=== PATIENT | male | born 1950 | race Caucasian/White ===

== ENCOUNTER 2024-11-04 23:33 | Inpatient (IN) | payer MEDICARE, SELFPAY ==
--- NOTE | ~2024-11-04 | XR_ITS ---
EXAMINATION: XR abdomen/kub 1V DATE: 11/09/2024 09:49 INDICATION: Nausea. TECHNIQUE: A supine view of the abdomen was obtained. COMPARISON: CT abdomen and pelvis 11/05/2024 FINDINGS: There are no dilated loops of bowel. There is a moderate volume of stool in the colon. Ther e is a benign bone island in left femoral head. IMPRESSION: 1. Normal bowel gas pattern. Reviewed, dictated and finalized at location A.
--- NOTE | ~2024-11-04 | XR_ITS ---
EXAMINATION: XR chest 1V portable DATE: 11/08/2024 05:55 INDICATION: Pneumonia. TECHNIQUE: A single frontal view of the chest was obtained on 2 radiographs. COMPARISON: Chest single view 11/07/2024, chest CT 11/05/2024 FINDINGS: The patient is rotated to his left. There is mild elevation of right hemidiaphragm. There a re mild airspace opacities in left lower lobe. No pleural effusion or pneumothorax. The heart size is normal. IMPRESSION: 1. Mild airspace opacities in left lower lobe with interval improvement, consistent with pneumonia. Reviewed, dictated and finalized at location A. IMPRESSION: 1. Mild airspace opacities in left lower lobe with interval improvement, consis tent with pneumonia.
--- NOTE | ~2024-11-04 | XR_ITS ---
EXAMINATION: XR barium swallow modified DATE: 11/08/2024 14:06 INDICATION: Dysphagia. Pneumonia. TECHNIQUE: The patient was given barium-containing material of multiple consistencies to swallow by t kaylee speech pathologist while I performed fluoroscopy. Fluoroscopy exposure time was 0.6 minutes. The n umber of fluoroscopy images saved to the PACS was 1. Dose-area product was 0.4776 Gy-cm^2. FINDINGS: The oral stage, pharyngeal stage, and cervical/esophageal stage of the swallow are normal. IMPRESSION: 1. Normal modified barium swallow. 2. Please refer to the speech therapy report for recommendations. Reviewed, dictated and finalized at location A.
--- NOTE | ~2024-11-04 | XR_ITS ---
EXAMINATION: XR chest 1V portable DATE: 11/07/2024 06:07 INDICATION: Pneumonia. TECHNIQUE: A single frontal view of the chest was obtained. COMPARISON: Chest single view 11/06/2024, chest CT 11/05/2024 FINDINGS: The patient is rotated to his left. There are airspace opacities in the lower lung zones. N o pleural effusion or pneumothorax. The heart size is normal. There is a prominent left pericardial f at pad. The nasogastric tube tip is beyond the inferior margin of the radiograph, but at least to the stomach. The endotracheal tube tip is 4.1 cm above the gaby. There are likely changes of distal ri ght clavicle resection. IMPRESSION: 1. Stable airspace opacities in the lower lung zones, consistent with pneumonia. Reviewed, dictated and finalized at location A. IMPRESSION: 1. Stable airspace opacities in the lower lung zones, consistent with pneumonia .
--- NOTE | ~2024-11-04 | XR_ITS ---
EXAMINATION: XR chest 1V portable DATE: 11/10/2024 05:49 INDICATION: Pneumonia. TECHNIQUE: A single frontal view of the chest was obtained. COMPARISON: Chest single view 11/09/2024 FINDINGS: There is no pneumonia, pleural effusion, or pneumothorax. The heart size is normal. IMPRESSION: 1. No acute cardiopulmonary disease. Reviewed, dictated and finalized at location A.
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
--- NOTE | ~2024-11-04 | XR_ITS ---
CHEST RADIOGRAPH CLINICAL HISTORY: Pneumonia . COMPARISON: 11/04/2024 TECHNIQUE: Single portable view of the chest. FINDINGS Endotracheal tube is identified with its tip projecting approximately 3 cm above the base of the heather na. Nasogastric tube identified with its tip extending below the left hemidiaphragm, presumably within th e stomach. The remainder of the cardiomediastinal silhouette is otherwise unremarkable. Air bronchograms are present within the superior segment of the right lower lobe and the left lower l obe, along the medial margin for which infiltrates are suspected. The remainder of the lungs are clear. IMPRESSION: Bilateral infiltrates, as detailed above. Supportive lines and tubes in good position. Reviewed, dictated and finalized at location A.
--- NOTE | ~2024-11-04 | XR_ITS ---
EXAMINATION: XR chest 1V portable DATE: 11/09/2024 05:47 INDICATION: Pneumonia. TECHNIQUE: A single frontal view of the chest was obtained. COMPARISON: Chest single view 11/08/2024, chest CT 11/05/2024 FINDINGS: There are mild airspace opacities in left lower lung zone. No pleural effusion or pneumotho rax. The heart size is normal. IMPRESSION: 1. Stable mild airspace opacities in left lower lung zone, consistent with pneumonia. Reviewed, dictated and finalized at location A. IMPRESSION: 1. Stable mild airspace opacities in left lower lung zone, consistent with pneu monia.
--- NOTE | ~2024-11-04 | XR_ITS ---
XR abdomen gastric tube insert INDICATION: Evaluate position. TECHNIQUE: Limited KUB perform for evaluating NG tube . COMPARISON: No prior studies for comparison. FINDINGS: NG tube tip in the stomach. Visualized bowel gas pattern is unremarkable.Patchy bilateral airspace disease of the lungs, consistent with pneumonia. IMPRESSION: 1: NG tube tip in the stomach. Reviewed, dictated and finalized at location B.
--- NOTE | ~2024-11-04 | CT_ITS ---
EXAMINATION: CT BRAIN W/O DATE: 11/05/2024 00:36 INDICATION: Head trauma TECHNIQUE: Computed tomography (CT) of the head was performed without intravenous contrast. The dose- length product was 983.67 mGy-cm. Automated exposure control and iterative reconstruction technique were employed. COMPARISON: No prior studies for comparison. FINDINGS: Mild generalized atrophy. There are scattered mild periventricular and subcortical white ma tter changes, most likely related to small vessel ischemic disease (microangiopathy). No ventriculome perla or midline shift. Mild mucosal thickening of the ethmoid sinuses. Mastoids are pneumatized. No d epressed skull fractures. No ventriculomegaly or midline shift. Midline sagittal images demonstrate a normal corpus callosum, c raniovertebral junction and sella turcica. Basilar cisterns are patent. Paranasal sinuses and mastoids are pneumatized. No depressed skull fractures. IMPRESSION: 1. No acute intracranial abnormality. Reviewed, dictated and finalized at location B.
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
--- NOTE | ~2024-11-04 | CT_ITS ---
EXAMINATION: CT chest abdomen pelvis wo con DATE: 11/05/2024 07:01 CDT INDICATION: Trauma. TECHNIQUE: Computed tomography (CT) of the chest and abdomen was performed without intravenous contra st. The dose-length product was 1162.08 mGy-cm. Automated exposure control and iterative reconstructi on technique were employed. COMPARISON: None FINDINGS: CHEST CT: There is an endotracheal tube present. NG tube in the stomach. There is patchy bilateral airspace con solidation of all lobes predominantly affecting the lower lobes, compatible with pneumonia. No pneumo thorax. No endobronchial lesions. Contrast not given for evaluation of pulmonary embolism. Moderate t horacic and lumbar spondylosis. Small hiatal hernia. ABDOMEN CT: The liver, spleen, pancreas, adrenal glands and kidneys are unremarkable. No focal bowel thickening. Enlarged prostate gland. Allen catheter present in the bladder. Nonobstructive bowel gas pattern. No significant abnormality of the aorta. No lymphadenopathy. Small left inguinal hernia. No acute osseou s abnormality. There is moderate thoracic and lumbar spondylosis. There is a sclerotic lesion of the left femoral head, likely benign bone island, although metastatic disease not excluded. IMPRESSION: 1. Extensive patchy airspace consolidation, consistent with pneumonia. 2: Sclerotic lesion left femoral head, most likely benign bone island, although in the presence of en larged prostate gland, metastatic disease secondary to prostate cancer should be considered. Reviewed, dictated and finalized at location B. IMPRESSION: 1. Extensive patchy airspace consolidation, consistent with pneumonia. 2: Sclerotic lesion left femoral head, most likely benign bone island, although in the presence of enlarged prostate gland, metastatic disease secondary to pr ostate cancer should be considered.
--- NOTE | ~2024-11-04 | US_ITS ---
EXAMINATION: US carotid duplex BI DATE: 11/06/2024 12:24 INDICATION: Syncope TECHNIQUE: Grayscale, color Doppler, and pulsed Doppler images of the cervical carotid arteries were obtained. The degree of vessel stenosis is placed in one of the following categories: normal, <50%, 5 0-69%, >=70% but less than near-occlusion, near-occlusion, or total occlusion. Note that percent sten osis relative to normal distal artery lumen diameter is indirectly measured from velocity measurement s as described by Ananda, et al. Radiology 2003; 229:340-346. COMPARISON: None. FINDINGS: RIGHT: The right common carotid artery (CCA) peak systolic velocity (PSV) is 77.8 cm/s. The right internal c arotid artery (ICA) PSV is 67.7 cm/s. The right ICA end-diastolic velocity (EDV) is 9.5 cm/s. The rig ht ICA/CCA PSV ratio is 0.9. Grayscale and color Doppler images yield an estimate of less than 50% di ameter reduction from plaque in the ICA. The external carotid artery (ECA) PSV is 203.6 cm/s. There i s antegrade flow in the right vertebral artery. LEFT: The left CCA PSV is 98.6 cm/s. The left ICA PSV is 112.5 cm/s. The left ICA EDV is 21.2 cm/s. The lef t ICA/CCA PSV ratio is 1.1. Grayscale and color Doppler images yield an estimate of less than 50% agustín meter reduction from plaque in the ICA. The ECA PSV is 116.2 cm/s. Left vertebral artery flow is not visualized. IMPRESSION: 1. Less than 50% stenosis in the right internal carotid artery. 2. Less than 50% stenosis in the left internal carotid artery. Reviewed, dictated and finalized at Location A. Reviewed, dictated and finalized at location A.
--- NOTE | ~2024-11-04 | NM_ITS ---
EXAMINATION: NM bone scan whole body DATE: 11/14/2024 14:44 INDICATION: Femoral bone lesion. TECHNIQUE: 25.7 mCi Tc-99m HDP was administered intravenously. Delayed whole-body scintigrams were o btained. Additional smaller [id number] anterior and posterior scintigrams of the bilateral femurs were obtained and left and right lateral scintigrams of the cervical spine were obtained. COMPARISON: CT cervical spine and chest, abdomen and pelvis dated 11/05/2024 FINDINGS: Focal increased uptake associated with severe facet osteoarthritis as evidenced on prior CT on the le ft at C2-C3 and C7-T1. Degenerative joint centered uptake with corresponding osteoarthritic changes a t the bilateral sternoclavicular and left acromioclavicular joints. Additional likely degenerative bety int centered uptake at the bilateral hands and wrists at the medial compartment of the right knee. Th ere is some urine contamination projecting over the left thigh and hip on the anterior whole-body sci ntigrams which is not present on the follow-up smaller [id number] scintigrams. No abnormal uptake associated with the large sclerotic bone islands with typical spiculated margins at the left femoral neck. IMPRESSION: 1. No abnormal uptake associated with the large amount at the left femoral neck. 2. Scattered degenerative joint centered uptake in the axial and appendicular skeleton as detailed ab ove. No other lesions suspicious for malignancy/metastatic disease. Reviewed, dictated and finalized at location B. IMPRESSION: 1. No abnormal uptake associated with the large amount at the left femoral neck . 2. Scattered degenerative joint centered uptake in the axial and appendicular s ke[place] as detailed above. No other lesions suspicious for malignancy/metastati c disease.
[2024-11-04 23:16] VITALS: BP 151/110; PULSE 139; RESP 26; TEMP 36.3; O2SAT 100
[2024-11-04 23:40] VITALS: O2SAT 92
--- NOTE | 2024-11-04 23:44 | ECG_ITS ---
Test Date: 2024-11-04 23:34:53 Measurements Intervals [place] Rate: 140 P: 244 MS: 89 QRS: -40 QRSD: 150 T: 87 QT: 359 QTc: 549 Interpretive Statements TACHYCARDIA, POSSIBLY EXTREME SINUS TACHYCARDIA VS ATRIAL FLUTTER LEFT AXIS DEVIATION [QRS AXIS < -30] LEFT BUNDLE BRANCH BLOCK [120+ ms QRS DURATION, 80+ ms Q/S IN V1/V2, 85+ ms R IN I/aVL/V5/V6] No previous ECG available for comparison Electronically Signed On 11-05-2024 17:33:32 CDT by Jose Luis Yeager M.D.
[2024-11-04 23:45] VITALS: O2SAT 94
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
[2024-11-04 23:58] VITALS: PULSE 99; O2SAT 100
[2024-11-04] MEDS: ETOMIDATE 20 MG/10 ML AMPUL IV PUSH (23:59)
[2024-11-04] MEDS: SUCCINYLCHOLINE CHLORIDE 20 MG/ML 10 ML VIAL 100 MG IV PUSH (23:59)
[2024-11-05] VITALS (48 sets, daily range): BP systolic 93–179; BP diastolic 45–128; PULSE 71–134; RESP 12–25; TEMP 37.1–37.9; O2SAT 97–100; BMI 29.2
[2024-11-05] MEDS: PROPOFOL IV EMULSION 100 ML 2.93 MG IV CONT
--- NOTE | 2024-11-05 | ECHO_ITS ---
Patient Info Name: Renaldo Whitaker Age: 74 years : 1950 Gender: Male Ht: 72 in Wt: 215 lbs BSA: 2.25 m2 HR: 91 bpm BP: 148 / 101 mmHg Heart Rhythm: Sinus Rhythm Technical Quality: Fair Exam Date: 11/05/2024 1:28 PM Exam Location: Echo Lab Patient Status: Inpatient Admit Date: 11/05/2024 Staff Ordering Physician: Ce Melendez PA-C Wet Room Worker: Mary Harmon RDCS Attending Provider: Nataly Chavis MD Referring Physician: Nora MAC; Exam Type: CA echo doppler color flow Study Info Indications - LBBB - Syncope Complete two-dimensional, color flow and Doppler transthoracic echocardiogram is performed. Summary 1. Left ventricular chamber dimension is normal. 2. There is mildly increased left ventricular wall thickness. 3. Left ventricular systolic function is moderately reduced, estimated at 30-35%. 4. Global hypokinesis with more pronounced hypokinesis of the anteroseptum, mid inferoseptum, apex. 5. The left ventricular diastolic function is grade I diastolic dysfunction. 6. Right ventricular systolic function is normal. 7. Left atrial chamber dimension is moderately enlarged. 8. No significant valvular disease. Left Ventricle Left ventricular chamber dimension is normal. There is mildly increased left ventricular wall thickness. Left ventricular systolic function is moderately reduced, estimated at 30-35%. Global hypokinesis with more pronounced hypokinesis of the anteroseptum, mid inferoseptum, apex. The left ventricular diastolic function is grade I diastolic dysfunction. Right Ventricle Right ventricular chamber dimension is normal. Right ventricular systolic function is normal. Left Atria Left atrial chamber dimension is moderately enlarged. Right Atria Right atrial chamber dimension is normal. Atrial Septum Intact interatrial septum visualized by color flow imaging. Aortic Valve The aortic valve is probable trileaflet. There is no aortic valve stenosis. There is no aortic valve regurgitation. There is mild aortic valve calcification. Pulmonic Valve The pulmonic valve is not well visualized. There is no pulmonic regurgitation. Mitral Valve There is trace mitral valve regurgitation. Tricuspid Valve There is trace tricuspid valve regurgitation. Pericardium/Pleural There is no pericardial effusion. Inferior Vena Cava Inferior vena cava is not well visualized. Aorta The aortic root size at the sinus of Valsalva is normal. Left Ventricular Outflow Tract Name Value Normal LVOT 2D LVOT Diameter 2.1 cm LVOT Doppler LVOT Peak Gradient 4 mmHg LVOT Mean Gradient 2 mmHg LVOT VTI 19 cm LVOT VTI/AV VTI Ratio 0.8 LVOT Stroke Volume 67 ml LVOT CO 5.0 l/min LVOT CI 2.2 l/min/m2 Pulmonic Valve Name Value Normal RVOT Doppler RVOT Peak Gradient 2 mmHg PV Doppler PV Peak Gradient 3 mmHg Mitral Valve Name Value Normal MV Doppler MV Decel [place] 212 cm/s2 MV PHT 61 ms MV Area (PHT) 3.6 cm2 4.0-5.0 MV Diastolic Function MV E Peak Velocity 45 cm/s MV A Peak Velocity 94 cm/s MV E/A 0.5 MV Decel Time 211 ms MV Annular TDI MV E/e' (Septal) 14.4 <=8.0 MV E/e' (Lateral) 9.2 <=8.0 MV E/e' (Average) 11.8 Tricuspid Valve Name Value Normal TV Regurgitation Doppler TR Peak Velocity 121 cm/s TR Peak Gradient 6 mmHg Aortic Valve Name Value Normal AV Doppler AV Peak Velocity 121 cm/s AV Peak Gradient 6 mmHg AV Mean Gradient 4 mmHg AV VTI 25 cm AV Area (Cont Eq VTI) 2.7 cm2 >=3.0 AV Area (Cont Eq Vipin) 2.9 cm2 AV Regurgitation 2D LVOT Area 3.6 cm2 Ventricles Name Value Normal LV Dimensions 2D/MM IVS Diastolic Thickness (2D) 1.1 cm 0.6-1.0 LVID Diastole (2D) 4.4 cm 4.2-5.8 LVIW Diastolic Thickness (2D) 1.1 cm 0.6-1.0 LVID Systole (2D) 3.2 cm 2.5-4.0 LVOT Diameter 2.1 cm LV Mass (2D Cubed) 175.25 g 88.00-224.00 LV Mass Index (2D Cubed) 78 g/m2 49-115 Relative Wall Thickness (2D) 0.52 LV Fractional Shortening/Ejection Fraction 2D/MM LV Fractional Shortening (2D) 28 % 25-43 LV EF (2D Teicholz) 55 % 52-72 LV Diastolic Volume (4C MOD) 164 ml LV EF (4C MOD) 57 % LV Diastolic Volume (2C MOD) 164 ml LV EF (2C MOD) 48 % LV Diastolic Volume (BP MOD) 167 ml 62-150 LV Diastolic Volume Index (BP MOD) 74 ml/m2 34-74 LV Systolic Volume (BP MOD) 81 ml 21-61 LV Systolic Volume Index (BP MOD) 36 ml/m2 11-31 LV EF (BP MOD) 51 % 52-72 LV Diastolic Length (4C) 8.9 cm LV Systolic Length (4C) 7.5 cm LV Stroke Volume (4C MOD) 93 ml Atria Name Value Normal LA Dimensions LA Volume (4C A-L) 74 ml LA Volume (BP A-L) 72 ml RA Dimensions RA Area (4C) 14.2 cm2 <=18.0 Report Signatures
[2024-11-05 00:07] LABS: Add Urine Microscopic? YES; Appearance Urine Clear (Clear); Bacteria Urine None Seen /hpf; Bilirubin Urine Negative (Negative); Blood Urine Trace (Negative); Color Urine Yellow (Yellow); Glucose Urine UA 2+ mg/dL (Negative); Ketones Urine Negative (Negative); Leukocyte Esterase Ur Negative LEU/UL (Negative); Nitrate Urine Negative (Negative); Non Pathogenic Casts 0-2; Protein Urine 2+ mg/dL (Negative); Specific Grav Ur 1.017 (1.001-1.035); Squamous Epithelial Cell Urine None Seen /hpf (Few); Urobilinogen Urine 0.2 mg/dL (<2.0); WBC Urine 0-5 /hpf (0-3)
[2024-11-05 00:09] LABS: Lactic Acid Reflex 2.3 mmol/L (0.7-2.0)
[2024-11-05 00:10] LABS: Alanine Aminotransferase 50 U/L (6-50); Albumin Level 4.7 g/dL (3.5-5.1); Alkaline Phosphatase 81 U/L (38-126); Anion Gap 16 mmol/L (4-12); Aspartate Amino Transferase 45 U/L (17-59); Blood Urea Nitrogen 12 mg/dL (9-20); Calcium 8.7 mg/dL (8.4-10.2); Carbon Dioxide 19 mmol/L (22-30); Chloride 103 mmol/L (98-107); Estimated CRCL calculation 62 ml/min; Estimated Glomerular Filt Rate > 60; Glucose 189 mg/dL (65-110); Lipase 130 U/L (23-300); Magnesium 1.8 mg/dL (1.6-2.3); Potassium 3.6 mmol/L (3.4-5.0); Sodium 138 mmol/L (137-145); Triglycerides 172 mg/dL (<150)
[2024-11-05 00:11] LABS: Ethanol < 10 mg/dL (<10)
[2024-11-05 00:15] LABS: Prothrombin Time 13.2 Seconds (11.1-14.7)
[2024-11-05 00:16] LABS: Basophils Percent Auto 0.3 % (0.2-1.2); Eosinophils Absolute Auto 0.1 K/mm3 (0-0.3); Eosinophils Percent Auto 1.5 % (0-4.4); Hematocrit 48.5 % (42.0-52.0); Hemoglobin 17.2 g/dL (14.0-18.0); Immature Granulocyte Absolute 0.04 K/mm3 (0.00-0.031); Immature Granulocyte Percent A 0.5 % (0-0.5); Lymphocytes Absolute Auto 0.98 K/mm3 (0.9-3.2); Lymphocytes Percent Auto 11.2 % (18.3-44.2); Mean Corpuscular HGB Conc 35.5 g/dl (32-36); Mean Corpuscular Hemoglobin 32.9 pg (26-34); Mean Corpuscular Volume 92.7 fl (80-100); Mean Platelet Volume 10.5 fl (7.4-10.4); Monocytes Percent Auto 11.4 % (2.6-8.5); Neutrophils Absolute Auto 6.6 K/mm3 (1.3-6.7); Neutrophils Percent Auto 75.1 % (45.5-73.1); Partial Thromboplastin Time 36.6 Seconds (22.3-36.8); Platelet Count Result 182 k/mm3 (150-375); Red Blood Count 5.23 M/mm3 (4.6-6.20); Red Cell Distribution Width 11.9 % (11.5-14.5); White Blood Count 8.8 K/mm3 (4.5-10.0)
[2024-11-05 00:26] LABS: NT Pro B Type Natriuretic Pept 372 pg/mL (19.9-100); Troponin I 0.022 ng/mL (0.000-0.034)
[2024-11-05 00:30] LABS: Amphetamine Screen Urine Negative (Negative); Barbiturate Screen Urine Negative (Negative); Benzodiazepines Screen Urine Negative (Negative); Cannabinoid Screen Urine Negative (Negative); Cocaine Screen Urine Negative (Negative); Methadone Screen Urine Negative (Negative); Opiate Screen Urine Negative (Negative); Phencyclidine Screen Urine Negative (Negative)
[2024-11-05 00:33] LABS: Procalcitonin 0.1 ng/mL
[2024-11-05 00:33] LABS: Influenza A QL RT-PCR Negative (Negative); Influenza B QL RT-PCR Negative (Negative); RSV RNA, RT-PCR Negative (Negative); SARS-CoV-2 RNA PCR Positive (Negative)
[2024-11-05 00:49] LABS: Alveolar/Arterial O2 Gradient 283.2 mmHg; Base Excess ABG -3.6 mEq/l (+/-2.0); Fractional Inspired Oxygen 60 %; HCO3 ABG 20.7 mEq/l (22.0-26.0); Oxygen Content ABG 24.2 %vol (16.0-22.0); Oxygen Saturation ABG 97.8 % (95.0-100.0); Oxyhemoglobin 97.5 % THb (90.0-100.0); PCO2 ABG 35.8 mmHg (35.0-45.0); PO2 ABG 105.2 mmHg (80.0-100.0); PO2 FiO2 Ratio Arterial Blood 1.75 %; Total Hemoglobin 17.6 g/dL (12.0-18.0)
[2024-11-05 00:54] LABS: Device VENTILATOR; Modified Allen's Test Pass; Site Drawn LEFT RADIAL
[2024-11-05 00:55] LABS: Arterial Blood Gas PEEP 5 cmH2O; Arterial Blood Gas Tidal Volume 500 ml; Arterial Blood Gas Vent Mode CMV; Arterial Blood Gas Ventilator rate 18 /MIN
[2024-11-05] MEDS: FENTANYL 2,500MCG/NS250ML(*CRX 2,500 MCG/250 ML BAG IV CONT ×2 (01:07→05:24)
[2024-11-05] MEDS: MIDAZOLAM 100MG/NS 100ML(*CRX) 100 MG/100 ML BAG IV CONT (01:08)
--- OUTSIDE RECORDS SUMMARY | 2024-11-05 01:13 | XMS_ITS | Encounter Summary ---
Author Organization [facility] Facility Care Team Providers Care Photoengraving Retoucher Name Role Phone Noam Acevedo MD Primary Care Provider [phone] Shana Rogers MD, Sharif Spencer Primary Care Provide r Mehran Colon MD Unavailable [phone] Encounter Details Date Type Department Care Team (Latest Contact Info) Description 08/13/2018 Orders Only [facility] ProviderTanya MD [address] [place] [id number] Social History Tobacco Use Types Packs/Day Years Used Date Smoking Tobacco: Never Assessed Sex and Gender Information Value Date Recorded Sex Assigned at Not on file Legal Sex Male 1:17 PM SILK SPOTTER Gender Identity Not on file Sexual Orientation Not on file documented as of this encounter Plan of Treatment Not on file documented as of this encounter Procedures Procedure Name Priority Date/Time Associated Diagnosis Comments CARDIOLOGY REPORT 09/06/2018 12: 00 AM SILK SPOTTER documented in this encounter Results * CARDIOLOGY REPORT (09/06/2018 12:00 AM SILK SPOTTER) Anatomical Region Laterality Modality Other Narrative 09/06/2018 12:00 AM SILK SPOTTER Ordered by an unspecified provider. Historical Provider [facility] MICAELA OLIVARES Final Result documented in this encounter Visit Diagnoses Not on filedocumented in this encounter Care Teams Photoengraving Retoucher Relationship Specialty Start Date End Date Noam Acevedo MD [address] [facility] [address] [place] [address] PCP - General 10/06/18 10/05/22 Sharif Saldana Jr., MD [address] [place] [id number] PCP - General Internal Medicine 10/06/22 Mehran Colon MD [address] [place] [address] Referring Physician Gastroenterology 10/06/22 documented as of this encounter
--- OUTSIDE RECORDS SUMMARY | 2024-11-05 01:13 | XMS_ITS | Encounter Summary ---
Author Organization [facility] - [facility] Address [address] [place] [address] Care Team Providers Care Vending Machine Refiller Name Role Phone Noam Acevedo MD Primary Care Provider Noam Acevedo MD Unavailable [phone] Encounter Details Date Type Department Care Team (Late st Contact Info) Description 08/23/2020 MyChart Message Enc [facility] Medical Group Multispecialty Care - [facility] [address] [facility] [place] [address] Tevin Garcia MD [address] [address] Question Social History Tobacco Use Types Packs/Day Years Used Date Smoking Tobacco: Former Cigarettes Q uit: 08/07/1985 Smokeless Tobacco: Never Alcohol Use Standard Drinks/Week Comments No 0 (1 standard drink = 0.6 oz pur e alcohol) AUDIT-C Answer Date Recorded Frequency of Alcohol Consumption Never 08/07/2018 Average Number of Drinks Not on file 018 Frequency of Binge Drinking Not on file 07/18 PHQ-2 Answer Date Recorded PHQ-2 Score 0 11/14/2018 Sex and Gender Information Value Date Recorded Sex Assigned at Not on file Legal Sex Male 7:02 PM CDT Gender Identity Male 10/25/2021 9:52 AM NUDE MODEL Sexual Orientation Straight 10/25/2021 9: 52 AM NUDE MODEL COVID-19 Exposure Response Date Recorded In the last month, have you been in contact with someone who was confirmed or suspected to have Coronavirus / COVID-19? No / Unsure 08/23/2020 4:08 PM NUDE MODEL documented as of this encounter Functional Status * RETIRED Are you deaf or do you have serious difficulty hearing Answer Date of Assessment Author Status No 08/09/2018 10:07 AM NUDE MODEL Acti ve * RETIRED Are you blind or do you have serious difficulty seeing, even when wearing glasses? Answer Date of Assessment Author Status No 08/09/2018 10:07 AM NUDE MODEL Acti ve * Do you have serious difficulty walking or climbing stairs? Answer Date of Assessment Author Status No 08/09/2018 10:07 AM Chika Anderson NP Active * Do you have difficulty dressing or bathing? Answer Date of Assessment Author Status No 08/09/2018 10:07 AM Chika Anderson NP Active * Because of a physical, mental, or emotional condition, do you have difficulty doing errands alone such as visiting a doctor's office or shopping? Answer Date of Assessment Author Status No 08/09/2018 10:07 AM Chika Anderson NP Active documented as of this encounter Mental Status * Because of a physical, mental, or emotional condition, do you have serious difficulty concentrating, remembering, or making decisions? Answer Entry Date Author Status No 08/09/2018 10:07 AM Chika Anderson NP Active documented in this encounter Plan of Treatment Not on file documented as of this encounter Visit Diagnoses Not on filedocumented in this encounter Additional Health Concerns Infection Onset Date Last Indicated Resolved Time COVID-19 Rule Out 09/28/2020 09/28/2020 09/28/2020 2:27 PM NUDE MODEL documented as of this encounter Care Teams Vending Machine Refiller Relationship Specialty Start Date End Date Noam Acevedo MD [address] [address] [place] [address] PCP - General 03/11/17 Noam Acevedo MD [address] [id number] PCP - Med Group - [facility] Attributed Provider 08/17/15 08/16/22 documented as of this encounter
--- OUTSIDE RECORDS SUMMARY | 2024-11-05 01:13 | XMS_ITS | Encounter Summary ---
Author Organization [facility] - [facility] Address [address] [place] [address] Care Team Providers Care Pension Examiner Name Role Phone Noam Acevedo MD Primary Care Provider Noam Acevedo MD Unavailable [phone] Encounter Details Date Type Department Care Team (Late st Contact Info) Description 08/23/2020 MyChart Message Enc [facility] Medical Group Multispecialty Care - [facility] [address] [facility] [place] [address] Tevin Garcia MD [address] [address] Other Social History Tobacco Use Types Packs/Day Years [...] CDT Gender Identity Male 10/25/2021 9:52 AM SHAFT TENDER Sexual Orientation Straight 10/25/2021 9: 52 AM SHAFT TENDER COVID-19 Exposure Response Date Recorded In the last month, have you been in contact with someone who was confirmed or suspected to have Coronavirus / COVID-19? No / Unsure 08/23/2020 4:08 PM SHAFT TENDER documented as of this encounter Functional Status * RETIRED Are you deaf or do you have serious difficulty hearing Answer Date of Assessment Author Status No 08/09/2018 10:07 AM SHAFT TENDER Acti ve * RETIRED Are you blind or do you have serious difficulty seeing, even when wearing glasses? Answer Date of Assessment Author Status No 08/09/2018 10:07 AM SHAFT TENDER Acti ve * Do you have serious [...] Rule Out 09/28/2020 09/28/2020 09/28/2020 2:27 PM SHAFT TENDER documented as of this encounter Care Teams Pension Examiner Relationship Specialty Start Date End Date Noam Acevedo MD [address] [address] [place] [address] PCP - General 03/11/17 Noam Acevedo MD [address] [id number] PCP - Med [facility] - [facility] Attributed Provider 08/17/15 08/16/22 documented as of this encounter
--- OUTSIDE RECORDS SUMMARY | 2024-11-05 01:13 | XMS_ITS | Referral Summary ---
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; Essential hypertriglyceridemia; Preventative health care from Last 3 Months Allergies No known active allergies Medications levocetirizine (XYZAL) 5 mg tablet 022 Active acyclovir (ZOVIRAX) 5 % ointment 022 Active aspirin 81 mg enteric coated tablet Take 1 tablet (81 mg total) by mouth daily Active magnesium oxide (MAG-OX) 400 mg (241.3 mg elemental magnesium) tabletIndications :hypomagnesemia Take 1 tablet (400 mg total) by mouth daily 90 tablet 3 023 Active Additional Information Patient not taking.Reported on 08/15/2024 atorvastatin (LIPITOR) 20 mg tabletIndications :Mixed hyperlipidemia Take 1 tablet (20 mg total) by mouth daily 90 tablet 3 023 Active diclofenac sodium (VOLTAREN) 1 % gelIndications:Pa in Apply 2 g topically 3 (three) times a day as needed (pain in toes) 100 g 1 024 Active clindamycin (CLEOCIN T) 1 % gelIndications:Ac ne Vulgaris Apply topically 2 (two) times a day Apply to face twice daily. 60 g 4 024 Active acyclovir (ZOVIRAX) 800 mg tabletIndications :HSV-1 infection Take 1 tablet (800 mg total) by mouth 2 (two) times a day as needed (HSV 1) 60 tablet 3 024 Active celecoxib (CeleBREX) 200 mg capsuleIndication s:Primary osteoarthritis involving multiple joints Take 1 capsule (200 mg total) by mouth daily as needed for pain 30 capsule 3 024 Active omeprazole (PriLOSEC) 40 mg capsuleIndication s:Gastroesophagea l reflux disease without esophagitis TAKE 1 CAPSULE DAILY 90 capsule 3 025 Active omeprazole (PriLOSEC) 40 mg capsuleIndication s:Gastroesophagea l reflux disease without esophagitis TAKE 1 CAPSULE DAILY 90 capsule 3 024 2024 Discontinued Active Problems Problem Noted Date Diagnosed Date Encounter for Medicare annual wellness exam 01/15 Assessment & Plan (02/08/2024 1:19 PM CDT): Reviewed previous labs and diagnostic test results. Chronic medical problems evaluated and management plans discussed with the patient. Prescription medications, supplements, vitamins and immunizations reviewed. Wear seatbelts. Use sunscreen. Discussed healthy diet and disease prevention and controlling portions including alcohol Discussed importance of scheduling recommended screening tests. Discussed importance of regular physical examinations for health maintenance. Discussed importance of a living will, advanced directives and establishing or updating healthcare power of mergers and acquisitions attorney document and providing our office with a copy. Assessment & Plan (01/29/2023 1:11 PM CDT): Reviewed previous labs and diagnostic test results. Chronic medical problems evaluated and management plans discussed with the patient. Prescription medications, supplements, vitamins and immunizations reviewed. Wear seatbelts. Use sunscreen. Discussed healthy diet and disease prevention and controlling portions including alcohol Discussed importance of scheduling recommended screening tests. Discussed importance of regular physical examinations for health maintenance. Discussed importance of a living will, advanced directives and establishing or updating healthcare power of mergers and acquisitions attorney document and providing our office with a copy. Coronary artery disease invo lving barrow coronary artery of barrow heart without angina pectoris 12/23/2022 Assessment & Plan (02/08/2024 1:18 PM CDT): Chronic stable Well controlled Continue current prescribed medications lipitor and aspirin at current dose Assessment & Plan (01/29/2023 1:11 PM CDT): Chronic stable Well controlled Continue current prescribed medications at current dose PAC (premature atrial contraction) 12/23/2022 Assessment & Plan (01/29/2023 1:11 PM CDT): Getting a holter per cardiology Mixed hyperlipidemia 12/23/2022 Assessment & Plan (02/08/2024 1:44 PM CDT): Chronic stable Well controlled Continue current prescribed medications lipitor at current dose Benign prostatic hyperplasia with weak urinary s tream 06/04/2022 PVC (premature ventricular contraction) 10/12/19 Overview (06/04/2022): PVC [place] was 10%. Hemorrhoids, external 06/09/2018 Erectile dysfunction 02/25/2018 Arthritis of left hip 08/20/2016 Allergic rhinitis 07/16/2016 Essential hypertriglyceridemia 07/16/2016 Assessment & Plan (01/29/2023 1:12 PM CDT): Chronic stable Well controlled Continue current prescribed medications at current dose 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/16/2016 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/2016 Elevated prostate specific antigen (PSA) 013 Resolved Problems Problem Noted Date Diagnosed Date Resolved Date Dizzy spells 03/11/2023 02/08/2024 Dizzy spells 12/23/2022 01/29/2023 Diverticulitis 02/27/2022 01/29/2023 Internal bleeding hemorrhoids 02/04/2019 01/29/2023 Benign prostatic hyperplasia with incomplete bladder emptying 07/13/2018 01/29/2023 Overview (10/06/2022): 07/24/22 had procedure No longer needs medication Assessment & Plan (10/06/2022 2:35 PM MOLDER HELPER): Had procedure and no longer needs medications Dysmetabolic syndrome X 11/20/201701/15 Impaired fasting glucose 11/20/2017 Gross hematuria 03/04/2017 01/29/2023 Gastroenteritis 09/24/2016 01/29/2023 Immunizations Immunization Administration Dates Next Due Influenza, Quadrivalent, Hig h Dose, Preservative Free, Intrr 05/23/2020 Influenza, Trivalent, High D ose, Split, Preservative Free, Intramuscular 07/07/2024,05/23/2020 Influenza, Unspecified 05/17/2022 Pneumococcal Conjugate PCV 13 12/28/2015 Pneumococcal Polysaccharide PPV23 05/23/2020 TD Preservative Free 05/23/2020 Tdap 11/30/2015 Social History Tobacco Use Types Packs/Day Years Used Date Smoking Tobacco: Former Cigarettes 1 20 Smokeless Tobacco: Former Snuff Tobacco Cessation:Counseling Given: Not Answered AUDIT-C Answer Date Recorded Frequency of Alcohol Consumption Not on file 02/08/2024 Q2: How many drinks containi ng alcohol do you have on a typical day when you are drinking? Patient does not drink Frequency of Binge Drinking Not on file 01/16 PHQ-2 Answer Date Recorded PHQ-2 Total Score (If total score is 3 or more points, staff should administer the PHQ-9) 0 08/15/2024 PHQ-9 Answer Date Recorded PHQ-9 Total Score 1 02/08/2024 Sex and Gender Information Value Date Recorded Sex Assigned at Not on file Legal Sex Male 1:17 PM MOLDER HELPER Gender Identity Not on file Sexual Orientation Not on file Last Filed Vital Signs Vital Sign Reading Time Taken Comments Blood Pressure 110/66 08/15/2024 12:57 PM MOLDER HELPER Pulse 88 08/15/2024 12:57 PM MOLDER HELPER Temperature 36.2 C (97.2 F) 08/15/2024 12:57 PM MOLDER HELPER Respiratory Rate 18 08/15/2024 12:57 PM MOLDER HELPER Oxygen Saturation 94% 08/15/2024 12:57 PM MOLDER HELPER Inhaled Oxygen Concentration - - Weight 83.9 kg (185 lb) 08/15/2024 12:57 PM MOLDER HELPER Height 180.3 cm (5' 11 ) 08/15/2024 12:57 PM MOLDER HELPER Body Mass Index 25.8 08/15/2024 12:57 PM MOLDER HELPER Plan of Treatment Not on file Medical Devices Implanted Type Area Denial Management Representative Device Identifier Shelf Expiration Date Model / Serial / Lot [facility] [employer] Embosphere Prefill Saline Syringe Compressible Nonaggregate [id number] - [id number] Implanted:Qty: 1 on 07/24/[address] [facility] [employer] 05/04/2025 [id number] / / [id number] [facility] [employer] Embosphere Prefill Saline Syringe Compressible Nonaggregate S420gh - [id number] Implanted:Qty: 1 on 07/24/[address] [facility] [employer] 04/04/2025 [id number] / / [id number] Medtronic Inc Coil Embolization Coated Detachable Helical Concerto [id number] Nylon Mb-8-4-[place] - [id number] Implanted:Qty: 1 on 07/24/2022 at [facility] Med[employer] Inc 03/10/2025 NV-4-8-HEL IX / / [id number] Medtronic Inc Coil Embolization Coated Detachable Helical Concerto [id number] Nylon Mp-7-9-[place] - [id number] Implanted:Qty: 1 on 07/24/2022 at [facility] [employer] 03/20/2025 NV-3-4-HEL IX / / [id number] [employer] Ulises Angio-Seal Vip 6fr Closere Device [id number] - [id number] Implanted:Qty: 1 on 07/24/2022 at [facility] [employer] Self Representation Document Preparation Ulises 03/16/2023 [id number] / / [id number] Ulises Coil Emolization Coated Detachable Embold [id number] [place] [employer] Tungsten [id number] - [id number] Implanted:Qty: 1 on 07/24/2022 at [facility] [employer] Ulises [id number] 01/26/2025 [id number] / / [id number] Medtronic Inc Coil Embolization Coated Detachable Helical Concerto [id number] Nylon Ld-1-7-[place] - [id number] Implanted:Qty: 1 on 07/24/2022 at [facility] [employer] 03/26/2025 NV-2-4-HEL IX / / [id number] Procedures Procedure Name Priority Date/Time Associated Diagnosis Comments PSA SCREEN Routine 06/03/2024 8:39 AM CDT Encounter for Medicare annual wellness exam COLONOSCOPY Routine 03/23/2024 2:20 PM CDT ABDOMINAL AORTIC ANEURYSM SCREENING Schedule Routine, Read Routine (OP Routine) 10/31/2022 9:59 AM CDT Smoking history from Last 3 Months or Most Recently Relevant to Health Maintenance Results * PSA screen (06/03/2024 8:39 AM CDT) PSA-Total 3.09 <=6.20 ng/mL Comment: Interpretive Data AGE SEX REFERENCE INTERVAL 0 minutes-150 years Female None 0 minutes-49 years Male None 50-59 years Male 0-3.90 60-69 years Male 0-5.40 70-79 years Male 0-6.20 80-150 years Male 0-6.20 The Enrique PSA Total assay procedure was used. Results from different manufacturers or methods may not be comparable. Serial testing should be performed using the same method. Current interpretive data last revised 21. Testing performed by: [facility], [address] [place] [address]., [id number] Blood 06/03/2024 8:39 AM CDT 06/03/2024 9:54 AM CDT Sharif Saldana Jr., MD LAB BLOOD ORDERABLES Final Result [facility] [address] [facility] Department [place] [address] * (ABNORMAL) COLONOSCOPY (03/23/2024 2:20 PM CDT) Scribed Colonoscopy Abnormal Historical Provider [facility] Final Result * US Abdominal Aortic Aneurysm Screening (10/31/2022 9:59 AM CDT) Anatomical Region Laterality Modality Abdomen Ultrasound 10/31/2022 5:01 PM CDT Narrative 10/31/2022 5:02 PM CDT EXAM DESCRIPTION: US ABDOMINAL AORTIC ANEURYSM SCREENING REASON FOR STUDY: AAA screening. History of smoking. TECHNIQUE: Grayscale images acquired of the aorta and stored on PACS. Selected color Doppler and spectral images recorded. COMPARISON: None FINDINGS: AORTIC CALIBER MAXIMAL PROXIMAL: Obscured by bowel gas cm. MID: 2.1 cm. DISTAL: 2 cm. ILIAC DIAMETER RIGHT: 1.2 cm. LEFT: 1.2 cm. OTHER: No other significant finding. IMPRESSION: Proximal aorta obscured by bowel gas. No abdominal aortic aneurysm. REFERENCE: Please see below follow up recommendations for abdominal aortic aneurysm surveillance per Society for Vascular Surgery Guidelines: < 2.6 cm No follow up necessary 2.62.9 cm Recommended ultrasound follow up every 5 years 3.0-3.4 cm Recommended ultrasound follow up every 3 years 3.5-3.9 cm Recommended ultrasound follow up every 12 months 4.0-4.9 cm Recommended ultrasound follow up every 12 months, vascular surgery consult 5.0-5.4 cm Recommended ultrasound follow up every 6 months, vascular surgery consult >= 5.5 cm Referral to vascular surgeon Based upon Society for Vascular Surgery Guidelines: J Vasc Surgery 2008 50: s2s49; updated Aug 2017 J Vasc Surgery 67:277 THIS IS AN ELECTRONICALLY VERIFIED FINAL REPORT 10/31/2022 5:02 PM - Electronically signed by Gian Goncalves M.D. JA: LUIS Report ID: [id number] Reading Location: [id number] Procedure Note Gian Goncalves MD - 10/31/2022 EXAM DESCRIPTION: US ABDOMINAL AORTIC ANEURYSM SCREENING REASON FOR STUDY: AAA screening. History of smoking. TECHNIQUE: Grayscale images acquired of the aorta and stored on PACS.Selected color Doppler and spectral images recorded. COMPARISON: None FINDINGS: AORTIC CALIBER MAXIMAL PROXIMAL: Obscured by bowel gas cm. MID: 2.1 cm. DISTAL: 2 cm. ILIAC DIAMETER RIGHT: 1.2 cm. LEFT: 1.2 cm. OTHER: No other significant finding. IMPRESSION: Proximal aorta obscured by bowel gas. No abdominal aortic aneurysm. REFERENCE: Please see below follow up recommendations for abdominal aortic aneurysm surveillance per Society for Vascular Surgery Guidelines: < 2.6 cm No follow up necessary 2.62.9 cm Recommended ultrasound follow up every 5 years 3.0-3.4 cm Recommended ultrasound follow up every 3 years 3.5-3.9 cm Recommended ultrasound follow up every 12 months 4.0-4.9 cm Recommended ultrasound follow up every 12 months, vascularsurgery consult 5.0-5.4 cm Recommended ultrasound follow up every 6 months, vascularsurgery consult >= 5.5 cm Referral to vascular surgeon Based upon Society for Vascular Surgery Guidelines: J Vasc Surgery 2009Oct 50: s2s49; updated Aug 2017 J Vasc Surgery 67:277 THIS IS AN ELECTRONICALLY VERIFIED FINAL REPORT 10/31/2022 5:02 PM - Electronically signed by Gian Goncalves M.D. JA: LUIS Report ID: [id number] Reading Location: [place] [address] Sharif Saldana Jr., MD [facility] PROCEDURES Fin al Result from Last 3 Months or Most Recently Relevant to Health Maintenance Insurance AETNA MEDICARE [facility] MEDICARE Address: [facility] [id number] [place], [place] [id number] [facility] MEDICARE [facility] MEDICARE Advance Directives For more information, please contact: [phone] * Full Code (Latest Code Status on File) Date Activated Date Inactivated Comments 07/24/2022 11:19 AM 07/25/2022 5:08 AM Care Teams Gastrointestinal Technician Relationship Specialty Start Date End Date Sharif Saladna Jr., MD [address] [place] [id number] PCP - General Internal Medicine 10/06/22 [place] [address] [place] [id number] Referring Physician Gastroenterology 10/06/22
--- OUTSIDE RECORDS SUMMARY | 2024-11-05 01:13 | XMS_ITS | Clinical Summary ---
Author Organization [facility] Address [facility] [place] [address] Care Team Providers Care Icu Specialist Name Role Phone Shana Rogers MD, Sharif Spencer Primary Care Provide r Mehran Colon MD Unavailable [phone] Allergies No known active allergies Medications levocetirizine [...] and establishing or updating healthcare power of insurance defense attorney document and providing our office with [...] and establishing or updating healthcare power of insurance defense attorney document and providing our office with a copy. Coronary artery disease invo lving [place] coronary artery of [place] heart without angina pectoris 12/23/2022 Assessment & [...] (premature ventricular contraction) 10/12/19 Overview (06/04/2022): PVC [place] was 10%. Hemorrhoids, external 06/09/2018 Erectile dysfunction [...] medication Assessment & Plan (10/06/2022 2:35 PM WASH BOX OPERATOR): Had procedure and no longer needs medications Dysmetabolic syndrome X 11/20/201701/15 Impaired fasting glucose 11/20/2017 Gross hematuria 03/04/2017 01/29/2023 Gastroenteritis 09/24/2016 01/29/2023 Encounters Date Type Department Care Team Description 08/15/2024 1:30 PM WASH BOX OPERATOR Office Visit [facility] Primary Care [address] [place] [phone] Sharif Saldana Jr., MD Primary osteoarthritis involving multiple joints (Primary Dx); HSV-1 infection; Coronary artery disease involving [place] lions coronary artery of [place] heart without angina pectoris; Essential hypertriglyceridemia; Preventative health care from Last 3 Months Immunizations Immunization Administration Dates Next Due Influenza, Quadrivalent, Hig h Dose, Preservative Free, Intrr 05/23/2020 Influenza, Trivalent, High D ose, Split, Preservative Free, Intramuscular 07/07/2024,05/23/2020 Influenza, Unspecified 05/17/2022 Pneumococcal Conjugate PCV 13 12/28/2015 Pneumococcal Polysaccharide PPV23 05/23/2020 TD Preservative Free 05/23/2020 Tdap 11/30/2015 Surgical History Surgery Date Site/Laterality Comments SHOULDER SURGERY PROSTATE BIOPSY EMBOLIZATION ORGAN ISCHEMIA OR INFARCTION 07/24/2022 N/A PROSTATE SURGERY P A E Medical History Medical History Date Comments BPH (benign prostatic hyperplasia) Elevated PSA GERD (gastroesophageal reflux disease) Unknown Family History Medical History Relation Name Comments Heart disease Father Hypertension Father Prostate cancer Father COPD Mother Relation Name Status Comments Father Mother Social History Tobacco Use Types Packs/Day Years [...] on file Legal Sex Male 1:17 PM WASH BOX OPERATOR Gender Identity Not on file Sexual Orientation Not on file Obstetrics History Last Filed Vital Signs Vital Sign Reading Time Taken Comments Blood Pressure 110/66 08/15/2024 12:57 PM WASH BOX OPERATOR Pulse 88 08/15/2024 12:57 PM WASH BOX OPERATOR Temperature 36.2 C (97.2 F) 08/15/2024 12:57 PM WASH BOX OPERATOR Respiratory Rate 18 08/15/2024 12:57 PM WASH BOX OPERATOR Oxygen Saturation 94% 08/15/2024 12:57 PM WASH BOX OPERATOR Inhaled Oxygen Concentration - - Weight 83.9 kg (185 lb) 08/15/2024 12:57 PM WASH BOX OPERATOR Height 180.3 cm (5' 11 ) 08/15/2024 12:57 PM WASH BOX OPERATOR Body Mass Index 25.8 08/15/2024 12:57 PM WASH BOX OPERATOR Plan of Treatment Health Maintenance Due Date Last Done Comments Hepatitis C Screening 1950 Hepatitis B Screening 1968 Zoster Vaccine (1 of 2) 2000 Covid-19 Vaccine (2023-2 5 season) 2024 07/31/2021, 10/05/2020, 09/07/2020 Fall Risk Assessment 02/07/2025 02/08/2024, 01/29/2023, 10/06/2022, Additional history exists Well Visit 65+ 02/07/2025 02/08/2024, 01/29/2023 Depression Screening 08/15/2025 08/15/2024, 02/08/2024, 02/08/2024, Additional history exists Prostate Cancer Screening-PSA 06/03/2026 06/03/2024, 10/31/2022 Colon Cancer Screening-Colonoscopy 03/23/20272023, 11/25/2018 DTaP/Tdap/Td Vaccine (3 - Td or Tdap) 05/23/2030 05/23/2020, 11/30/2015 Pneumococcal vaccine 65+ Completed 05/23/2020, 12/15 Abdominal Aortic Aneurysm (A AA) Screen Completed 10/31/2022, 12/16/2021, 03/11/2017 Influenza Vaccine Completed 07/07/2024, , 05/23/2020, Additional history exists Medical Devices Implanted Type Area Liquor Bridge Operator Helper Device Identifier Shelf Expiration Date Model / Serial / Lot [facility] [employer] Embosphere Prefill Saline Syringe Compressible Nonaggregate S220gh - [id number] Implanted:Qty: 1 on 07/24/2022 at [facility] [employer] 05/04/2025 S220GH / / [id number] [facility] Systems Embosphere Prefill Saline Syringe Compressible Nonaggregate S420gh - [id number] Implanted:Qty: 1 on 07/24/2022 at [facility] [employer] 04/04/2025 S420GH / / [id number] Med[employer]onic Inc Coil Embolization Coated Detachable Helical Concerto [id number] Nylon Ne-1-2-[place] - [id number] Implanted:Qty: 1 on 07/24/2022 at [facility] [employer] 03/10/2025 NV-4-8-HEL IX / / [id number] [employer] Coil Embolization Coated Detachable Helical Concerto [id number] Nylon Wl-3-7-[place] - [id number] Implanted:Qty: 1 on 07/24/2022 at [facility] [employer] 03/20/2025 NV-3-4-HEL IX / / [id number] [employer] Angio-Seal Vip 6fr Closere Device [id number] - [id number] Implanted:Qty: 1 on 07/24/2022 at [facility] [employer] 03/16/2023 [id number] / / [id number] [employer] Ulises Coil Emolization Coated Detachable Embold 6pet2ho [place] [employer]ung[employer] [id number] - [id number] Implanted:Qty: 1 on 07/24/2022 at [facility] [employer] Ulises [id number] 01/26/2025 [id number] / / [id number] Medtronic Inc Coil Embolization Coated Detachable Helical Concerto 7hex8ml Nylon Pr-7-1-[place] - [id number] Implanted:Qty: 1 on 07/24/2022 at [facility] [employer] 03/26/2025 NV-2-4-HEL IX / / [id number] Procedures Procedure Name Priority Date/Time Associated Diagnosis Comments PSA SCREEN Routine 06/03/2024 8:39 AM CDT Encounter for Medicare annual wellness exam HM COLONOSCOPY Routine 03/23/2024 2:20 PM CDT US ABDOMINAL AORTIC ANEURYSM SCREENING Schedule Routine, Read [...] Male 0-6.20 80-150 years Male 0-6.20 The Enri[employer]e PSA Total assay procedure was used. Results from different manufacturers or methods may not be comparable. Serial testing should be performed using the same method. Current interpretive data last revised 21. Testing performed by: [facility], [address] [place] [address]., [id number] Blood 06/03/2024 8:39 AM CDT 06/03/2024 9:54 AM CDT Sharif Saldana Jr., MD LAB BLOOD ORDERABLES Final Result Performing Organization Address City/State/[facility] Co de Phone Number CERNER [address] [facility] Department of Laboratories [place], [place] [id number] * (ABNORMAL) COLONOSCOPY (03/23/2024 2:20 PM CDT) Scribed Colonoscopy Abnormal Historical Provider HEALTH MAINTENANCE Final Result * US Abdominal Aortic Aneurysm Screening (10/31/2022 9:59 AM CDT) Anatomical Region Laterality Modality Abdomen Ultrasound 10/31/2022 5:0 1 PM CDT Narrative 10/31/2022 5:02 PM CDT [...] Gian Goncalves M.D. JA: LUIS Report ID: [id number] Reading Location: [id number] Procedure Note Gian Goncalves MD - 10/31/2022 [...] Gian Goncalves M.D. JA: LUIS Report ID: [id number] Reading Location: [id number] Sharif Saldana Jr., MD IM US PROCEDURES Fin al Result from Last 3 Months or Most Recently Relevant to Health Maintenance Insurance AETNA MEDICARE [facility] MEDICARE [facility] MEDICARE Advance Directives For more information, please contact: [phone] * Full Code (Latest Code Status on File) Date Activated Date Inactivated Comments 07/24/2022 11:19 AM 07/25/2022 5:08 AM Care Teams Icu Specialist Relationship Specialty Start Date End Date Sharif Saldana Jr., MD [address] [place] [id number] PCP - General Internal Medicine 10/06/22 Mehran Colon MD [address] [place] [address] Referring Physician Gastroenterology 10/06/22
--- OUTSIDE RECORDS SUMMARY | 2024-11-05 01:13 | XMS_ITS | Encounter Summary ---
Author Organization [facility] Address [facility] [place] [address] Care Team Providers Care Printer Slotter Feeder Name Role Phone Noam Acevedo MD Primary Care Provider Noam Acevedo MD Unavailable [phone] Encounter Details Date Type Department Care Team (Latest Contact Info) Description 06/22/2018 Abstract [facility] , Marcia Hopkins MD Social History Tobacco Use Types Packs/Day Years Used Date Smoking Tobacco: Never Assessed Sex and Gender Information Value Date Recorded Sex Assigned at Not on file Legal Sex Male 7:02 PM CDT Gender Identity Male 10/25/2021 9:52 AM REAL ESTATE PARALEGAL Sexual Orientation Straight 10/25/2021 9: 52 AM REAL ESTATE PARALEGAL documented as of this encounter Plan of Treatment Not on file documented as of this encounter Visit Diagnoses Not on filedocumented in this encounter Additional Health Concerns Infection Onset Date Last Indicated Resolved Time COVID-19 Rule Out 09/28/2020 09/28/2020 09/28/2020 2:27 PM REAL ESTATE PARALEGAL documented as of this encounter Care Teams Printer Slotter Feeder Relationship Specialty Start Date End Date Noam Acevedo MD [address] [place], [place] [id number] PCP - General 03/11/17 Noam Acevedo MD [address] [place] [address] PCP - Med Group - MSSP Attributed Provider 08/17/15 08/16/22 documented as of this encounter
--- OUTSIDE RECORDS SUMMARY | 2024-11-05 01:13 | XMS_ITS | Encounter Summary ---
Author Organization [facility] Care Team Providers Care Acute Care Physician Name Role Phone Noam Acevedo MD Primary Care Provider [phone] Shana Rogers MD, Sharif Spencer Primary Care Provide r Mehran Colon MD Unavailable [phone] Encounter Details Date Type Department Care Team (Latest Contact Info) Description 10/14/2018 Orders Only [facility] CLINCONV ProviderTanya MD [address] [place] [address] Social History Tobacco Use Types Packs/Day Years Used Date Smoking Tobacco: Never Assessed Sex and Gender Information Value Date Recorded Sex Assigned at Not on file Legal Sex Male 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 Historical Provider [facility] M[facility]A OLIVARES Final Result * CARDIOLOGY REPORT (10/18/2018 12:00 AM FROZEN MEAT CUTTER) Anatomical Region Laterality Modality Other Narrative 10/18/2018 12:00 AM FROZEN MEAT CUTTER Ordered by an unspecified provider. us Historical Provider [facility] MICAELA OLIVARES Final Result documented in this encounter Visit Diagnoses Not on filedocumented in this encounter Care Teams Acute Care Physician Relationship Specialty Start Date End Date Noam Acevedo MD [address] [facility] [address] [place], [place] [address] PCP - General 10/06/18 10/05/22 Sharif Saldana Jr., MD [address] [place] [address] [address] [place], [place] [phone] PCP - General Internal Medicine 10/06/22 Mehran Colon MD [address] [place] [address] Referring Physician Gastroenterology 10/06/22 documented as of this encounter
--- OUTSIDE RECORDS SUMMARY | 2024-11-05 01:13 | XMS_ITS | Clinical Summary ---
Author Organization [facility] Address [facility] [place] [address] Care Team Providers Care Sewage Plant Attendant Name Role Phone Noam Acevedo MD Primary Care Provider Allergies No known active allergies Medications FINASTERIDE 5 MG tabletIndication s:Benign prostatic hyperplasia with incomplete bladder emptying TAKE 1 TABLET DAILY 90 tablet 3 2 Active acyclovir 5 % creamIndications :HSV-1 infection Apply topically tid 5 g 2 2 Active Additional Information Patient taking differently: Apply topically tid. PRN use, Reported on 09/30/2021 acyclovir 800 MG tabletIndication s:HSV-1 infection Take 1 tablet (800 mg total) by mouth 3 (three) times daily. 15 tablet 2 2 Active acyclovir 5 % ointmentIndicati ons:HSV-1 infection Apply topically 3 (three) times daily as needed. 30 g 6 2 Active tamsulosin 0.4 MG CapIndications:B enign prostatic hyperplasia with incomplete bladder emptying TAKE 1 CAPSULE(0.4 MG) BY MOUTH TWICE DAILY 180 capsule 3 2 Active levocetirizine (XYZAL) 5 MG tabletIndication s:Allergic rhinitis due to pollen, unspecified seasonality take 1 tablet daily 90 tablet 3 4 Active Active Problems Problem Noted Date Diagnosed Date Diverticulitis 02/27/2022 Sprain of left wrist, initial encounter 07/14/20 22 Overweight with body mass in dex (BMI) of 27 to 27.9 in adult 01/30/2021 At increased risk for cardiovascular disease 03/2021 Primary osteoarthritis of right shoulder 019 Internal bleeding hemorrhoids 02/04/2019 Syncope 08/07/2018 Benign prostatic hyperplasia with incomplete bladder emptying 07/13/2018 Hemorrhoids, external 06/09/2018 Male erectile dysfunction 02/25/2018 Dysmetabolic syndrome X 11/20/2017 Impaired fasting glucose 11/20/2017 Pain in right knee 08/04/2017 Gross hematuria 03/04/2017 Chronic left shoulder pain 10/15/2016 Gastroenteritis 09/24/2016 Arthritis of left hip 08/20/2016 BPH (benign prostatic hyperplasia) 07/16/2016 Allergic rhinitis 07/16/2016 Arthritis of both hands 07/16/2016 Essential hypertriglyceridemia 07/16/2016 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/16/2016 Mixed hyperlipidemia 07/16/2016 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/2016 UTI symptoms 11/05/2015 Elevated prostate specific antigen (PSA) 013 Resolved Problems Problem Noted Date Diagnosed Date Resolved Date Encounter for preventive health examination 02/04/2013 04/27/2020 Immunizations Name Administration Dates Next Due Fluzone High Dose - >Age 65 (Prefilled Syringe) 05/23/2020 Influenza (Generic) 05/17/2022 MODERNA COVID-19 (12+) MRNA, LNP-S, PF, 100 MCG/ 0.5 ML DOSE 10/05/2020,09/07/2020 MODERNA COVID-19 (POLISHER ALUMINUM BERNIE IDALIA), MRNA, LNP-S, PF, 50 MCG/ 0.25 ML DOSE 07/31/2021 Pneumococcal (Pneumovax 23) 05/23/2020 Pneumococcal (Prevnar 13) 12/28/2015 Td (Tenivac) preservative free 05/23/2020 Tdap (Adacel) 11/30/2015 Family History Medical History Relation Comments Heart Disease Father Relation Status Comments Father Social History Tobacco Use Types Packs/Day Years Used Date Smoking Tobacco: Former Cigarettes Q uit: 08/07/1985 Smokeless Tobacco: Never Tobacco Cessation:Counseling Given: No Alcohol Use Standard Drinks/Week Comments No 0 (1 standard drink = 0.6 oz pur e alcohol) AUDIT-C Answer Date Recorded Frequency of Alcohol Consumption Never 08/07/2018 Average Number of Drinks Not on file 018 Frequency of Binge Drinking Not on file 07/18 PHQ-2 Answer Date Recorded PHQ-2 Score - If the patient scores above 3, please move on to questions 3-9 0 12/16/2021 Sex and Gender Information Value Date Recorded Sex Assigned at Not on file Legal Sex Male 7:02 PM CDT Gender Identity Male 10/25/2021 9:52 AM TILE MECHANIC HELPER Sexual Orientation Straight 10/25/2021 9: 52 AM TILE MECHANIC HELPER Last Filed Vital Signs Vital Sign Reading Time Taken Comments Blood Pressure 156/91 04/28/2022 1:08 PM CDT Pulse 68 04/28/2022 1:08 PM CDT Temperature 36.4 C (97.6 F) 04/28/2022 1:08 PM CDT Respiratory Rate 16 02/27/2022 10:5 2 AM CDT Oxygen Saturation 98% 04/28/2022 1:08 PM CDT Inhaled Oxygen Concentration - - Weight 89.7 kg (197 lb 12.8 oz) 04/28/2022 1:08 PM CDT Height 180.3 cm (5' 11 ) 02/27/2022 10: 52 AM CDT Body Mass Index 27.59 02/27/2022 10:52 AM CDT Plan of Treatment Health Maintenance Due Date Last Done Comments Hepatitis C 1968 Zoster Vaccines (1 of 2) 2000 Annual Medicare Wellness Visit 2015 COVID-19 Vaccine (4 - 2023-2 5 season) 2024 07/31/2021, 10/05/2020, 09/07/2020 Influenza Adult (#1) 2024 05/17/2022, 05/23/2020 PHQ-2 (Physician [place]) 08/17/2024 RSV Immunization or 60+ Years (1 - 1-dose 75+ series) 2025 Colorectal Cancer Screening Colonoscopy (10 Years) 11/25/2028 11/25/2018 DTaP, Tdap and Td Vaccines ( 3 - Td or Tdap) 05/23/2030 05/23/2020, 11/30/2015 Pneumococcal Vaccine: 65+ Years Completed 05/23/2020, 12/28/2015 Meningococcal B Vaccine Aged Out No l onger eligible based on patient's age to complete this topic Meningococcal Vaccine Aged Out No tanner true eligible based on patient's age to complete this topic RSV Immunizations Under 20 Months Aged Out No longer eligible b ased on patient's age to complete this topic Procedures Procedure Name Priority Date/Time Associated Diagnosis Comments COLONOSCOPY GENERIC (SCAN ORDER) Routine 11/25/2018 from Last 3 Months or Most Recently Relevant to Health Maintenance Results * COLONOSCOPY (11/25/2018) us Documents Scanned SCANNING Final Result from Last 3 Months or Most Recently Relevant to Health Maintenance Insurance [employer] Advance Directives * Full Code (Latest Code Status on File) Date Activated Date Inactivated Comments 08/07/2018 3:48 PM 08/09/2018 2:02 PM Care Teams Sewage Plant Attendant Relationship Specialty Start Date End Date Noam Acevedo MD [address] [facility] [address] [place] [address] PCP - General 03/11/17
--- OUTSIDE RECORDS SUMMARY | 2024-11-05 01:13 | XMS_ITS | Encounter Summary ---
Author Organization [facility] Address [address] [place] [address] Care Team Providers Care Computing Services Director Name Role Phone Noam Acevedo MD Primary Care Provider Encounter Details Date Type Department Care Team (Late st Contact Info) Description 02/20/2023 Cel-Fi by Nextivity Message Enc [facility] Family Medicine - [place] [address] [facility], [address] [place] [address] [place], [facility] Provider Shingles Vaccines Social History Tobacco Use Types Packs/Day Years [...] CDT Gender Identity Male 10/25/2021 9:52 AM TANK CARPENTER Sexual Orientation Straight 10/25/2021 9: 52 AM TANK CARPENTER documented as of this encounter Functional Status * RETIRED Are you deaf or do you have serious difficulty hearing Answer Date of Assessment Author Status No 08/09/2018 10:07 AM TANK CARPENTER Acti ve * RETIRED Are you blind or do you have serious difficulty seeing, even when wearing glasses? Answer Date of Assessment Author Status No 08/09/2018 10:07 AM ENEIDA Acti ve * Do you have serious [...] filedocumented in this encounter Additional Health Concerns Assessment Noted Time PHQ-9 Depression Total Score: 0 10/29/19 22 1:53 PM CDT documented as of this encounter Care Teams Computing Services Director Relationship Specialty Start Date End Date Noam Acevedo MD [address] [place] [address] PCP - General 03/11/17 documented as of this encounter
--- OUTSIDE RECORDS SUMMARY | 2024-11-05 01:13 | XMS_ITS | Encounter Summary ---
Author Organization [facility] Care Team Providers Care Airline Dispatcher Name Role Phone Noam Acevedo MD Primary Care Provider [phone] Shana Rogers MD, Sharif Spencer Primary Care Provide r Mehran Colon MD Unavailable [phone] Encounter Details Date Type Department Care Team (Latest Contact Info) Description 10/06/2018 Orders Only [facility] CLINCONV ProviderTanya MD [address] [place] [address] Social History Tobacco Use Types Packs/Day Years Used Date Smoking Tobacco: Never Assessed Sex and Gender Information Value Date Recorded Sex Assigned at Not on file Legal Sex Male 1:17 PM HAND SPLITTER Gender Identity Not on file Sexual Orientation Not on file documented as of this encounter Plan of Treatment Not on file documented as of this encounter Procedures Procedure Name Priority Date/Time Associated Diagnosis Comments CARDIOLOGY REPORT 10/18/2018 12: 00 AM HAND SPLITTER CARDIOLOGY REPORT 10/11/2018 12: 00 AM HAND SPLITTER documented in this encounter Results * CARDIOLOGY REPORT (10/18/2018 12:00 AM HAND SPLITTER) Anatomical Region Laterality Modality Other Narrative 10/18/2018 12:00 AM HAND SPLITTER Ordered by an unspecified provider. Historical Provider [facility] MICA[facility]A OLIVARES Final Result * CARDIOLOGY REPORT (10/11/2018 12:00 AM HAND SPLITTER) Anatomical Region Laterality Modality Other Narrative 10/11/2018 12:00 AM HAND SPLITTER Ordered by an unspecified provider. us Historical Provider [facility] MICAELA OLIVARES Final Result documented in this encounter Visit Diagnoses Not on filedocumented in this encounter Care Teams Airline Dispatcher Relationship Specialty Start Date End Date Noam Acevedo MD [address] [facility] [address] [place], [place] [address] PCP - General 10/06/18 10/05/22 Sharif Saldana Jr., MD [address] [place] [address] [address] [place], [place] [phone] PCP - General Internal Medicine 10/06/22 Mehran Colon MD [address] [place] [address] Referring Physician Gastroenterology 10/06/22 documented as of this encounter
--- OUTSIDE RECORDS SUMMARY | 2024-11-05 01:13 | XMS_ITS | Encounter Summary ---
Author Organization [facility] Care Team Providers Care Crew Leader Name Role Phone Noam Acevedo MD Primary Care Provider [phone] Shana Rogers MD, Sharif Spencer Primary Care Provide r Mehran Colon MD Unavailable [phone] Encounter Details Date Type Department Care Team (Latest Contact Info) Description 10/12/2018 Orders Only [facility] CLINCONV ProviderTanya MD [address] [place] [address] Social History Tobacco Use Types Packs/Day Years Used Date Smoking Tobacco: Never Assessed Sex and Gender Information Value Date Recorded Sex Assigned at Not on file Legal Sex Male 1:17 PM CORPORATE TRAINER Gender Identity Not on file Sexual Orientation Not on file documented as of this encounter Plan of Treatment Not on file documented as of this encounter Procedures Procedure Name Priority Date/Time Associated Diagnosis Comments PROCEDURE - RESULT 10/22/2018 12 :00 AM CORPORATE TRAINER documented in this encounter Results * PROCEDURE - RESULT (10/22/2018 12:00 AM CORPORATE TRAINER) Narrative 10/22/2018 12:00 AM CORPORATE TRAINER Ordered by an unspecified provider. Historical Provider Final Res ult documented in this encounter Visit Diagnoses Not on filedocumented in this encounter Care Teams Crew Leader Relationship Specialty Start Date End Date Noam Acevedo MD [address] [facility] [address] [place], [place] [address] PCP - General 10/06/18 10/05/22 Sharif Saldana Jr., MD [address] [place] [address] PCP - General Internal Medicine 10/06/22 Mehran Colon MD [address] [place] [address] Referring Physician Gastroenterology 10/06/22 documented as of this encounter
--- OUTSIDE RECORDS SUMMARY | 2024-11-05 01:14 | XMS_ITS | Encounter Summary ---
Author Organization [facility] Care Team Providers Care Construction Rep Name Role Phone Noam Acevedo MD Primary Care Provider [phone]- [phone] Shana Rogers MD, Sharif [place] Primary Care Provide r Mehran Colon MD Unavailable [phone] Encounter Details Date Type Department Care Team (Latest Contact Info) Description 08/08/2018 Orders Only [facility] CLINCONV ProviderTanya MD [address] [place] [address] Social History Tobacco Use Types Packs/Day Years Used Date Smoking Tobacco: Never Assessed Sex and Gender Information Value Date Recorded Sex Assigned at Not on file Legal Sex Male 1:17 PM REPORT DEVELOPER Gender Identity Not on file Sexual Orientation Not on file documented as of this encounter Plan of Treatment Not on file documented as of this encounter Procedures Procedure Name Priority Date/Time Associated Diagnosis Comments CARDIOLOGY REPORT 09/06/2018 12: 00 AM REPORT DEVELOPER documented in this encounter Results * CARDIOLOGY REPORT (09/06/2018 12:00 AM REPORT DEVELOPER) Anatomical Region Laterality Modality Other Narrative 09/06/2018 12:00 AM REPORT DEVELOPER Ordered by an unspecified provider. Historical Provider [facility] MICAELA OLIVARES Final Result documented in this encounter Visit Diagnoses Not on filedocumented in this encounter Care Teams Construction Rep Relationship Specialty Start Date End Date Noam Acevedo MD [address] [facility] [address] [place] [address] PCP - General 10/06/18 10/05/22 Sharif Saldana Jr., MD [address] [place] [address] PCP - General Internal Medicine 10/06/22 Mehran Colon MD [address] [place] [address] Referring Physician Gastroenterology 10/06/22 documented as of this encounter
[2024-11-05] MEDS: dexAMETHasone SOD PHOS INJ 10 MG/ML 1 ML VIAL 6 MG IV PUSH (01:52)
[2024-11-05 01:55] LABS: Reflex Lactic Acid Yes or No Add Lactic
[2024-11-05] MEDS: cefTRIAXone 2 GM/NS 100 ML 2 GM/100 ML BAG IVPB (01:58)
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
[2024-11-05] MEDS: SODIUM CHLORIDE 0.9% IV 1,000 ML 125 ML IV CONT ×2 (03:06→05:32)
[2024-11-05] MEDS: AZITHROMYCIN 500 MG/NS 250 ML 500 MG/250 ML BAG 250 MG IVPB (03:06)
[2024-11-05] MEDS: REMDESIVIR 200 MG/NS 250 ML 200 MG/250 ML BAG 250 MG IVPB (04:26)
[2024-11-05] MEDS: TOCILIZUMAB 800 MG in SODIUM CHLORIDE 0.9% IV 60 ML 100 MG IVPB (04:27)
[2024-11-05] MEDS: VANCOMYCIN 1,250 MG/NS 250 ML 1,250 MG/250 ML BAG 166.67 MG IVPB ×2 (04:30→05:29)
[2024-11-05 04:46] LABS: Vancomycin Trough < 5.0 ug/mL (10.0-20.0)
[2024-11-05 04:50] LABS: Troponin I 0.277 ng/mL (0.000-0.034)
--- NOTE | 2024-11-05 05:05 | ADMGEN ---
This patient, Renaldo Whitaker, was admitted to Intensive Care Unit-8 at 0340. Patient/family oriented to hospital policies and general routines including ID bracelet, bed and alarms, visiting hours, pain management, procedures, bathroom and other care routines, personal items, smoking policy, room service/diet, and visiting hours. Information on how to activate the Rapid Response Team has been discussed. Patient/Family are encouraged to report perceived risks to care and to ask questions if they do not understand what they are told or what they should do.
[2024-11-05 05:50] LABS: Base Excess ABG -3.7 mEq/l (+/-2.0); Carboxyhemoglobin 0.6 % THb (0-2.0); Fractional Inspired Oxygen 30 %; HCO3 ABG 19.8 mEq/l (22.0-26.0); Methemoglobin ABG 0.1 %THb (0-1.5); Oxygen Content ABG 22.2 %vol (16.0-22.0); Oxygen Saturation ABG 97.3 % (95.0-100.0); Oxyhemoglobin 96.8 % THb (90.0-100.0); PCO2 ABG 32.1 mmHg (35.0-45.0); PO2 ABG 94.2 mmHg (80.0-100.0); PO2 FiO2 Ratio Arterial Blood 3.14 %; Reduced Hemoglobin 2.5 %THb (0-5.0); Total Hemoglobin 16.3 g/dL (12.0-18.0); pH ABG 7.408 (7.350-7.450)
[2024-11-05 05:51] LABS: Arterial Blood Gas PEEP 5 cmH2O; Arterial Blood Gas Tidal Volume 500 ml; Arterial Blood Gas Vent Mode CMV; Arterial Blood Gas Ventilator rate 18 /MIN; Device VENTILATOR; Modified Allen's Test Unable to perform; Site Drawn RIGHT RADIAL
[2024-11-05 07:44] LABS: Basophils Percent Auto 0.3 % (0.2-1.2); Eosinophils Percent Auto 0.1 % (0-4.4); Hematocrit 44.5 % (42.0-52.0); Hemoglobin 15.5 g/dL (14.0-18.0); Immature Granulocyte Absolute 0.05 K/mm3 (0.00-0.031); Immature Granulocyte Percent A 0.5 % (0-0.5); Lymphocytes Absolute Auto 0.58 K/mm3 (0.9-3.2); Lymphocytes Percent Auto 5.7 % (18.3-44.2); Mean Corpuscular HGB Conc 34.8 g/dl (32-36); Mean Corpuscular Hemoglobin 33.2 pg (26-34); Mean Corpuscular Volume 95.3 fl (80-100); Mean Platelet Volume 11.5 fl (7.4-10.4); Monocytes Absolute Auto 0.9 K/mm3 (0.1-0.6); Monocytes Percent Auto 8.4 % (2.6-8.5); Neutrophils Absolute Auto 8.7 K/mm3 (1.3-6.7); Platelet Count Result 184 k/mm3 (150-375); Red Blood Count 4.67 M/mm3 (4.6-6.20); Red Cell Distribution Width 12.1 % (11.5-14.5); White Blood Count 10.2 K/mm3 (4.5-10.0)
[2024-11-05] MEDS: ALBUTEROL SULFATE NEB 2.5 MG/3 ML INH INHALATION (07:57)
[2024-11-05 08:34] LABS: Alanine Aminotransferase 41 U/L (6-50); Albumin Level 3.7 g/dL (3.5-5.1); Alkaline Phosphatase 73 U/L (38-126); Anion Gap 12 mmol/L (4-12); Aspartate Amino Transferase 40 U/L (17-59); Bilirubin,Total 0.6 mg/dL (0.2-1.3); Blood Urea Nitrogen 13 mg/dL (9-20); CRP 3.4 mg/dL (<1.0); Calcium 8.5 mg/dL (8.4-10.2); Carbon Dioxide 20 mmol/L (22-30); Chloride 106 mmol/L (98-107); Estimated CRCL calculation 59 ml/min; Estimated Glomerular Filt Rate > 60; Glucose 151 mg/dL (65-110); Lactate Dehydrogenase 296 U/L (120-246); Magnesium 1.8 mg/dL (1.6-2.3); Potassium 4.6 mmol/L (3.4-5.0); Sodium 138 mmol/L (137-145)
[2024-11-05 08:55] LABS: MRSA (PCR) NOT DETECTED (NOT DETECTE)
[2024-11-05 09:08] LABS: Lactic Acid Reflex 1.8 mmol/L (0.7-2.0)
[2024-11-05 09:09] LABS: Troponin I 0.406 ng/mL (0.000-0.034)
[2024-11-05] MEDS: PANTOPRAZOLE SODIUM IV 40 MG VIAL IV PUSH (09:37)
[2024-11-05] MEDS: ENOXAPARIN 40 MG/0.4 ML SYRINGE SUB-Q (09:38)
--- NOTE | 2024-11-05 10:50 | ECG_ITS ---
Test Date: 2024-11-05 12:39:41 Measurements Intervals [place] Rate: 73 P: 51 LA: 166 QRS: -5 QRSD: 94 T: 46 QT: 434 QTc: 481 Interpretive Statements SINUS RHYTHM SEPTAL MYOCARDIAL INFARCTION , PROBABLY OLD [40+ ms Q WAVE IN V1/V2] MODERATE T-WAVE ABNORMALITY, CONSIDER LATERAL ISCHEMIA [-0.1+ mV T-WAVE IN I/aVL/V5/V6] Compared to ECG 11/04/2024 23:34:53 TACHYCARDIA NO LONGER PRESENT LEFT BUNDLE BRANCH BLOCK NO LONGER PRESENT Electronically Signed On 11-05-2024 17:40:13 CDT by Jose Luis Yeager M.D.
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
[2024-11-05] MEDS: MINERAL OIL/WHITE PETROLATUM OINTMENT 1 APPLIC EACH EYE ×2 (12:39→22:21)
[2024-11-05] MEDS: IPRATROPIUM 0.5 MG/ALBUTEROL SULFATE 2.5 MG AMPUL.NEB 3 ML INHALATION ×2 (14:49→21:53)
[2024-11-05] MEDS: VANCOMYCIN 1,500 MG/NS 500 ML 1,500 MG/500 ML BAG 250 MG IVPB (22:21)
[2024-11-06] VITALS (43 sets, daily range): BP systolic 109–166; BP diastolic 55–89; PULSE 62–115; RESP 13–22; TEMP 36.6–37.4; O2SAT 93–100
[2024-11-06] MEDS: cefTRIAXone 2 GM/NS 100 ML 2 GM/100 ML BAG IVPB (02:03)
[2024-11-06] MEDS: IPRATROPIUM 0.5 MG/ALBUTEROL SULFATE 2.5 MG AMPUL.NEB 3 ML INHALATION ×4 (02:50→20:19)
[2024-11-06] MEDS: AZITHROMYCIN 500 MG/NS 250 ML 500 MG/250 ML BAG 250 MG IVPB (02:54)
[2024-11-06 04:44] LABS: Basophils Percent Auto 0.1 % (0.2-1.2); Eosinophils Percent Auto 0.1 % (0-4.4); Hematocrit 40.2 % (42.0-52.0); Hemoglobin 13.8 g/dL (14.0-18.0); Immature Granulocyte Absolute 0.03 K/mm3 (0.00-0.031); Immature Granulocyte Percent A 0.4 % (0-0.5); Lymphocytes Absolute Auto 0.62 K/mm3 (0.9-3.2); Lymphocytes Percent Auto 9.2 % (18.3-44.2); Mean Corpuscular HGB Conc 34.3 g/dl (32-36); Mean Corpuscular Hemoglobin 33.6 pg (26-34); Mean Corpuscular Volume 97.8 fl (80-100); Mean Platelet Volume 10.4 fl (7.4-10.4); Monocytes Absolute Auto 0.5 K/mm3 (0.1-0.6); Monocytes Percent Auto 7.9 % (2.6-8.5); Neutrophils Absolute Auto 5.5 K/mm3 (1.3-6.7); Neutrophils Percent Auto 82.3 % (45.5-73.1); Platelet Count Result 146 k/mm3 (150-375); Red Blood Count 4.11 M/mm3 (4.6-6.20); Red Cell Distribution Width 12.1 % (11.5-14.5); White Blood Count 6.7 K/mm3 (4.5-10.0)
[2024-11-06 04:59] LABS: Alanine Aminotransferase 31 U/L (6-50); Albumin Level 3.4 g/dL (3.5-5.1); Alkaline Phosphatase 48 U/L (38-126); Anion Gap 12 mmol/L (4-12); Aspartate Amino Transferase 29 U/L (17-59); Bilirubin,Total 0.3 mg/dL (0.2-1.3); Blood Urea Nitrogen 22 mg/dL (9-20); Calcium 8.2 mg/dL (8.4-10.2); Carbon Dioxide 19 mmol/L (22-30); Chloride 106 mmol/L (98-107); Estimated CRCL calculation 56 ml/min; Estimated Glomerular Filt Rate > 60; Glucose 133 mg/dL (65-110); Phosphorus 2.5 mg/dL (2.5-4.5); Sodium 137 mmol/L (137-145)
[2024-11-06 05:01] LABS: Lactic Acid Reflex 2.6 mmol/L (0.7-2.0)
[2024-11-06] MEDS: MIDAZOLAM 100MG/NS 100ML(*CRX) 100 MG/100 ML BAG IV CONT (05:53)
[2024-11-06 06:02] LABS: Alveolar/Arterial O2 Gradient 75.5 mmHg; Base Excess ABG -2.2 mEq/l (+/-2.0); Carboxyhemoglobin 0.5 % THb (0-2.0); Fractional Inspired Oxygen 30 %; Oxygen Saturation ABG 97.8 % (95.0-100.0); Oxyhemoglobin 97.5 % THb (90.0-100.0); PCO2 ABG 31.9 mmHg (35.0-45.0); PO2 ABG 100.9 mmHg (80.0-100.0); PO2 FiO2 Ratio Arterial Blood 3.36 %; Total Hemoglobin 14.5 g/dL (12.0-18.0); pH ABG 7.436 (7.350-7.450)
[2024-11-06 06:05] LABS: Arterial Blood Gas PEEP 5 cmH2O; Arterial Blood Gas Tidal Volume 500 ml; Arterial Blood Gas Vent Mode CMV; Arterial Blood Gas Ventilator rate 16 /MIN; Device VENTILATOR; Modified Allen's Test Pass; Site Drawn RIGHT RADIAL
[2024-11-06 06:29] LABS: Prostate Specific Antigen 5.5 ng/mL (< OR = 4.0)
[2024-11-06 06:42] LABS: Reflex Lactic Acid Yes or No Add Lactic
[2024-11-06 07:13] LABS: Lactic Acid 2.2 mmol/L (0.7-2.0)
[2024-11-06] MEDS: ASPIRIN 81 MG CHEWABLE TABLET PO (08:46)
[2024-11-06] MEDS: ATORVASTATIN 40 MG TABLET PO (08:46)
[2024-11-06] MEDS: dexAMETHasone SOD PHOS INJ 10 MG/ML 1 ML VIAL 6 MG IV PUSH (08:46)
[2024-11-06] MEDS: PANTOPRAZOLE SODIUM IV 40 MG VIAL IV PUSH (08:46)
[2024-11-06] MEDS: MINERAL OIL/WHITE PETROLATUM OINTMENT 1 APPLIC EACH EYE (08:47)
[2024-11-06] MEDS: ENOXAPARIN 40 MG/0.4 ML SYRINGE SUB-Q (08:47)
--- NOTE | 2024-11-06 09:46 | P.PNINT_ITS ---
Progress Note: A&P Assessment and Plan (1) Acute respiratory failure with hypoxia: Code(s): J96.01 - Acute respiratory failure with hypoxia Status: Acute Assessment and Plan: Acute respiratory failure status post fall/syncope, agonal breathing, initially i-Gel (supraglottic airway) was inserted 11/05:Patient was intubated in the ER -remains on CMV mode of ventilation, peep of 5, 30% FiO2 - chest x-ray and CT chest abdomen pelvis showed extensive patchy airspace consolidation consistent with pneumonia -SARS-CoV-2 PCR was positive -continue bronchodilators -chest x-ray this morning showed bilateral infiltrates in the right lower lobe and left lower lobe. ETT and appropriate position, -ABGs reviewed -sedated with fentanyl and Versed infusion, maintain RASS of 0 to -2, daily SBT and SAT 11/05: CT chest abdomen and pelvis 1. Extensive patchy airspace consolidation, consistent with pneumonia. 2: Sclerotic lesion left femoral head, most likely benign bone island, although in the presence of enlarged prostate gland, metastatic disease secondary to prostate cancer should be considered. (2) COVID-19: Code(s): U07.1 - COVID-19 Status: Acute Assessment and Plan: Patient tested positive for SARS-CoV-2 PCR PCR -pneumonia could be related to that or bacterial pneumonia -patient received a dose of tocilizumab in the ER -continue dexamethasone remdesivir (3) Pneumonia: Code(s): J18.9 - Pneumonia, unspecified organism Status: Acute Assessment and Plan: Extensive pneumonia seen on CT chest as above - continue azithromycin, ceftriaxone and vancomycin (11/05) -MRSA screen is negative -11/05: blood cultures negative x2 for -11/05: Sputum cultures obtained and (4) Elevated troponin: Code(s): R79.89 - Other specified abnormal findings of blood chemistry Status: Acute Assessment and Plan: Elevated troponins, initial EKG showed possible atrial flutter, LBBB -appreciate cardiology evaluation and recommendations, -continue aspirin and statin -elevated troponin could be related to type 2 infarct secondary to pneumonia, CAD, arrhythmias which could be related to syncopal episode, -ischemic evaluation depending on clinical course 11/05/2024: Echocardiogram Summary 1. Left ventricular chamber dimension is normal. 2. There is mildly increased left ventricular wall thickness. 3. Left ventricular systolic function is moderately reduced, estimated at 30-35%. 4. Global hypokinesis with more pronounced hypokinesis of the anteroseptum, mid inferoseptum, apex. 5. The left ventricular diastolic function is grade I diastolic dysfunction. 6. Right ventricular systolic function is normal. 7. Left atrial chamber dimension is moderately enlarged. 8. No significant valvular disease. (5) Syncope: Code(s): R55 - Syncope and collapse Status: Acute Assessment and Plan: Patient presented with fall could be related to syncope secondary to hypoxia, a cardiac arrhythmias as when patient arrived he was possible in atrial flutter, tachycardic -elevated troponins, could be related to coronary artery disease/type 2 infarct -echocardiogram as above -will obtain carotid Doppler 11/05:CT head on admission: No acute intracranial abnormality. 11/05: CT cervical spine/facial bones on admission: 1. No acute abnormality of the facial bones or cervical spine.2: Severe cervical spondylosis.3: Patchy upper lobe infiltrates, consistent with pneumonia. (6) Essential hypertension: Code(s): I10 - Essential (primary) hypertension Status: Acute Assessment and Plan: P.r.n. hydralazine (7) Hyperlipidemia: Code(s): E78.5 - Hyperlipidemia, unspecified Status: Acute Assessment and Plan: Continue atorvastatin Plan DVT prophylaxis: Enoxaparin Stress ulcer prophylaxis: Protonix Nutrition: Tolerating tube feeds Code Status: Full code Critical Care Time Spent: 33 minutes Due to a high probability of clinically significant, life threatening deterioration, the patient required my highest level of preparedness to intervene emergently and I personally spent this critical care time directly and personally managing the patient. This critical care time included obtaining a history; examining the patient; pulse oximetry; ordering and review of studies; arranging urgent treatment with development of a management plan; evaluation of patient's response to treatment; frequent reassessment; and discussions with other providers. It was exclusive of separately billable procedures and treating other patients and teaching time. Please see Assessment and Plan section and the rest of the note for further information on patient assessment and treatment This dictation may have been done utilizing a voice recognition system. Attempts have been made to correct errors. However, there may be uncorrected grammatical, spelling, and recognitions errors present. Subjective Date/time seen: 11/06/24 09:46 Interval history: Reason for consult: Fall, acute respiratory failure, syncope, COVID-19 pneumonia 11/06/2024: Patient seen and examined in the CCU, remains intubated on CMV mode of ventilation, peep of 5, 30% FiO2. Sedated with fentanyl and Versed infusion, opens his eyes, follows simple commands in all extremities. Nods to questions. Is afebrile, urine output has been adequate, hemodynamically stable. White count has normalized. Lactic acid 2.2 this morning. Tolerating tube feeds Review of Systems Review of Systems: ROS unobtainable: Yes unobtainable due to endotracheal tube and unobtainable due to medical condition Exam Narrative: General: In intubated and sedated, in no acute distress HEENT:? Pupils equal and reactive, sclera is clear, ETT in place Neck:? Cervical collar in place Respiratory:? velcro rales bilaterally, coarse breath sounds at bases, decreased air entry at bases with no wheezing Cardiac:? S1-S2 is normal, regular rate and rhythm, no murmurs Abdomen:? Soft, nontender, nondistended, normoactive bowel sounds Extremities:? No edema, palpable pedal pulses Neuro:? Patient is intubated, sedated, opens his eyes and follows simple commands in all extremities, nods to questions Skin:? No skin lesions noted Psych:? Unable to assess at this time Objective Data Vital Signs Vital Signs: Vital Signs - 24 hr 11/05/24 10:00 11/05/24 10:00 11/05/24 10:00 Temperature 100.2 F H Pulse Rate 98 97 97 Respiratory Rate 18 19 19 Blood Pressure 164/99 H Pulse Oximetry 99 Oxygen Delivery Fraction of Inspired Oxygen 11/05/24 10:00 11/05/24 11:37 11/05/24 12:00 Temperature Pulse Rate 97 78 76 Respiratory Rate 16 Blood Pressure Pulse Oximetry 98 Oxygen Delivery Mechanical Ventilation Fraction of Inspired Oxygen 30 11/05/24 12:00 11/05/24 12:00 11/05/24 12:00 Temperature Pulse Rate 76 76 Respiratory Rate 16 16 Blood Pressure Pulse Oximetry 97 Oxygen Delivery Mechanical Ventilation Fraction of Inspired Oxygen 30 30 11/05/24 12:00 11/05/24 12:00 11/05/24 14:00 Temperature 99.8 F H 99.4 F Pulse Rate 75 76 73 Respiratory Rate 16 16 Blood Pressure 119/72 124/96 H Pulse Oximetry 97 97 Oxygen Delivery Fraction of Inspired Oxygen 11/05/24 14:00 11/05/24 14:00 11/05/24 14:00 Temperature Pulse Rate 73 73 74 Respiratory Rate 16 16 Blood Pressure Pulse Oximetry Oxygen Delivery Fraction of Inspired Oxygen 11/05/24 14:49 11/05/24 14:49 11/05/24 15:07 Temperature Pulse Rate 72 72 76 Respiratory Rate 16 16 Blood Pressure Pulse Oximetry 98 Oxygen Delivery Mechanical Ventilation Fraction of Inspired Oxygen 30 11/05/24 16:00 11/05/24 16:00 11/05/24 16:00 Temperature 99.0 F Pulse Rate 78 78 Respiratory Rate 16 16 Blood Pressure 134/76 Pulse Oximetry 97 97 Oxygen Delivery Mechanical Ventilation Fraction of Inspired Oxygen 30 30 11/05/24 16:00 11/05/24 16:00 11/05/24 16:00 Temperature Pulse Rate 78 78 77 Respiratory Rate 16 16 Blood Pressure Pulse Oximetry Oxygen Delivery Fraction of Inspired Oxygen 11/05/24 16:08 11/05/24 18:00 11/05/24 18:00 Temperature 99.7 F H Pulse Rate 76 80 80 Respiratory Rate 16 Blood Pressure 127/45 L Pulse Oximetry 97 98 Oxygen Delivery Mechanical Ventilation Fraction of Inspired Oxygen 30 11/05/24 18:00 11/05/24 18:19 11/05/24 20:00 Temperature Pulse Rate 80 80 75 Respiratory Rate 16 16 Blood Pressure Pulse Oximetry Oxygen Delivery Fraction of Inspired Oxygen 11/05/24 20:00 11/05/24 20:00 11/05/24 20:00 Temperature 99.2 F Pulse Rate 74 74 74 Respiratory Rate 16 16 16 Blood Pressure 135/79 Pulse Oximetry 97 Oxygen Delivery Fraction of Inspired Oxygen 11/05/24 21:54 11/05/24 21:57 11/05/24 22:00 Temperature Pulse Rate 71 74 74 Respiratory Rate 14 16 Blood Pressure Pulse Oximetry 98 98 Oxygen Delivery Mechanical Ventilation Mechanical Ventilation Fraction of Inspired Oxygen 30 30 11/05/24 22:00 11/05/24 22:00 11/05/24 22:00 Temperature 98.8 F Pulse Rate 74 74 Respiratory Rate 16 Blood Pressure 137/79 Pulse Oximetry 98 Oxygen Delivery Fraction of Inspired Oxygen 30 11/05/24 22:00 11/05/24 22:00 11/05/24 23:54 Temperature Pulse Rate 74 74 74 Respiratory Rate 16 16 Blood Pressure Pulse Oximetry 98 Oxygen Delivery Mechanical Ventilation Fraction of Inspired Oxygen 30 11/06/24 00:00 11/06/24 00:00 11/06/24 00:00 Temperature 99.3 F Pulse Rate 71 74 76 Respiratory Rate 16 16 Blood Pressure 109/58 L Pulse Oximetry 96 Oxygen Delivery Fraction of Inspired Oxygen 11/06/24 00:00 11/06/24 00:00 11/06/24 00:20 Temperature Pulse Rate 76 76 Respiratory Rate 16 16 Blood Pressure Pulse Oximetry 96 Oxygen Delivery Mechanical Ventilation Fraction of Inspired Oxygen 30 30 11/06/24 02:00 11/06/24 02:00 11/06/24 02:00 Temperature 98.7 F Pulse Rate 68 68 68 Respiratory Rate 16 16 Blood Pressure 115/63 Pulse Oximetry 98 Oxygen Delivery Fraction of Inspired Oxygen 11/06/24 02:00 11/06/24 02:55 11/06/24 02:56 Temperature Pulse Rate 76 64 64 Respiratory Rate 16 17 Blood Pressure Pulse Oximetry 100 Oxygen Delivery Mechanical Ventilation Fraction of Inspired Oxygen 30 11/06/24 04:00 11/06/24 04:00 11/06/24 04:00 Temperature Pulse Rate 73 73 73 Respiratory Rate 16 16 16 Blood Pressure Pulse Oximetry 98 Oxygen Delivery Mechanical Ventilation Fraction of Inspired Oxygen 30 11/06/24 04:00 11/06/24 04:00 11/06/24 04:00 Temperature 99.1 F Pulse Rate 73 72 Respiratory Rate 16 Blood Pressure 124/60 Pulse Oximetry 98 Oxygen Delivery Fraction of Inspired Oxygen 30 11/06/24 05:49 11/06/24 05:53 11/06/24 06:00 Temperature Pulse Rate 68 67 67 Respiratory Rate 16 Blood Pressure Pulse Oximetry 95 Oxygen Delivery Mechanical Ventilation Fraction of Inspired Oxygen 30 11/06/24 06:00 11/06/24 06:00 11/06/24 06:37 Temperature 98.9 F Pulse Rate 67 67 67 Respiratory Rate 16 16 16 Blood Pressure 119/85 Pulse Oximetry 99 Oxygen Delivery Fraction of Inspired Oxygen 11/06/24 09:10 11/06/24 09:10 Temperature Pulse Rate 63 63 Respiratory Rate 16 Blood Pressure Pulse Oximetry 99 Oxygen Delivery Mechanical Ventilation Fraction of Inspired Oxygen 30 Intake/Output Intake/Output: Intake & Output 11/03/24 11/04/24 11/05/2425 23:59 23:59 23:59 23:59 Intake Total 2041.4 930.9 Output Total 1275 275 Balance 766.4 655.9 Meds/Results Medications: Active Medications Generic Name Dose Route Start Last Admin Trade Name Freq PRN Reason Stop Dose Admin Acetaminophen 650 mg 11/05/24 01:33 Acetaminophen 650 Mg Suppository RECTAL Q6H PRN Mild Pain (1-3) or Fever Albuterol/Ipratropium 3 ml 11/05/24 14:00 11/06/24 09:11 Ipratropium 0.5 Mg/Albuterol Sulfate 2.5 Mg Ampul.Neb 3 Ml INHALATION 3 ml Q6HRT MILLA Administration Aspirin 81 mg 11/06/24 08:00 11/06/24 08:46 Aspirin 81 Mg Chewable Tablet PO 81 mg DAILY@0800 MILLA Administration Atorvastatin Calcium 40 mg 11/06/24 09:00 11/06/24 08:46 Atorvastatin 40 Mg Tablet PO 40 mg DAILY IMLLA Administration Dexamethasone Sodium Phosphate 6 mg 11/05/24 01:25 11/06/24 08:46 Dexamethasone Sod Phos Inj 10 Mg/Ml 1 Ml Vial IV PUSH 11/14/24 09:01 6 mg DAILY MILLA Administration Enoxaparin Sodium 40 mg 11/05/24 09:00 11/06/24 08:47 Enoxaparin 40 Mg/0.4 Ml Syringe SUB-Q 40 mg DAILY MILLA Administration Hydralazine HCl 10 mg 11/05/24 10:47 Hydralazine Hcl 20 Mg/Ml Vial IV PUSH Q4H PRN Blood Pressure - High Ceftriaxone Sodium 2 gm in 100 mls @ 200 mls/hr 11/06/24 02:00 11/06/24 02:33 Rocephin 2 Gm/Ns 100 Ml IVPB Infused Q24H MILLA Infusion Remdesivir 100 mg in 250 mls @ 250 mls/hr 11/06/24 10:00 IVPB 11/09/24 10:59 Q24H MILLA Vancomycin HCl 1,500 mg in 500 mls @ 250 mls/hr 11/05/24 23:00 11/06/24 01:18 Vancomycin 1,500 Mg/Ns 500 Ml IVPB Infused Q18H MILLA Infusion Fentanyl Citrate 2,500 mcg in 250 mls @ 7.5 mls/hr 11/05/24 05:05 11/06/24 06:00 Fentanyl 2,500 Mcg/Ns 250 Ml IV CONT 75 mcg/hr .[id number] MILLA 7.5 mls/hr Titration Protocol 75 MCG/HR Azithromycin 500 mg in 250 mls @ 250 mls/hr 11/06/24 03:00 11/06/24 03:59 Zithromax IVPB Infused Q24H MILLA Infusion Midazolam HCl 100 mg in 100 mls @ 1 mls/hr 11/06/24 05:45 11/06/24 06:37 Versed 100 Mg/Ns 100 Ml IV CONT 4 mg/hr .Q72H MILLA 4 mls/hr Titration Protocol 1 MG/HR Multi-Ingred Cream/Lotion/Oil/Oint 1 applic 11/05/24 11:40 11/06/24 08:47 Mineral Oil/White Petrolatum Ointment EACH EYE 1 applic Q12HR MILLA Administration Ondansetron HCl 4 mg 11/05/24 01:33 Ondansetron Inj 4 Mg/2 Ml Vial IV PUSH Q4H PRN Nausea Pantoprazole Sodium 40 mg 11/05/24 09:00 11/06/24 08:46 Pantoprazole Sodium Iv 40 Mg Vial IV PUSH 40 mg QAM MILLA Administration Perflutren Lipid Microsphere 0 ml 11/05/24 04:48 Perflutren Lipid Microspheres 1.5 Ml Vial Diluted To 10 Ml Total Volume IV PUSH 11/08/24 04:49 ONCE PRN adequate visualization Protocol Radiology Results: ITS Impressions Chest/Abdomen/Pelvis CT 11/05/24 07:01 IMPRESSION: 1. Extensive patchy airspace consolidation, consistent with pneumonia. 2: Sclerotic lesion left femoral head, most likely benign bone island, although in the presence of enlarged prostate gland, metastatic disease secondary to prostate cancer should be considered. Head/Cervical Spine/Facial Bones CT 11/05/24 07:07 IMPRESSION: 1. No acute abnormality of the facial bones or cervical spine. 2: Severe cervical spondylosis. 3: Patchy upper lobe infiltrates, consistent with pneumonia. Head CT 11/05/24 07:11 IMPRESSION: 1. No acute intracranial abnormality. Abdomen X-Ray 11/05/24 07:19 IMPRESSION: 1: NG tube tip in the stomach. Chest X-Ray 11/06/24 06:26 IMPRESSION: Bilateral infiltrates, as detailed above. Supportive lines and tubes in good position. Labs Labs: Laboratory Results - last 24 hr 11/06/24 11/06/24 11/06/24 04:33 05:59 06:56 WBC 6.7 RBC 4.11 L Hgb 13.8 L Hct 40.2 L MCV 97.8 MCH 33.6 MCHC 34.3 RDW 12.1 Plt Count 146 L MPV 10.4 Immature Gran % (Auto) 0.4 Neut % (Auto) 82.3 H Lymph % (Auto) 9.2 L Millard % (Auto) 7.9 Eos % (Auto) 0.1 Baso % (Auto) 0.1 L Lymph # (Auto) 0.62 L Millard # (Auto) 0.5 Eos # (Auto) 0.0 Baso # (Auto) 0.0 Abs Immat Gran (auto) 0.03 Absolute Neuts (auto) 5.5 Absolute Nucleated RBC 0.000 Nucleated RBC % 0.0 Puncture Site Right radial ABG pH 7.436 ABG pCO2 31.9 L ABG pO2 100.9 H ABG PO2/FiO2 Ratio 3.36 ABG HCO3 21.0 L ABG O2 Saturation 97.8 ABG O2 Content 20.0 ABG Base Excess -2.2 A-a Gradient 75.5 Oxyhemoglobin 97.5 Carboxyhemoglobin 0.5 Methemoglobin 0.0 Reduced Hemoglobin 2.0 Total Hemoglobin 14.5 O2 Delivery Device Ventilator O2 Liters/Min Not Reportable Minute Volume Not Reportable Vent Rate 16 Vent Mode Cmv FiO2 30 Tidal Volume 500 PEEP 5 Peak Inspir Pressure Not Reportable Pressure Support Not Reportable Sodium 137 Potassium 4.0 Chloride 106 Carbon Dioxide 19 L Anion Gap 12 BUN 22 H Creatinine 1.13 Estim Creat Clear Calc 56 Estimated GFR > 60 Glucose 133 H Lactic Acid 2.6 H 2.2 H Calcium 8.2 L Phosphorus 2.5 Magnesium 2.0 Total Bilirubin 0.3 AST 29 ALT 31 Alkaline Phosphatase 48 Total Protein 6.0 L Albumin 3.4 L Prostate Specific Ag 5.5 H Quality VTE Prophylaxis VTE prophylaxis: pharmacologic ordered
--- NOTE | 2024-11-06 10:33 | PM.PNCARD ---
Progress Note: A&P Assessment and Plan (1) Elevated troponin: Code(s): R79.89 - Other specified abnormal findings of blood chemistry Status: Acute Plan 1. Elevated troponin level 2. Intermittent LBBB 3. Acute hypoxic respiratory failure requiring mechanical ventilation 4. Syncopal episode 5. COVID pneumonia 6. Heart failure with reduced LVEF of 30-35% per TTE 11/05 PLAN: -Elevated troponins probably due to demand ischemia in setting of acute hypoxic respiratory failure, COVID pneumonia. However, echo shows LVEF 30-35%, global hypokinesis with more pronounced hypokinesis of the anteroseptum, mid inferoseptum, apex. Given these findings, will plan for ischemic evaluation once he has recovered more. -Continue ASA 81mg once daily and high intensity statin. -Given reduced LVEF, will plan to start heart failure GDMT once he has recovered more. -EKG on admission shows heart rate of 140bpm, possibly fast sinus, cannot rule out atrial flutter, LBBB. Telemetry since admission shows sinus rhythm with narrow QRS. Continue to monitor on tele. Given syncopal event prior to admission, recommend 30 day event monitor at time of discharge. Recommendations and plan discussed with ICU Physician. Subjective Date/time seen: 11/06/24 10:33 Interval history: Reason for visit: Elevated troponin HPI: We are consulted for elevated troponin. Unable to obtain any history from the patient as he is intubated and sedated, therefore, history obtained from the medical chart and medical team; no family at bedside to provide history. Renaldo is a 74 year old male with hyperlipidemia and GERD who presented to [facility] after he was found unresponsive after a fall. Reportedly had fever, aches, cough, shortness of breath with exertion over past couple of days, along with poor appetite. heard a thud and found him on the floor. He was still breathing, but unresponsive. Upon EMS arrival, he had agonal respirations, and a supraglottic airway was inserted. EKG on admission shows heart rate of 140bpm, possibly fast sinus, cannot rule out atrial flutter, LBBB. Telemetry since admission shows sinus rhythm with narrow QRS. Initial troponin negative, increased to 0.406. NT pro BNP mildly elevated at 372. COVID positive. Chest CT shows extensive patchy airspace consolidation, consistent with pneumonia. Date of service 11/06: Remains intubated. Tele with occasional PVCs, no recurrence of LBBB. Review of Systems Review of Systems: ROS unobtainable: Yes unobtainable due to endotracheal tube and unobtainable due to medical condition Exam Const: Other: Ill appearing male, intubated/sedated HENMT: Other: OETT in place Resp: Other: On mechanical ventilation. Cardio: Rate: regular rate Rhythm: regular rhythm Heart sounds: no murmurs Neuro: Other: Sedated Objective Data Vital Signs Vital Signs: Vital Signs - 24 hr 11/05/24 11:37 11/05/24 12:00 11/05/24 12:00 Temperature Pulse Rate 78 76 76 Respiratory Rate 16 16 Blood Pressure Pulse Oximetry 98 Oxygen Delivery Mechanical Ventilation Fraction of Inspired Oxygen 30 11/05/24 12:00 11/05/24 12:00 11/05/24 12:00 Temperature Pulse Rate 76 75 Respiratory Rate 16 Blood Pressure Pulse Oximetry 97 Oxygen Delivery Mechanical Ventilation Fraction of Inspired Oxygen 30 30 11/05/24 12:00 11/05/24 14:00 11/05/24 14:00 Temperature 37.7 C H 37.4 C Pulse Rate 76 73 73 Respiratory Rate 16 16 16 Blood Pressure 119/72 124/96 H Pulse Oximetry 97 97 Oxygen Delivery Fraction of Inspired Oxygen 11/05/24 14:00 11/05/24 14:00 11/05/24 14:49 Temperature Pulse Rate 73 74 72 Respiratory Rate 16 Blood Pressure Pulse Oximetry 98 Oxygen Delivery Mechanical Ventilation Fraction of Inspired Oxygen 30 11/05/24 14:49 11/05/24 15:07 11/05/24 16:00 Temperature Pulse Rate 72 76 78 Respiratory Rate 16 16 16 Blood Pressure Pulse Oximetry 97 Oxygen Delivery Mechanical Ventilation Fraction of Inspired Oxygen 30 11/05/24 16:00 11/05/24 16:00 11/05/24 16:00 Temperature 37.2 C Pulse Rate 78 78 Respiratory Rate 16 16 Blood Pressure 134/76 Pulse Oximetry 97 Oxygen Delivery Fraction of Inspired Oxygen 30 11/05/24 16:00 11/05/24 16:00 11/05/24 16:08 Temperature Pulse Rate 78 77 76 Respiratory Rate 16 Blood Pressure Pulse Oximetry 97 Oxygen Delivery Mechanical Ventilation Fraction of Inspired Oxygen 30 11/05/24 18:00 11/05/24 18:00 11/05/24 18:00 Temperature 37.6 C H Pulse Rate 80 80 80 Respiratory Rate 16 16 Blood Pressure 127/45 L Pulse Oximetry 98 Oxygen Delivery Fraction of Inspired Oxygen 11/05/24 18:19 11/05/24 20:00 11/05/24 20:00 Temperature 37.3 C Pulse Rate 80 75 74 Respiratory Rate 16 16 Blood Pressure 135/79 Pulse Oximetry 97 Oxygen Delivery Fraction of Inspired Oxygen 11/05/24 20:00 11/05/24 20:00 11/05/24 21:54 Temperature Pulse Rate 74 74 71 Respiratory Rate 16 16 14 Blood Pressure Pulse Oximetry Oxygen Delivery Fraction of Inspired Oxygen 11/05/24 21:57 11/05/24 22:00 11/05/24 22:00 Temperature Pulse Rate 74 74 74 Respiratory Rate 16 Blood Pressure Pulse Oximetry 98 98 Oxygen Delivery Mechanical Ventilation Mechanical Ventilation Fraction of Inspired Oxygen 30 30 11/05/24 22:00 11/05/24 22:00 11/05/24 22:00 Temperature 37.1 C Pulse Rate 74 74 Respiratory Rate 16 16 Blood Pressure 137/79 Pulse Oximetry 98 Oxygen Delivery Fraction of Inspired Oxygen 30 11/05/24 22:00 11/05/24 23:54 11/06/24 00:00 Temperature Pulse Rate 74 74 71 Respiratory Rate 16 Blood Pressure Pulse Oximetry 98 Oxygen Delivery Mechanical Ventilation Fraction of Inspired Oxygen 30 11/06/24 00:00 11/06/24 00:00 11/06/24 00:00 Temperature 37.4 C Pulse Rate 74 76 76 Respiratory Rate 16 16 16 Blood Pressure 109/58 L Pulse Oximetry 96 Oxygen Delivery Fraction of Inspired Oxygen 11/06/24 00:00 11/06/24 00:20 11/06/24 02:00 Temperature Pulse Rate 76 68 Respiratory Rate 16 Blood Pressure Pulse Oximetry 96 Oxygen Delivery Mechanical Ventilation Fraction of Inspired Oxygen 30 30 11/06/24 02:00 11/06/24 02:00 11/06/24 02:00 Temperature 37.1 C Pulse Rate 68 68 76 Respiratory Rate 16 16 16 Blood Pressure 115/63 Pulse Oximetry 98 Oxygen Delivery Fraction of Inspired Oxygen 11/06/24 02:55 11/06/24 02:56 11/06/24 04:00 Temperature Pulse Rate 64 64 73 Respiratory Rate 17 16 Blood Pressure Pulse Oximetry 100 Oxygen Delivery Mechanical Ventilation Fraction of Inspired Oxygen 30 11/06/24 04:00 11/06/24 04:00 11/06/24 04:00 Temperature Pulse Rate 73 73 Respiratory Rate 16 16 Blood Pressure Pulse Oximetry 98 Oxygen Delivery Mechanical Ventilation Fraction of Inspired Oxygen 30 30 11/06/24 04:00 11/06/24 04:00 11/06/24 05:49 Temperature 37.3 C Pulse Rate 73 72 68 Respiratory Rate 16 Blood Pressure 124/60 Pulse Oximetry 98 95 Oxygen Delivery Mechanical Ventilation Fraction of Inspired Oxygen 30 11/06/24 05:53 11/06/24 06:00 11/06/24 06:00 Temperature 37.2 C Pulse Rate 67 67 67 Respiratory Rate 16 16 Blood Pressure 119/85 Pulse Oximetry 99 Oxygen Delivery Fraction of Inspired Oxygen 11/06/24 06:00 11/06/24 06:37 11/06/24 08:00 Temperature Pulse Rate 67 67 Respiratory Rate 16 16 Blood Pressure Pulse Oximetry Oxygen Delivery Mechanical Ventilation Fraction of Inspired Oxygen 30 11/06/24 08:00 11/06/24 08:00 11/06/24 08:00 Temperature 37.1 C Pulse Rate 62 64 Respiratory Rate 16 Blood Pressure 119/60 Pulse Oximetry 98 Oxygen Delivery Fraction of Inspired Oxygen 30 11/06/24 09:10 11/06/24 09:10 11/06/24 10:00 Temperature Pulse Rate 63 63 68 Respiratory Rate 16 Blood Pressure Pulse Oximetry 99 Oxygen Delivery Mechanical Ventilation Fraction of Inspired Oxygen 30 11/06/24 10:00 Temperature 37.3 C Pulse Rate 68 Respiratory Rate 16 Blood Pressure 127/63 Pulse Oximetry 97 Oxygen Delivery Fraction of Inspired Oxygen Intake/Output Intake/Output: Intake & Output 11/03/24 11/04/24 11/05/24 11/06/24 23:59 23:59 23:59 23:59 Intake Total 2041.4 930.9 Output Total 1275 275 Balance 766.4 655.9 Meds/Results Medications: Active Medications Generic Name Dose Route Start Last Admin Trade Name Freq PRN Reason Stop Dose Admin Acetaminophen 650 mg 11/05/24 01:33 Acetaminophen 650 Mg Suppository RECTAL Q6H PRN Mild Pain (1-3) or Fever Albuterol/Ipratropium 3 ml 11/05/24 14:00 11/06/24 09:11 Ipratropium 0.5 Mg/Albuterol Sulfate 2.5 Mg Ampul.Neb 3 Ml INHALATION 3 ml Q6HRT MILLA Administration Aspirin 81 mg 11/06/24 08:00 11/06/24 08:46 Aspirin 81 Mg Chewable Tablet PO 81 mg DAILY@0800 MILLA Administration Atorvastatin Calcium 40 mg 11/06/24 09:00 11/06/24 08:46 Atorvastatin 40 Mg Tablet PO 40 mg DAILY MILLA Administration Dexamethasone Sodium Phosphate 6 mg 11/05/24 01:25 11/06/24 08:46 Dexamethasone Sod Phos Inj 10 Mg/Ml 1 Ml Vial IV PUSH 11/14/24 09:01 6 mg DAILY MILLA Administration Enoxaparin Sodium 40 mg 11/05/24 09:00 11/06/24 08:47 Enoxaparin 40 Mg/0.4 Ml Syringe SUB-Q 40 mg DAILY MILLA Administration Hydralazine HCl 10 mg 11/05/24 10:47 Hydralazine Hcl 20 Mg/Ml Vial IV PUSH Q4H PRN Blood Pressure - High Ceftriaxone Sodium 2 gm in 100 mls @ 200 mls/hr 11/06/24 02:00 11/06/24 02:33 Rocephin 2 Gm/Ns 100 Ml IVPB Infused Q24H MILLA Infusion Remdesivir 100 mg in 250 mls @ 250 mls/hr 11/06/24 10:00 IVPB 11/09/24 10:59 Q24H MILLA Vancomycin HCl 1,500 mg in 500 mls @ 250 mls/hr 11/05/24 23:00 11/06/24 01:18 Vancomycin 1,500 Mg/Ns 500 Ml IVPB Infused Q18H MILLA Infusion Fentanyl Citrate 2,500 mcg in 250 mls @ 7.5 mls/hr 11/05/24 05:05 11/06/24 06:00 Fentanyl 2,500 Mcg/Ns 250 Ml IV CONT 75 mcg/hr .[id number] MILLA 7.5 mls/hr Titration Protocol 75 MCG/HR Azithromycin 500 mg in 250 mls @ 250 mls/hr 11/06/24 03:00 11/06/24 03:59 Zithromax IVPB Infused Q24H MILLA Infusion Midazolam HCl 100 mg in 100 mls @ 1 mls/hr 11/06/24 05:45 11/06/24 06:37 Versed 100 Mg/Ns 100 Ml IV CONT 4 mg/hr .Q72H MILLA 4 mls/hr Titration Protocol 1 MG/HR Multi-Ingred Cream/Lotion/Oil/Oint 1 applic 11/05/24 11:40 11/06/24 08:47 Mineral Oil/White Petrolatum Ointment EACH EYE 1 applic Q12HR MILLA Administration Ondansetron HCl 4 mg 11/05/24 01:33 Ondansetron Inj 4 Mg/2 Ml Vial IV PUSH Q4H PRN Nausea Pantoprazole Sodium 40 mg 11/05/24 09:00 11/06/24 08:46 Pantoprazole Sodium Iv 40 Mg Vial IV PUSH 40 mg QAM MILLA Administration Perflutren Lipid Microsphere 0 ml 11/05/24 04:48 Perflutren Lipid Microspheres 1.5 Ml Vial Diluted To 10 Ml Total Volume IV PUSH 11/08/24 04:49 ONCE PRN adequate visualization Protocol Radiology Results: ITS Impressions Chest/Abdomen/Pelvis CT 11/05/24 07:01 IMPRESSION: 1. Extensive patchy airspace consolidation, consistent with pneumonia. 2: Sclerotic lesion left femoral head, most likely benign bone island, although in the presence of enlarged prostate gland, metastatic disease secondary to prostate cancer should be considered. Head/Cervical Spine/Facial Bones CT 11/05/24 07:07 IMPRESSION: 1. No acute abnormality of the facial bones or cervical spine. 2: Severe cervical spondylosis. 3: Patchy upper lobe infiltrates, consistent with pneumonia. Head CT 11/05/24 07:11 IMPRESSION: 1. No acute intracranial abnormality. Abdomen X-Ray 11/05/24 07:19 IMPRESSION: 1: NG tube tip in the stomach. Chest X-Ray 11/06/24 06:26 IMPRESSION: Bilateral infiltrates, as detailed above. Supportive lines and tubes in good position. Labs Labs: Laboratory Results - last 24 hr 11/06/24 11/06/24 11/06/24 04:33 05:59 06:56 WBC 6.7 RBC 4.11 L Hgb 13.8 L Hct 40.2 L MCV 97.8 MCH 33.6 MCHC 34.3 RDW 12.1 Plt Count 146 L MPV 10.4 Immature Gran % (Auto) 0.4 Neut % (Auto) 82.3 H Lymph % (Auto) 9.2 L Lyman % (Auto) 7.9 Eos % (Auto) 0.1 Baso % (Auto) 0.1 L Lymph # (Auto) 0.62 L Lyman # (Auto) 0.5 Eos # (Auto) 0.0 Baso # (Auto) 0.0 Abs Immat Gran (auto) 0.03 Absolute Neuts (auto) 5.5 Absolute Nucleated RBC 0.000 Nucleated RBC % 0.0 Puncture Site Right radial ABG pH 7.436 ABG pCO2 31.9 L ABG pO2 100.9 H ABG PO2/FiO2 Ratio 3.36 ABG HCO3 21.0 L ABG O2 Saturation 97.8 ABG O2 Content 20.0 ABG Base Excess -2.2 A-a Gradient 75.5 Oxyhemoglobin 97.5 Carboxyhemoglobin 0.5 Methemoglobin 0.0 Reduced Hemoglobin 2.0 Total Hemoglobin 14.5 O2 Delivery Device Ventilator O2 Liters/Min Not Reportable Minute Volume Not Reportable Vent Rate 16 Vent Mode Cmv FiO2 30 Tidal Volume 500 PEEP 5 Peak Inspir Pressure Not Reportable Pressure Support Not Reportable Sodium 137 Potassium 4.0 Chloride 106 Carbon Dioxide 19 L Anion Gap 12 BUN 22 H Creatinine 1.13 Estim Creat Clear Calc 56 Estimated GFR > 60 Glucose 133 H Lactic Acid 2.6 H 2.2 H Calcium 8.2 L Phosphorus 2.5 Magnesium 2.0 Total Bilirubin 0.3 AST 29 ALT 31 Alkaline Phosphatase 48 Total Protein 6.0 L Albumin 3.4 L Prostate Specific Ag 5.5 H
[2024-11-06] MEDS: REMDESIVIR 100 MG/NS 250 ML 100 MG/250 ML BAG 250 MG IVPB (10:38)
[2024-11-06] MEDS: FENTANYL 2,500MCG/NS250ML(*CRX 2,500 MCG/250 ML BAG 7.5 MCG IV CONT (12:00)
--- NOTE | 2024-11-06 13:38 | P.PNIM_ITS ---
Progress Note: A&P Assessment and Plan (1) Acute respiratory failure with hypoxia: Code(s): J96.01 - Acute respiratory failure with hypoxia Status: Acute Assessment and Plan: Acute respiratory failure status post fall/syncope, agonal breathing, initially i-Gel (supraglottic airway) was inserted 11/05:Patient was intubated in the ER - chest x-ray and CT chest abdomen pelvis showed extensive patchy airspace c onsolidation consistent with pneumonia -SARS-CoV-2 PCR was positive -continue bronchodilators -chest x-ray with bilateral infiltrates in the right lower lobe and left lower lobe. 11/05: CT chest abdomen and pelvis 1. Extensive patchy airspace consolidation, consistent with pneumonia. 2: Sclerotic lesion left femoral head, most likely benign bone island, although in the presence of enlarged prostate gland, metastatic disease secondary to prostate cancer should be considered. (2) COVID-19: Code(s): U07.1 - COVID-19 Status: Acute Assessment and Plan: Patient tested positive for SARS-CoV-2 PCR PCR -pneumonia could be related to that or bacterial pneumonia -patient received a dose of tocilizumab in the ER -continue dexamethasone remdesivir (3) Pneumonia: Code(s): J18.9 - Pneumonia, unspecified organism Status: Acute Assessment and Plan: Extensive pneumonia seen on CT chest as above - continue azithromycin, ceftriaxone and vancomycin (11/05) -MRSA screen is negative -11/05: blood cultures negative x2 for -11/05: Sputum cultures obtained and (4) Elevated troponin: Code(s): R79.89 - Other specified abnormal findings of blood chemistry Status: Acute Assessment and Plan: Elevated troponins, initial EKG showed possible atrial flutter, LBBB -appreciate cardiology evaluation and recommendations, -continue aspirin and statin -elevated troponin could be related to type 2 infarct secondary to pneumonia, CAD, arrhythmias which could be related to syncopal episode, -ischemic evaluation depending on clinical course 11/05/2024: Echocardiogram Summary 1. Left ventricular chamber dimension is normal. 2. There is mildly increased left ventricular wall thickness. 3. Left ventricular systolic function is moderately reduced, estimated at 30-35%. 4. Global hypokinesis with more pronounced hypokinesis of the anteroseptum, mid inferoseptum, apex. 5. The left ventricular diastolic function is grade I diastolic dysfunction. 6. Right ventricular systolic function is normal. 7. Left atrial chamber dimension is moderately enlarged. 8. No significant valvular disease. (5) Syncope: Code(s): R55 - Syncope and collapse Status: Acute Assessment and Plan: Patient presented with fall could be related to syncope secondary to hypoxia, a cardiac arrhythmias as when patient arrived he was possible in atrial flutter, tachycardic -elevated troponins, could be related to coronary artery disease/type 2 infarct -echocardiogram as above -will obtain carotid Doppler 11/05:CT head on admission: No acute intracranial abnormality. 11/05: CT cervical spine/facial bones on admission: 1. No acute abnormality of the facial bones or cervical spine.2: Severe cervical spondylosis.3: Patchy upper lobe infiltrates, consistent with pneumonia. (6) Essential hypertension: Code(s): I10 - Essential (primary) hypertension Status: Acute Assessment and Plan: P.r.n. hydralazine (7) Hyperlipidemia: Code(s): E78.5 - Hyperlipidemia, unspecified Status: Acute Assessment and Plan: Continue atorvastatin Plan DVT prophylaxis: Enoxaparin Stress ulcer prophylaxis: Protonix Nutrition: Tolerating tube feeds Code Status: Full code Subjective Date/time seen: 11/06/24 13:38 Interval history: Chart reviewed. Patient intubated and sedated. Review of Systems Review of Systems: ROS unobtainable: Yes unobtainable due to endotracheal tube Exam Narrative: General: In intubated and sedated, in no acute distress HEENT:? Pupils equal and reactive, sclera is clear, ETT in place Neck:? Cervical collar in place Respiratory:? velcro rales bilaterally, coarse breath sounds at bases, decreased air entry at bases with no wheezing Cardiac:? S1-S2 is normal, regular rate and rhythm, no murmurs Abdomen:? Soft, nontender, nondistended, normoactive bowel sounds Extremities:? No edema, palpable pedal pulses Neuro:? Patient is intubated, sedated Skin:? No skin lesions noted Psych:? Unable to assess at this time Objective Data Vital Signs Vital Signs: Vital Signs - 24 hr 11/05/24 14:00 11/05/24 14:00 11/05/24 14:00 Temperature 99.4 F Pulse Rate 73 73 73 Respiratory Rate 16 16 16 Blood Pressure 124/96 H Pulse Oximetry 97 Oxygen Delivery Fraction of Inspired Oxygen 11/05/24 14:00 11/05/24 14:49 11/05/24 14:49 Temperature Pulse Rate 74 72 72 Respiratory Rate 16 Blood Pressure Pulse Oximetry 98 Oxygen Delivery Mechanical Ventilation Fraction of Inspired Oxygen 30 11/05/24 15:07 11/05/24 16:00 11/05/24 16:00 Temperature Pulse Rate 76 78 Respiratory Rate 16 16 Blood Pressure Pulse Oximetry 97 Oxygen Delivery Mechanical Ventilation Fraction of Inspired Oxygen 30 30 11/05/24 16:00 11/05/24 16:00 11/05/24 16:00 Temperature 99.0 F Pulse Rate 78 78 78 Respiratory Rate 16 16 16 Blood Pressure 134/76 Pulse Oximetry 97 Oxygen Delivery Fraction of Inspired Oxygen 11/05/24 16:00 11/05/24 16:08 11/05/24 18:00 Temperature Pulse Rate 77 76 80 Respiratory Rate Blood Pressure Pulse Oximetry 97 Oxygen Delivery Mechanical Ventilation Fraction of Inspired Oxygen 30 11/05/24 18:00 11/05/24 18:00 11/05/24 18:19 Temperature 99.7 F H Pulse Rate 80 80 80 Respiratory Rate 16 16 16 Blood Pressure 127/45 L Pulse Oximetry 98 Oxygen Delivery Fraction of Inspired Oxygen 11/05/24 20:00 11/05/24 20:00 11/05/24 20:00 Temperature 99.2 F Pulse Rate 75 74 74 Respiratory Rate 16 16 Blood Pressure 135/79 Pulse Oximetry 97 Oxygen Delivery Fraction of Inspired Oxygen 11/05/24 20:00 11/05/24 21:54 11/05/24 21:57 Temperature Pulse Rate 74 71 74 Respiratory Rate 16 14 Blood Pressure Pulse Oximetry 98 Oxygen Delivery Mechanical Ventilation Fraction of Inspired Oxygen 30 11/05/24 22:00 11/05/24 22:00 11/05/24 22:00 Temperature Pulse Rate 74 74 Respiratory Rate 16 Blood Pressure Pulse Oximetry 98 Oxygen Delivery Mechanical Ventilation Fraction of Inspired Oxygen 30 30 11/05/24 22:00 11/05/24 22:00 11/05/24 22:00 Temperature 98.8 F Pulse Rate 74 74 74 Respiratory Rate 16 16 16 Blood Pressure 137/79 Pulse Oximetry 98 Oxygen Delivery Fraction of Inspired Oxygen 11/05/24 23:54 11/06/24 00:00 11/06/24 00:00 Temperature 99.3 F Pulse Rate 74 71 74 Respiratory Rate 16 Blood Pressure 109/58 L Pulse Oximetry 98 96 Oxygen Delivery Mechanical Ventilation Fraction of Inspired Oxygen 30 11/06/24 00:00 11/06/24 00:00 11/06/24 00:00 Temperature Pulse Rate 76 76 76 Respiratory Rate 16 16 16 Blood Pressure Pulse Oximetry 96 Oxygen Delivery Mechanical Ventilation Fraction of Inspired Oxygen 30 11/06/24 00:20 11/06/24 02:00 11/06/24 02:00 Temperature 98.7 F Pulse Rate 68 68 Respiratory Rate 16 Blood Pressure 115/63 Pulse Oximetry 98 Oxygen Delivery Fraction of Inspired Oxygen 30 11/06/24 02:00 11/06/24 02:00 11/06/24 02:55 Temperature Pulse Rate 68 76 64 Respiratory Rate 16 16 17 Blood Pressure Pulse Oximetry Oxygen Delivery Fraction of Inspired Oxygen 11/06/24 02:56 11/06/24 04:00 11/06/24 04:00 Temperature Pulse Rate 64 73 73 Respiratory Rate 16 16 Blood Pressure Pulse Oximetry 100 Oxygen Delivery Mechanical Ventilation Fraction of Inspired Oxygen 30 11/06/24 04:00 11/06/24 04:00 11/06/24 04:00 Temperature 99.1 F Pulse Rate 73 73 Respiratory Rate 16 16 Blood Pressure 124/60 Pulse Oximetry 98 98 Oxygen Delivery Mechanical Ventilation Fraction of Inspired Oxygen 30 30 11/06/24 04:00 11/06/24 05:49 11/06/24 05:53 Temperature Pulse Rate 72 68 67 Respiratory Rate 16 Blood Pressure Pulse Oximetry 95 Oxygen Delivery Mechanical Ventilation Fraction of Inspired Oxygen 30 11/06/24 06:00 11/06/24 06:00 11/06/24 06:00 Temperature 98.9 F Pulse Rate 67 67 67 Respiratory Rate 16 16 Blood Pressure 119/85 Pulse Oximetry 99 Oxygen Delivery Fraction of Inspired Oxygen 11/06/24 06:37 11/06/24 08:00 11/06/24 08:00 Temperature Pulse Rate 67 62 Respiratory Rate 16 Blood Pressure Pulse Oximetry Oxygen Delivery Mechanical Ventilation Fraction of Inspired Oxygen 30 11/06/24 08:00 11/06/24 08:00 11/06/24 08:00 Temperature 98.8 F Pulse Rate 64 64 Respiratory Rate 16 16 Blood Pressure 119/60 Pulse Oximetry 98 Oxygen Delivery Fraction of Inspired Oxygen 30 11/06/24 08:00 11/06/24 09:10 11/06/24 09:10 Temperature Pulse Rate 64 63 63 Respiratory Rate 16 16 Blood Pressure Pulse Oximetry 99 Oxygen Delivery Mechanical Ventilation Fraction of Inspired Oxygen 30 11/06/24 10:00 11/06/24 10:00 11/06/24 10:00 Temperature 99.1 F Pulse Rate 68 68 68 Respiratory Rate 16 16 Blood Pressure 127/63 Pulse Oximetry 97 Oxygen Delivery Fraction of Inspired Oxygen 11/06/24 10:00 11/06/24 10:36 11/06/24 12:00 Temperature Pulse Rate 68 69 64 Respiratory Rate 16 16 Blood Pressure Pulse Oximetry 97 Oxygen Delivery Mechanical Ventilation Fraction of Inspired Oxygen 30 11/06/24 12:00 11/06/24 12:00 11/06/24 12:00 Temperature Pulse Rate 64 Respiratory Rate 16 Blood Pressure Pulse Oximetry Oxygen Delivery Mechanical Ventilation Fraction of Inspired Oxygen 30 30 11/06/24 12:00 11/06/24 12:00 11/06/24 12:00 Temperature 98.7 F Pulse Rate 64 63 64 Respiratory Rate 16 16 Blood Pressure 131/63 Pulse Oximetry 96 Oxygen Delivery Fraction of Inspired Oxygen Intake/Output Intake/Output: Intake & Output 11/03/24 11/04/24 11/05/24 11/06/24 23:59 23:59 23:59 23:59 Intake Total 2041.4 1247.4 Output Total 1275 275 Balance 766.4 972.4 Meds/Results Medications: Active Medications Generic Name Dose Route Start Last Admin Trade Name Freq PRN Reason Stop Dose Admin Acetaminophen 650 mg 11/05/24 01:33 Acetaminophen 650 Mg Suppository RECTAL Q6H PRN Mild Pain (1-3) or Fever Albuterol/Ipratropium 3 ml 11/05/24 14:00 11/06/24 09:11 Ipratropium 0.5 Mg/Albuterol Sulfate 2.5 Mg Ampul.Neb 3 Ml INHALATION 3 ml Q6HRT MILLA Administration Aspirin 81 mg 11/06/24 08:00 11/06/24 08:46 Aspirin 81 Mg Chewable Tablet PO 81 mg DAILY@0800 MILLA Administration Atorvastatin Calcium 40 mg 11/06/24 09:00 11/06/24 08:46 Atorvastatin 40 Mg Tablet PO 40 mg DAILY MILLA Administration Dexamethasone Sodium Phosphate 6 mg 11/05/24 01:25 11/06/24 08:46 Dexamethasone Sod Phos Inj 10 Mg/Ml 1 Ml Vial IV PUSH 11/14/24 09:01 6 mg DAILY MILLA Administration Enoxaparin Sodium 40 mg 11/05/24 09:00 11/06/24 08:47 Enoxaparin 40 Mg/0.4 Ml Syringe SUB-Q 40 mg DAILY MILLA Administration Hydralazine HCl 10 mg 11/05/24 10:47 Hydralazine Hcl 20 Mg/Ml Vial IV PUSH Q4H PRN Blood Pressure - High Ceftriaxone Sodium 2 gm in 100 mls @ 200 mls/hr 11/06/24 02:00 11/06/24 02:33 Rocephin 2 Gm/Ns 100 Ml IVPB Infused Q24H MILLA Infusion Remdesivir 100 mg in 250 mls @ 250 mls/hr 11/06/24 10:00 11/06/24 12:04 IVPB 11/09/24 10:59 Infused Q24H MILLA Infusion Vancomycin HCl 1,500 mg in 500 mls @ 250 mls/hr 11/05/24 23:00 11/06/24 01:18 Vancomycin 1,500 Mg/Ns 500 Ml IVPB Infused Q18H MILLA Infusion Fentanyl Citrate 2,500 mcg in 250 mls @ 7.5 mls/hr 11/05/24 05:05 11/06/24 12:00 Fentanyl 2,500 Mcg/Ns 250 Ml IV CONT 75 mcg/hr .[id number] MILLA 7.5 mls/hr Administration Protocol 75 MCG/HR Azithromycin 500 mg in 250 mls @ 250 mls/hr 11/06/24 03:00 11/06/24 03:59 Zithromax IVPB Infused Q24H MILLA Infusion Midazolam HCl 100 mg in 100 mls @ 1 mls/hr 11/06/24 05:45 11/06/24 12:00 Versed 100 Mg/Ns 100 Ml IV CONT 4 mg/hr .Q72H MILLA 4 mls/hr Titration Protocol 1 MG/HR Multi-Ingred Cream/Lotion/Oil/Oint 1 applic 11/05/24 11:40 11/06/24 08:47 Mineral Oil/White Petrolatum Ointment EACH EYE 1 applic Q12HR MILLA Administration Ondansetron HCl 4 mg 11/05/24 01:33 Ondansetron Inj 4 Mg/2 Ml Vial IV PUSH Q4H PRN Nausea Pantoprazole Sodium 40 mg 03/22/25 09:00 11/06/24 08:46 Pantoprazole Sodium Iv 40 Mg Vial IV PUSH 40 mg QAM MILLA Administration Perflutren Lipid Microsphere 0 ml 11/05/24 04:48 Perflutren Lipid Microspheres 1.5 Ml Vial Diluted To 10 Ml Total Volume IV PUSH 11/08/24 04:49 ONCE PRN adequate visualization Protocol Radiology Results: ITS Impressions Chest/Abdomen/Pelvis CT 11/05/24 07:01 IMPRESSION: 1. Extensive patchy airspace consolidation, consistent with pneumonia. 2: Sclerotic lesion left femoral head, most likely benign bone island, although in the presence of enlarged prostate gland, metastatic disease secondary to prostate cancer should be considered. Head/Cervical Spine/Facial Bones CT 11/05/24 07:07 IMPRESSION: 1. No acute abnormality of the facial bones or cervical spine. 2: Severe cervical spondylosis. 3: Patchy upper lobe infiltrates, consistent with pneumonia. Head CT 11/05/24 07:11 IMPRESSION: 1. No acute intracranial abnormality. Abdomen X-Ray 11/05/24 07:19 IMPRESSION: 1: NG tube tip in the stomach. Chest X-Ray 11/06/24 06:26 IMPRESSION: Bilateral infiltrates, as detailed above. Supportive lines and tubes in good position. Labs Labs: Laboratory Results - last 24 hr 11/06/24 11/06/24 11/06/24 04:33 05:59 06:56 WBC 6.7 RBC 4.11 L Hgb 13.8 L Hct 40.2 L MCV 97.8 MCH 33.6 MCHC 34.3 RDW 12.1 Plt Count 146 L MPV 10.4 Immature Gran % (Auto) 0.4 Neut % (Auto) 82.3 H Lymph % (Auto) 9.2 L [place] % (Auto) 7.9 Eos % (Auto) 0.1 Baso % (Auto) 0.1 L Lymph # (Auto) 0.62 L [place] # (Auto) 0.5 Eos # (Auto) 0.0 Baso # (Auto) 0.0 Abs Immat Gran (auto) 0.03 Absolute Neuts (auto) 5.5 Absolute Nucleated RBC 0.000 Nucleated RBC % 0.0 Puncture Site Right radial ABG pH 7.436 ABG pCO2 31.9 L ABG pO2 100.9 H ABG PO2/FiO2 Ratio 3.36 ABG HCO3 21.0 L ABG O2 Saturation 97.8 ABG O2 Content 20.0 ABG Base Excess -2.2 A-a Gradient 75.5 Oxyhemoglobin 97.5 Carboxyhemoglobin 0.5 Methemoglobin 0.0 Reduced Hemoglobin 2.0 Total Hemoglobin 14.5 O2 Delivery Device Ventilator O2 Liters/Min Not Reportable Minute Volume Not Reportable Vent Rate 16 Vent Mode Cmv FiO2 30 Tidal Volume 500 PEEP 5 Peak Inspir Pressure Not Reportable Pressure Support Not Reportable Sodium 137 Potassium 4.0 Chloride 106 Carbon Dioxide 19 L Anion Gap 12 BUN 22 H Creatinine 1.13 Estim Creat Clear Calc 56 Estimated GFR > 60 Glucose 133 H Lactic Acid 2.6 H 2.2 H Calcium 8.2 L Phosphorus 2.5 Magnesium 2.0 Total Bilirubin 0.3 AST 29 ALT 31 Alkaline Phosphatase 48 Total Protein 6.0 L Albumin 3.4 L Prostate Specific Ag 5.5 H
[2024-11-06 16:27] LABS: Vancomycin Trough 8.4 ug/mL (10.0-20.0)
[2024-11-06] MEDS: VANCOMYCIN 2,000 MG/NS 500 ML 2,000 MG/500 ML BAG 250 MG IVPB (17:09)
[2024-11-06 22:12] LABS: Triglycerides 93 mg/dL (<150)
[2024-11-07] VITALS (67 sets, daily range): BP systolic 117–203; BP diastolic 50–110; PULSE 59–101; RESP 11–21; TEMP 36.4–37.1; O2SAT 15–100; BMI 27.1
[2024-11-07] MEDS: cefTRIAXone 2 GM/NS 100 ML 2 GM/100 ML BAG IVPB (01:06)
[2024-11-07] MEDS: IPRATROPIUM 0.5 MG/ALBUTEROL SULFATE 2.5 MG AMPUL.NEB 3 ML INHALATION ×2 (01:53→08:43)
[2024-11-07] MEDS: AZITHROMYCIN 500 MG/NS 250 ML 500 MG/250 ML BAG 250 MG IVPB (03:13)
[2024-11-07] MEDS: MIDAZOLAM 100MG/NS 100ML(*CRX) 100 MG/100 ML BAG 6 MG IV CONT (04:46)
[2024-11-07 04:56] LABS: Hematocrit 37.9 % (42.0-52.0); Hemoglobin 12.7 g/dL (14.0-18.0); Immature Granulocyte Absolute 0.04 K/mm3 (0.00-0.031); Immature Granulocyte Percent A 0.6 % (0-0.5); Immature Platelet Fraction Pct 3.7 % (0.9-11.2); Lymphocytes Absolute Auto 0.54 K/mm3 (0.9-3.2); Lymphocytes Percent Auto 8.3 % (18.3-44.2); Mean Corpuscular HGB Conc 33.5 g/dl (32-36); Mean Corpuscular Hemoglobin 33.1 pg (26-34); Mean Corpuscular Volume 98.7 fl (80-100); Mean Platelet Volume 10.5 fl (7.4-10.4); Monocytes Absolute Auto 0.2 K/mm3 (0.1-0.6); Monocytes Percent Auto 3.7 % (2.6-8.5); Neutrophils Absolute Auto 5.7 K/mm3 (1.3-6.7); Neutrophils Percent Auto 87.4 % (45.5-73.1); Platelet Count Result 127 k/mm3 (150-375); Red Blood Count 3.84 M/mm3 (4.6-6.20); Red Cell Distribution Width 11.8 % (11.5-14.5); White Blood Count 6.5 K/mm3 (4.5-10.0)
[2024-11-07 05:06] LABS: INR 1.1; Prothrombin Time 14.1 Seconds (11.1-14.7)
[2024-11-07 05:13] LABS: Alanine Aminotransferase 25 U/L (6-50); Albumin Level 3.2 g/dL (3.5-5.1); Alkaline Phosphatase 44 U/L (38-126); Anion Gap 9 mmol/L (4-12); Aspartate Amino Transferase 24 U/L (17-59); Bilirubin,Total 0.1 mg/dL (0.2-1.3); Blood Urea Nitrogen 26 mg/dL (9-20); Calcium 8.1 mg/dL (8.4-10.2); Carbon Dioxide 21 mmol/L (22-30); Chloride 107 mmol/L (98-107); Estimated CRCL calculation 61 ml/min; Estimated Glomerular Filt Rate > 60; Glucose 186 mg/dL (65-110); Phosphorus 2.5 mg/dL (2.5-4.5); Potassium 3.8 mmol/L (3.4-5.0); Sodium 137 mmol/L (137-145)
[2024-11-07 05:15] LABS: Lactic Acid Reflex 2.5 mmol/L (0.7-2.0)
[2024-11-07 05:17] LABS: Base Excess ABG -2.7 mEq/l (+/-2.0); Carboxyhemoglobin 0.4 % THb (0-2.0); Fractional Inspired Oxygen 30 %; HCO3 ABG 21.8 mEq/l (22.0-26.0); Methemoglobin ABG 0.1 %THb (0-1.5); Oxygen Content ABG 18.1 %vol (16.0-22.0); Oxyhemoglobin 96.4 % THb (90.0-100.0); PCO2 ABG 37.2 mmHg (35.0-45.0); PO2 ABG 92.2 mmHg (80.0-100.0); PO2 FiO2 Ratio Arterial Blood 3.07 %; Reduced Hemoglobin 3.1 %THb (0-5.0); Total Hemoglobin 13.3 g/dL (12.0-18.0); pH ABG 7.386 (7.350-7.450)
[2024-11-07 05:20] LABS: Arterial Blood Gas Ventilator rate 16 /MIN; Device VENTILATOR; Modified Allen's Test Pass; Site Drawn RIGHT RADIAL
[2024-11-07 05:21] LABS: Arterial Blood Gas PEEP 5 cmH2O; Arterial Blood Gas Tidal Volume 500 ml; Arterial Blood Gas Vent Mode CMV
[2024-11-07] MEDS: VANCOMYCIN 2,000 MG/NS 500 ML 2,000 MG/500 ML BAG 250 MG IVPB (05:26)
[2024-11-07 06:49] LABS: Reflex Lactic Acid Yes or No Add Lactic
[2024-11-07 07:25] LABS: Lactic Acid 1.8 mmol/L (0.7-2.0)
[2024-11-07] MEDS: ATORVASTATIN 40 MG TABLET PO (08:36)
[2024-11-07] MEDS: ASPIRIN 81 MG CHEWABLE TABLET PO (08:36)
[2024-11-07] MEDS: POTASSIUM CHLORIDE 20 MEQ PACKET (FOR LIQUID) 40 MEQ FEED TUBE (08:36)
[2024-11-07] MEDS: PANTOPRAZOLE SODIUM IV 40 MG VIAL IV PUSH (08:37)
[2024-11-07] MEDS: ALBUMIN HUMAN 25% 25 GM/100 ML 100 ML IVPB (08:37)
[2024-11-07] MEDS: FUROSEMIDE INJ 40 MG/4 ML VIAL IV PUSH (08:37)
[2024-11-07] MEDS: dexAMETHasone SOD PHOS INJ 10 MG/ML 1 ML VIAL 6 MG IV PUSH (08:37)
--- NOTE | 2024-11-07 08:37 | P.PNCA_ITS ---
Progress Note: A&P Assessment and Plan (1) Elevated troponin: Code(s): R79.89 - Other specified abnormal findings of blood chemistry Status: Acute Plan 1. Elevated troponin level 2. Intermittent LBBB 3. Acute hypoxic respiratory failure requiring mechanical ventilation 4. Syncopal episode 5. COVID pneumonia 6. Heart failure with reduced LVEF of 30-35% per TTE 11/05 PLAN: -Elevated troponins probably due to demand ischemia in setting of acute hypoxic respiratory failure, COVID pneumonia. However, echo shows LVEF 30-35%, global hypokinesis with more pronounced hypokinesis of the anteroseptum, mid inferoseptum, apex. Given these findings, will plan for ischemic evaluation once he has recovered more. -Continue ASA 81mg once daily and high intensity statin. -Given reduced LVEF, will slowly introduce GDMT. -Start ToprolXL 12.5mg daily -Start Entresto 24-26mg b.i.d. -EKG on admission shows heart rate of 140bpm, possibly fast sinus, cannot rule out atrial flutter, LBBB. Telemetry since admission shows sinus rhythm with narrow QRS, today has had some bigeminy and PVC's. Continue to monitor on tele. Given syncopal event prior to admission, recommend 30 day event monitor at time of discharge. Recommendations and plan discussed with ICU Physician. Subjective Date/time seen: 11/07/24 08:37 Interval history: Reason for visit: Elevated troponin HPI: We are consulted for elevated troponin. Unable to obtain any history from the patient as he is intubated and sedated, therefore, history obtained from the medical chart and medical team; no family at bedside to provide history. Renaldo is a 74 year old male with hyperlipidemia and GERD who presented to [facility] after he was found unresponsive after a fall. Reportedly had fever, aches, cough, shortness of breath with exertion over past couple of days, along with poor appetite. heard a thud and found him on the floor. He was still breathing, but unresponsive. Upon EMS arrival, he had agonal respirations, and a supraglottic airway was inserted. EKG on admission shows heart rate of 140bpm, possibly fast sinus, cannot rule out atrial flutter, LBBB. Telemetry since admission shows sinus rhythm with narrow QRS. Initial troponin negative, increased to 0.406. NT pro BNP mildly elevated at 372. COVID positive. Chest CT shows extensive patchy airspace consolidation, consistent with pneumonia. Date of service 11/06: Remains intubated. Tele with occasional PVCs, no recurrence of LBBB. Date of service 11/08/2023: Review of Systems Review of Systems: ROS unobtainable: Yes unobtainable due to endotracheal tube and unobtainable due to medical condition Exam Const: Other: Ill appearing male, intubated/sedated HENMT: Other: OETT in place Resp: Other: On mechanical ventilation. Cardio: Rate: regular rate Rhythm: regular rhythm Heart sounds: no murmurs Neuro: Other: Sedated Objective Data Vital Signs Vital Signs: Vital Signs - 24 hr 11/06/24 09:10 11/06/24 09:10 11/06/24 10:00 Temperature Pulse Rate 63 63 68 Respiratory Rate 16 Blood Pressure Pulse Oximetry 99 Oxygen Delivery Mechanical Ventilation Fraction of Inspired Oxygen 30 11/06/24 10:00 11/06/24 10:00 11/06/24 10:00 Temperature 37.3 C Pulse Rate 68 68 68 Respiratory Rate 16 16 16 Blood Pressure 127/63 Pulse Oximetry 97 Oxygen Delivery Fraction of Inspired Oxygen 11/06/24 10:36 11/06/24 12:00 11/06/24 12:00 Temperature Pulse Rate 69 64 64 Respiratory Rate 16 16 Blood Pressure Pulse Oximetry 97 Oxygen Delivery Mechanical Ventilation Fraction of Inspired Oxygen 30 11/06/24 12:00 11/06/24 12:00 11/06/24 12:00 Temperature Pulse Rate 64 Respiratory Rate 16 Blood Pressure Pulse Oximetry Oxygen Delivery Mechanical Ventilation Fraction of Inspired Oxygen 30 30 11/06/24 12:00 11/06/24 12:00 11/06/24 13:52 Temperature 37.1 C Pulse Rate 63 64 65 Respiratory Rate 16 Blood Pressure 131/63 Pulse Oximetry 96 97 Oxygen Delivery Mechanical Ventilation Fraction of Inspired Oxygen 30 11/06/24 13:52 11/06/24 14:00 11/06/24 14:00 Temperature 36.9 C Pulse Rate 65 70 70 Respiratory Rate 16 16 Blood Pressure 157/55 H Pulse Oximetry 99 Oxygen Delivery Fraction of Inspired Oxygen 11/06/24 14:00 11/06/24 14:00 11/06/24 14:05 Temperature Pulse Rate 70 70 74 Respiratory Rate 16 16 16 Blood Pressure Pulse Oximetry Oxygen Delivery Fraction of Inspired Oxygen 11/06/24 15:58 11/06/24 15:59 11/06/24 16:00 Temperature Pulse Rate 74 Respiratory Rate Blood Pressure Pulse Oximetry Oxygen Delivery Mechanical Ventilation Fraction of Inspired Oxygen 30 30 11/06/24 16:00 11/06/24 16:00 11/06/24 16:00 Temperature 36.8 C Pulse Rate 70 70 70 Respiratory Rate 17 16 16 Blood Pressure 138/64 Pulse Oximetry 98 Oxygen Delivery Fraction of Inspired Oxygen 11/06/24 16:43 11/06/24 18:00 11/06/24 18:00 Temperature 36.8 C Pulse Rate 69 68 68 Respiratory Rate 16 Blood Pressure 114/58 L Pulse Oximetry 95 97 Oxygen Delivery Mechanical Ventilation Fraction of Inspired Oxygen 30 11/06/24 18:00 11/06/24 18:00 11/06/24 19:35 Temperature Pulse Rate 68 68 Respiratory Rate 16 16 Blood Pressure Pulse Oximetry Oxygen Delivery Fraction of Inspired Oxygen 30 11/06/24 19:35 11/06/24 20:00 11/06/24 20:00 Temperature 36.6 C Pulse Rate 67 66 64 Respiratory Rate 16 16 Blood Pressure 145/68 H Pulse Oximetry 100 99 Oxygen Delivery Mechanical Ventilation Fraction of Inspired Oxygen 30 11/06/24 20:00 11/06/24 20:00 11/06/24 20:18 Temperature Pulse Rate 76 66 66 Respiratory Rate 16 16 Blood Pressure Pulse Oximetry 96 Oxygen Delivery Mechanical Ventilation Fraction of Inspired Oxygen 30 11/06/24 20:19 11/06/24 20:30 11/06/24 20:45 Temperature 36.8 C Pulse Rate 66 66 65 Respiratory Rate 16 16 16 Blood Pressure Pulse Oximetry 96 Oxygen Delivery Fraction of Inspired Oxygen 11/06/24 21:20 11/06/24 21:30 11/06/24 21:31 Temperature 36.8 C 36.7 C 36.7 C Pulse Rate 65 67 65 Respiratory Rate 16 16 16 Blood Pressure 123/59 L Pulse Oximetry 96 93 97 Oxygen Delivery Fraction of Inspired Oxygen 11/06/24 21:45 11/06/24 22:00 11/06/24 22:00 Temperature 36.7 C Pulse Rate 73 76 76 Respiratory Rate 18 16 16 Blood Pressure Pulse Oximetry 100 Oxygen Delivery Fraction of Inspired Oxygen 11/06/24 22:00 11/06/24 22:12 11/06/24 22:15 Temperature 36.7 C 36.8 C Pulse Rate 98 115 H 115 H Respiratory Rate 22 H 19 Blood Pressure 159/89 H Pulse Oximetry 100 97 Oxygen Delivery Fraction of Inspired Oxygen 11/06/24 22:15 11/06/24 22:15 11/06/24 22:15 Temperature 36.8 C 36.8 C Pulse Rate 115 H 115 H 102 H Respiratory Rate 16 16 14 Blood Pressure 159/89 H Pulse Oximetry 98 98 Oxygen Delivery Fraction of Inspired Oxygen 11/06/24 22:30 11/06/24 22:31 11/06/24 22:45 Temperature 36.9 C 36.9 C 37.0 C Pulse Rate 95 97 91 Respiratory Rate 21 H 22 H 16 Blood Pressure 166/68 H Pulse Oximetry 97 100 98 Oxygen Delivery Fraction of Inspired Oxygen 11/06/24 23:00 11/06/24 23:01 11/06/24 23:10 Temperature 37.0 C 37.0 C Pulse Rate 87 85 88 Respiratory Rate 13 22 H 19 Blood Pressure 147/71 H Pulse Oximetry 97 98 Oxygen Delivery Fraction of Inspired Oxygen 11/06/24 23:15 11/06/24 23:23 11/06/24 23:30 Temperature 36.9 C 37.0 C Pulse Rate 85 66 84 Respiratory Rate 18 15 Blood Pressure Pulse Oximetry 100 96 97 Oxygen Delivery Mechanical Ventilation Fraction of Inspired Oxygen 30 11/06/24 23:31 11/07/24 00:00 11/07/24 00:00 Temperature 37.0 C Pulse Rate 83 75 Respiratory Rate 16 Blood Pressure 135/62 Pulse Oximetry 98 Oxygen Delivery Fraction of Inspired Oxygen 30 11/07/24 00:00 11/07/24 00:00 11/07/24 00:00 Temperature 36.9 C Pulse Rate 75 75 75 Respiratory Rate 16 16 16 Blood Pressure 121/50 L Pulse Oximetry 96 Oxygen Delivery Fraction of Inspired Oxygen 11/07/24 01:00 11/07/24 02:00 11/07/24 02:00 Temperature Pulse Rate 69 70 70 Respiratory Rate 16 17 17 Blood Pressure 131/94 H Pulse Oximetry 98 98 Oxygen Delivery Mechanical Ventilation Fraction of Inspired Oxygen 30 11/07/24 02:00 11/07/24 02:02 11/07/24 03:19 Temperature Pulse Rate 70 71 69 Respiratory Rate 16 17 Blood Pressure Pulse Oximetry Oxygen Delivery Fraction of Inspired Oxygen 11/07/24 04:00 11/07/24 04:00 11/07/24 04:00 Temperature Pulse Rate 74 74 76 Respiratory Rate 16 16 Blood Pressure Pulse Oximetry 97 Oxygen Delivery Mechanical Ventilation Fraction of Inspired Oxygen 30 11/07/24 04:00 11/07/24 04:00 11/07/24 04:46 Temperature 36.7 C Pulse Rate 74 73 Respiratory Rate 16 16 Blood Pressure 117/56 L Pulse Oximetry 97 Oxygen Delivery Fraction of Inspired Oxygen 30 11/07/24 04:46 11/07/24 05:14 11/07/24 05:30 Temperature Pulse Rate 73 66 65 Respiratory Rate 16 16 Blood Pressure Pulse Oximetry 96 Oxygen Delivery Mechanical Ventilation Fraction of Inspired Oxygen 30 11/07/24 06:00 11/07/24 06:00 11/07/24 06:12 Temperature 36.6 C Pulse Rate 65 65 64 Respiratory Rate 16 16 Blood Pressure 126/56 L Pulse Oximetry 99 Oxygen Delivery Fraction of Inspired Oxygen 11/07/24 06:13 11/07/24 08:00 11/07/24 08:00 Temperature Pulse Rate 63 64 60 Respiratory Rate 16 Blood Pressure Pulse Oximetry 100 Oxygen Delivery Mechanical Ventilation Fraction of Inspired Oxygen 30 11/07/24 08:00 11/07/24 08:00 Temperature 36.4 C Pulse Rate 59 L Respiratory Rate 16 Blood Pressure 145/74 H Pulse Oximetry 99 Oxygen Delivery Fraction of Inspired Oxygen 30 Intake/Output Intake/Output: Intake & Output 11/04/24 11/05/24 11/06/24 11/07/24 23:59 23:59 23:59 23:59 Intake Total 2041.4 2851.0 959.5 Output Total 1275 675 500 Balance 766.4 2176.0 459.5 Meds/Results Medications: Active Medications Generic Name Dose Route Start Last Admin Trade Name Freq PRN Reason Stop Dose Admin Acetaminophen 650 mg 11/05/24 01:33 Acetaminophen 650 Mg Suppository RECTAL Q6H PRN Mild Pain (1-3) or Fever Albuterol/Ipratropium 3 ml 11/07/24 08:06 Ipratropium 0.5 Mg/Albuterol Sulfate 2.5 Mg Ampul.Neb 3 Ml INHALATION Q6HRT PRN Wheezing Aspirin 81 mg 11/06/24 08:00 11/06/24 08:46 Aspirin 81 Mg Chewable Tablet PO 81 mg DAILY@0800 MILLA Administration Atorvastatin Calcium 40 mg 11/06/24 09:00 11/06/24 08:46 Atorvastatin 40 Mg Tablet PO 40 mg DAILY MILLA Administration Dexamethasone Sodium Phosphate 6 mg 11/05/24 01:25 11/06/24 08:46 Dexamethasone Sod Phos Inj 10 Mg/Ml 1 Ml Vial IV PUSH 11/14/24 09:01 6 mg DAILY MILLA Administration Dextrose 12.5 gm 11/07/24 08:06 Dextrose 50% 25 Gm/50 Ml Syringe IV PUSH PRN PRN Hypoglycemia Protocol Enoxaparin Sodium 40 mg 11/05/24 09:00 11/06/24 08:47 Enoxaparin 40 Mg/0.4 Ml Syringe SUB-Q 40 mg DAILY MILLA Administration Glucagon 1 mg 11/07/24 08:06 Glucagon For Inj 1 Mg Vial IM PRN PRN Hypoglycemia Protocol Glucose 15 gm 11/07/24 08:06 Glucose Oral Gel 15 Gm Of Glucse In 37.5 Gm Tube PO PRN PRN Hypoglycemia Protocol Hydralazine HCl 10 mg 11/05/24 10:47 Hydralazine Hcl 20 Mg/Ml Vial IV PUSH Q4H PRN Blood Pressure - High Ceftriaxone Sodium 2 gm in 100 mls @ 200 mls/hr 11/06/24 02:00 11/07/24 02:12 Rocephin 2 Gm/Ns 100 Ml IVPB Infused Q24H MILLA Infusion Remdesivir 100 mg in 250 mls @ 250 mls/hr 11/06/24 10:00 11/06/24 12:04 IVPB 11/09/24 10:59 Infused Q24H MILLA Infusion Fentanyl Citrate 2,500 mcg in 250 mls @ 12.5 mls/hr 11/05/24 05:05 11/07/24 06:12 Fentanyl 2,500 Mcg/Ns 250 Ml IV CONT 125 mcg/hr .Q20H IMLLA 12.5 mls/hr Titration Protocol 125 MCG/HR Azithromycin 500 mg in 250 mls @ 250 mls/hr 11/06/24 03:00 11/07/24 03:13 Zithromax IVPB 11/11/24 02:59 250 mls/hr Q24H MILLA Administration Midazolam HCl 100 mg in 100 mls @ 5 mls/hr 11/06/24 05:45 11/07/24 06:13 Versed 100 Mg/Ns 100 Ml IV CONT 5 mg/hr .Q20H MILLA 5 mls/hr Titration Protocol 5 MG/HR Dextrose 1,000 mls @ 100 mls/hr 11/07/24 08:06 Dextrose 5% 1,000 Ml IVPB PRN PRN Hypoglycemia Protocol Albumin Human 100 mls @ 60 mls/hr 11/07/24 08:11 Albutein IVPB 11/07/24 09:50 ONCE ONE Insulin Aspart 3 - 6 units 11/07/24 09:00 Insulin Aspart (*Bkc) 100 Units/Ml SUB-Q Q4HR MILLA Protocol Multi-Ingred Cream/Lotion/Oil/Oint 1 applic 11/05/24 11:40 11/06/24 20:03 Mineral Oil/White Petrolatum Ointment EACH EYE Not Given Q12HR MILLA Ondansetron HCl 4 mg 11/05/24 01:33 Ondansetron Inj 4 Mg/2 Ml Vial IV PUSH Q4H PRN Nausea Pantoprazole Sodium 40 mg 11/05/24 09:00 11/06/24 08:46 Pantoprazole Sodium Iv 40 Mg Vial IV PUSH 40 mg QAM MILLA Administration Perflutren Lipid Microsphere 0 ml 11/05/24 04:48 Perflutren Lipid Microspheres 1.5 Ml Vial Diluted To 10 Ml Total Volume IV PUSH 11/08/24 04:49 ONCE PRN adequate visualization Protocol Radiology Results: ITS Impressions Chest/Abdomen/Pelvis CT 11/05/24 07:01 IMPRESSION: 1. Extensive patchy airspace consolidation, consistent with pneumonia. 2: Sclerotic lesion left femoral head, most likely benign bone island, although in the presence of enlarged prostate gland, metastatic disease secondary to prostate cancer should be considered. Head/Cervical Spine/Facial Bones CT 11/05/24 07:07 IMPRESSION: 1. No acute abnormality of the facial bones or cervical spine. 2: Severe cervical spondylosis. 3: Patchy upper lobe infiltrates, consistent with pneumonia. Head CT 11/05/24 07:11 IMPRESSION: 1. No acute intracranial abnormality. Abdomen X-Ray 11/05/24 07:19 IMPRESSION: 1: NG tube tip in the stomach. Carotid Doppler Study 11/06/24 15:13 IMPRESSION: 1. Less than 50% stenosis in the right internal carotid artery. 2. Less than 50% stenosis in the left internal carotid artery. Chest X-Ray 11/07/24 06:15 IMPRESSION: 1. Stable airspace opacities in the lower lung zones, consistent with pneumonia. Labs Labs: Laboratory Results - last 24 hr 11/06/24 11/06/24 11/07/24 16:01 16:06 04:37 WBC 6.5 RBC 3.84 L Hgb 12.7 L Hct 37.9 L MCV 98.7 MCH 33.1 MCHC 33.5 RDW 11.8 Plt Count 127 L MPV 10.5 H Immature Gran % (Auto) 0.6 H Neut % (Auto) 87.4 H Lymph % (Auto) 8.3 L [place] % (Auto) 3.7 Eos % (Auto) 0.0 Baso % (Auto) 0.0 L Lymph # (Auto) 0.54 L [place] # (Auto) 0.2 Eos # (Auto) 0.0 Baso # (Auto) 0.0 Abs Immat Gran (auto) 0.04 H Absolute Neuts (auto) 5.7 Absolute Nucleated RBC 0.000 Nucleated RBC % 0.0 % Immature Plt Fraction 3.7 PT 14.1 INR 1.1 Puncture Site ABG pH ABG pCO2 ABG pO2 ABG PO2/FiO2 Ratio ABG HCO3 ABG O2 Saturation ABG O2 Content ABG Base Excess A-a Gradient Oxyhemoglobin Carboxyhemoglobin Methemoglobin Reduced Hemoglobin Total Hemoglobin O2 Delivery Device O2 Liters/Min Minute Volume Vent Rate Vent Mode FiO2 Tidal Volume PEEP Peak Inspir Pressure Pressure Support Sodium 137 Potassium 3.8 Chloride 107 Carbon Dioxide 21 L Anion Gap 9 BUN 26 H Creatinine 1.04 Estim Creat Clear Calc 61 Estimated GFR > 60 Glucose 186 H Lactic Acid 2.5 H Calcium 8.1 L Phosphorus 2.5 Magnesium 2.0 Total Bilirubin 0.1 L AST 24 ALT 25 Alkaline Phosphatase 44 Total Protein 6.0 L Albumin 3.2 L Triglycerides 93 Vancomycin Trough 8.4 L 11/07/24 11/07/24 05:14 07:06 WBC RBC Hgb Hct MCV MCH MCHC RDW Plt Count MPV Immature Gran % (Auto) Neut % (Auto) Lymph % (Auto) [place] % (Auto) Eos % (Auto) Baso % (Auto) Lymph # (Auto) [place] # (Auto) Eos # (Auto) Baso # (Auto) Abs Immat Gran (auto) Absolute Neuts (auto) Absolute Nucleated RBC Nucleated RBC % % Immature Plt Fraction PT INR Puncture Site Right radial ABG pH 7.386 ABG pCO2 37.2 ABG pO2 92.2 ABG PO2/FiO2 Ratio 3.07 ABG HCO3 21.8 L ABG O2 Saturation 97.0 ABG O2 Content 18.1 ABG Base Excess -2.7 A-a Gradient 78.0 Oxyhemoglobin 96.4 Carboxyhemoglobin 0.4 Methemoglobin 0.1 Reduced Hemoglobin 3.1 Total Hemoglobin 13.3 O2 Delivery Device Ventilator O2 Liters/Min Not Reportable Minute Volume Not Reportable Vent Rate 16 Vent Mode Cmv FiO2 30 Tidal Volume 500 PEEP 5 Peak Inspir Pressure Not Reportable Pressure Support Not Reportable Sodium Potassium Chloride Carbon Dioxide Anion Gap BUN Creatinine Estim Creat Clear Calc Estimated GFR Glucose Lactic Acid 1.8 Calcium Phosphorus Magnesium Total Bilirubin AST ALT Alkaline Phosphatase Total Protein Albumin Triglycerides Vancomycin Trough Quality VTE Prophylaxis VTE prophylaxis: pharmacologic ordered
[2024-11-07] MEDS: ENOXAPARIN 40 MG/0.4 ML SYRINGE SUB-Q (08:38)
[2024-11-07] MEDS: MINERAL OIL/WHITE PETROLATUM OINTMENT 1 APPLIC EACH EYE (08:38)
--- NOTE | 2024-11-07 08:45 | P.PNINT_ITS ---
Progress Note: A&P Assessment and Plan (1) Acute respiratory failure with hypoxia: Code(s): J96.01 - Acute respiratory failure with hypoxia Status: Acute Assessment and Plan: Acute respiratory failure status post fall/syncope, agonal breathing, initially i-Gel (supraglottic airway) was inserted Appears to be multifactorial secondary to pneumonia could be aspiration, congestive heart failure and patient also tested positive for COVID-19. He has been vaccinated in the past 11/05:Patient was intubated in the ER -remains on CMV mode of ventilation, peep of 5, 30% FiO2 - chest x-ray and ABG reviewed -SARS-CoV-2 PCR was positive -continue bronchodilators but change to p.r.n. - Lasix IV -continue Rocephin and azithromycin. Discontinue vancomycin -continue dexamethasone and remdesivir -sedation holiday and evaluate for weaning trial -isolation 11/05: CT chest abdomen and pelvis 1. Extensive patchy airspace consolidation, consistent with pneumonia. 2: Sclerotic lesion left femoral head, most likely benign bone island, although in the presence of enlarged prostate gland, metastatic disease secondary to prostate cancer should be considered. (2) COVID-19: Code(s): U07.1 - COVID-19 Status: Acute Assessment and Plan: Patient tested positive for SARS-CoV-2 PCR PCR -pneumonia could be related to that or bacterial pneumonia -patient received a dose of tocilizumab in the ER -continue dexamethasone remdesivir (3) Pneumonia: Code(s): J18.9 - Pneumonia, unspecified organism Status: Acute Assessment and Plan: Extensive pneumonia seen on CT chest as above - continue azithromycin, ceftriaxone (11/05). Discontinue vancomycin -MRSA screen is negative -11/05: blood cultures negative x2 for -11/05: Sputum cultures obtained and (4) Elevated troponin: Code(s): R79.89 - Other specified abnormal findings of blood chemistry Status: Acute Assessment and Plan: Elevated troponins, initial EKG showed possible atrial flutter, LBBB -appreciate cardiology evaluation and recommendations, -continue aspirin and statin -elevated troponin could be related to type 2 infarct secondary to pneumonia, CAD, arrhythmias which could be related to syncopal episode, -ischemic evaluation depending on clinical course -Lasix IV 11/05/2024: Echocardiogram Summary 1. Left ventricular chamber dimension is normal. 2. There is mildly increased left ventricular wall thickness. 3. Left ventricular systolic function is moderately reduced, estimated at 30- 35%. 4. Global hypokinesis with more pronounced hypokinesis of the anteroseptum, mid inferoseptum, apex. 5. The left ventricular diastolic function is grade I diastolic dysfunction. 6. Right ventricular systolic function is normal. 7. Left atrial chamber dimension is moderately enlarged. 8. No significant valvular disease. (5) Syncope: Code(s): R55 - Syncope and collapse Status: Acute Assessment and Plan: Patient presented with fall could be related to syncope secondary to hypoxia, a cardiac arrhythmias as when patient arrived he was possible in atrial flutter, tachycardic -elevated troponins, could be related to coronary artery disease/type 2 infarct -echocardiogram as above -less than 50% stenosis bilaterally on carotid Doppler 11/05:CT head on admission: No acute intracranial abnormality. 11/05: CT cervical spine/facial bones on admission: 1. No acute abnormality of the facial bones or cervical spine.2: Severe cervical spondylosis.3: Patchy upper lobe infiltrates, consistent with pneumonia. (6) Essential hypertension: Code(s): I10 - Essential (primary) hypertension Status: Acute Assessment and Plan: P.r.n. hydralazine (7) Hyperlipidemia: Code(s): E78.5 - Hyperlipidemia, unspecified Status: Acute Assessment and Plan: Continue atorvastatin Plan DVT prophylaxis: Enoxaparin Stress ulcer prophylaxis: Protonix Nutrition: Tolerating tube feeds Code Status: Full code Critical Care Time Spent: 32 minutes Due to a high probability of clinically significant, life threatening deterioration, the patient required my highest level of preparedness to intervene emergently and I personally spent this critical care time directly and personally managing the patient. This critical care time included obtaining a history; examining the patient; pulse oximetry; ordering and review of studies; arranging urgent treatment with development of a management plan; evaluation of patient's response to treatment; frequent reassessment; and discussions with other providers. It was exclusive of separately billable procedures and treating other patients and teaching time. Please see Assessment and Plan section and the rest of the note for further information on patient assessment and treatment This dictation may have been done utilizing a voice recognition system. Attempts have been made to correct errors. However, there may be uncorrected grammatical, spelling, and recognitions errors present. Subjective Date/time seen: 11/07/24 Overnight events reviewed. Afebrile Continues to be on mechanical ventilation 30% FiO2 Opens eyes on stimulation and follows commands. Continues to be sedated with Versed and fentanyl Other Vitals acceptable Tolerating tube feeds Interval history: Reason for consult: Fall, acute respiratory failure, syncope, COVID-19 Review of Systems Review of Systems: ROS unobtainable: Yes unobtainable due to endotracheal tube and unobtainable due to medical condition Exam Narrative: General: In intubated and sedated, in no acute distress HEENT:? Pupils equal and reactive, sclera is clear, ETT in place Neck:? Cervical collar in place Respiratory:? velcro rales bilaterally, coarse breath sounds at bases, decreased air entry at bases with no wheezing Cardiac:? S1-S2 is normal, regular rate and rhythm, no murmurs Abdomen:? Soft, nontender, nondistended, normoactive bowel sounds Extremities:? No edema, palpable pedal pulses Neuro:? Patient is intubated, sedated, opens his eyes and follows simple commands in all extremities, nods to questions Skin:? No skin lesions noted Psych:? Unable to assess at this time Objective Data Vital Signs Vital Signs: Vital Signs - 24 hr 11/06/24 09:10 11/06/24 09:10 11/06/24 10:00 Temperature Pulse Rate 63 63 68 Respiratory Rate 16 Blood Pressure Pulse Oximetry 99 Oxygen Delivery Mechanical Ventilation Fraction of Inspired Oxygen 30 11/06/24 10:00 11/06/24 10:00 11/06/24 10:00 Temperature 37.3 C Pulse Rate 68 68 68 Respiratory Rate 16 16 16 Blood Pressure 127/63 Pulse Oximetry 97 Oxygen Delivery Fraction of Inspired Oxygen 11/06/24 10:36 11/06/24 12:00 11/06/24 12:00 Temperature Pulse Rate 69 64 64 Respiratory Rate 16 16 Blood Pressure Pulse Oximetry 97 Oxygen Delivery Mechanical Ventilation Fraction of Inspired Oxygen 30 11/06/24 12:00 11/06/24 12:00 11/06/24 12:00 Temperature Pulse Rate 64 Respiratory Rate 16 Blood Pressure Pulse Oximetry Oxygen Delivery Mechanical Ventilation Fraction of Inspired Oxygen 30 30 11/06/24 12:00 11/06/24 12:00 11/06/24 13:52 Temperature 37.1 C Pulse Rate 63 64 65 Respiratory Rate 16 Blood Pressure 131/63 Pulse Oximetry 96 97 Oxygen Delivery Mechanical Ventilation Fraction of Inspired Oxygen 30 11/06/24 13:52 11/06/24 14:00 11/06/24 14:00 Temperature 36.9 C Pulse Rate 65 70 70 Respiratory Rate 16 16 Blood Pressure 157/55 H Pulse Oximetry 99 Oxygen Delivery Fraction of Inspired Oxygen 11/06/24 14:00 11/06/24 14:00 11/06/24 14:05 Temperature Pulse Rate 70 70 74 Respiratory Rate 16 16 16 Blood Pressure Pulse Oximetry Oxygen Delivery Fraction of Inspired Oxygen 11/06/24 15:58 11/06/24 15:59 11/06/24 16:00 Temperature Pulse Rate 74 Respiratory Rate Blood Pressure Pulse Oximetry Oxygen Delivery Mechanical Ventilation Fraction of Inspired Oxygen 30 30 11/06/24 16:00 11/06/24 16:00 11/06/24 16:00 Temperature 36.8 C Pulse Rate 70 70 70 Respiratory Rate 17 16 16 Blood Pressure 138/64 Pulse Oximetry 98 Oxygen Delivery Fraction of Inspired Oxygen 11/06/24 16:43 11/06/24 18:00 11/06/24 18:00 Temperature 36.8 C Pulse Rate 69 68 68 Respiratory Rate 16 Blood Pressure 114/58 L Pulse Oximetry 95 97 Oxygen Delivery Mechanical Ventilation Fraction of Inspired Oxygen 30 11/06/24 18:00 11/06/24 18:00 11/06/24 19:35 Temperature Pulse Rate 68 68 Respiratory Rate 16 16 Blood Pressure Pulse Oximetry Oxygen Delivery Fraction of Inspired Oxygen 30 11/06/24 19:35 11/06/24 20:00 11/06/24 20:00 Temperature 36.6 C Pulse Rate 67 66 64 Respiratory Rate 16 16 Blood Pressure 145/68 H Pulse Oximetry 100 99 Oxygen Delivery Mechanical Ventilation Fraction of Inspired Oxygen 30 11/06/24 20:00 11/06/24 20:00 11/06/24 20:18 Temperature Pulse Rate 76 66 66 Respiratory Rate 16 16 Blood Pressure Pulse Oximetry 96 Oxygen Delivery Mechanical Ventilation Fraction of Inspired Oxygen 30 11/06/24 20:19 11/06/24 20:30 11/06/24 20:45 Temperature 36.8 C Pulse Rate 66 66 65 Respiratory Rate 16 16 16 Blood Pressure Pulse Oximetry 96 Oxygen Delivery Fraction of Inspired Oxygen 11/06/24 21:20 11/06/24 21:30 11/06/24 21:31 Temperature 36.8 C 36.7 C 36.7 C Pulse Rate 65 67 65 Respiratory Rate 16 16 16 Blood Pressure 123/59 L Pulse Oximetry 96 93 97 Oxygen Delivery Fraction of Inspired Oxygen 11/06/24 21:45 11/06/24 22:00 11/06/24 22:00 Temperature 36.7 C Pulse Rate 73 76 76 Respiratory Rate 18 16 16 Blood Pressure Pulse Oximetry 100 Oxygen Delivery Fraction of Inspired Oxygen 11/06/24 22:00 11/06/24 22:12 11/06/24 22:15 Temperature 36.7 C 36.8 C Pulse Rate 98 115 H 115 H Respiratory Rate 22 H 19 Blood Pressure 159/89 H Pulse Oximetry 100 97 Oxygen Delivery Fraction of Inspired Oxygen 11/06/24 22:15 11/06/24 22:15 11/06/24 22:15 Temperature 36.8 C 36.8 C Pulse Rate 115 H 115 H 102 H Respiratory Rate 16 16 14 Blood Pressure 159/89 H Pulse Oximetry 98 98 Oxygen Delivery Fraction of Inspired Oxygen 11/06/24 22:30 11/06/24 22:31 11/06/24 22:45 Temperature 36.9 C 36.9 C 37.0 C Pulse Rate 95 97 91 Respiratory Rate 21 H 22 H 16 Blood Pressure 166/68 H Pulse Oximetry 97 100 98 Oxygen Delivery Fraction of Inspired Oxygen 11/06/24 23:00 11/06/24 23:01 11/06/24 23:10 Temperature 37.0 C 37.0 C Pulse Rate 87 85 88 Respiratory Rate 13 22 H 19 Blood Pressure 147/71 H Pulse Oximetry 97 98 Oxygen Delivery Fraction of Inspired Oxygen 11/06/24 23:15 11/06/24 23:23 11/06/24 23:30 Temperature 36.9 C 37.0 C Pulse Rate 85 66 84 Respiratory Rate 18 15 Blood Pressure Pulse Oximetry 100 96 97 Oxygen Delivery Mechanical Ventilation Fraction of Inspired Oxygen 30 11/06/24 23:31 11/07/24 00:00 11/07/24 00:00 Temperature 37.0 C Pulse Rate 83 75 Respiratory Rate 16 Blood Pressure 135/62 Pulse Oximetry 98 Oxygen Delivery Fraction of Inspired Oxygen 30 11/07/24 00:00 11/07/24 00:00 11/07/24 00:00 Temperature 36.9 C Pulse Rate 75 75 75 Respiratory Rate 16 16 16 Blood Pressure 121/50 L Pulse Oximetry 96 Oxygen Delivery Fraction of Inspired Oxygen 11/07/24 01:00 11/07/24 02:00 11/07/24 02:00 Temperature Pulse Rate 69 70 70 Respiratory Rate 16 17 17 Blood Pressure 131/94 H Pulse Oximetry 98 98 Oxygen Delivery Mechanical Ventilation Fraction of Inspired Oxygen 30 11/07/24 02:00 11/07/24 02:02 11/07/24 03:19 Temperature Pulse Rate 70 71 69 Respiratory Rate 16 17 Blood Pressure Pulse Oximetry Oxygen Delivery Fraction of Inspired Oxygen 11/07/24 04:00 11/07/24 04:00 11/07/24 04:00 Temperature Pulse Rate 74 74 76 Respiratory Rate 16 16 Blood Pressure Pulse Oximetry 97 Oxygen Delivery Mechanical Ventilation Fraction of Inspired Oxygen 30 11/07/24 04:00 11/07/24 04:00 11/07/24 04:46 Temperature 36.7 C Pulse Rate 74 73 Respiratory Rate 16 16 Blood Pressure 117/56 L Pulse Oximetry 97 Oxygen Delivery Fraction of Inspired Oxygen 30 11/07/24 04:46 11/07/24 05:14 11/07/24 05:30 Temperature Pulse Rate 73 66 65 Respiratory Rate 16 16 Blood Pressure Pulse Oximetry 96 Oxygen Delivery Mechanical Ventilation Fraction of Inspired Oxygen 30 11/07/24 06:00 11/07/24 06:00 11/07/24 06:12 Temperature 36.6 C Pulse Rate 65 65 64 Respiratory Rate 16 16 Blood Pressure 126/56 L Pulse Oximetry 99 Oxygen Delivery Fraction of Inspired Oxygen 11/07/24 06:13 11/07/24 08:00 11/07/24 08:00 Temperature Pulse Rate 63 64 60 Respiratory Rate 16 Blood Pressure Pulse Oximetry 100 Oxygen Delivery Mechanical Ventilation Fraction of Inspired Oxygen 30 11/07/24 08:00 11/07/24 08:00 Temperature 36.4 C Pulse Rate 59 L Respiratory Rate 16 Blood Pressure 145/74 H Pulse Oximetry 99 Oxygen Delivery Fraction of Inspired Oxygen 30 Intake/Output Intake/Output: Intake & Output 11/04/24 11/05/24 11/06/24 11/07/24 23:59 23:59 23:59 23:59 Intake Total 2041.4 2851.0 959.5 Output Total 1275 675 500 Balance 766.4 2176.0 459.5 Meds/Results Medications: Active Medications Generic Name Dose Route Start Last Admin Trade Name Abq PRN Reason Stop Dose Admin Acetaminophen 650 mg 11/05/24 01:33 Acetaminophen 650 Mg Suppository RECTAL Q6H PRN Mild Pain (1-3) or Fever Albuterol/Ipratropium 3 ml 11/07/24 08:06 Ipratropium 0.5 Mg/Albuterol Sulfate 2.5 Mg Ampul.Neb 3 Ml INHALATION Q6HRT PRN Wheezing Aspirin 81 mg 11/06/24 08:00 11/07/24 08:36 Aspirin 81 Mg Chewable Tablet PO 81 mg DAILY@0800 MILLA Administration Atorvastatin Calcium 40 mg 11/06/24 09:00 11/07/24 08:36 Atorvastatin 40 Mg Tablet PO 40 mg DAILY MILLA Administration Dexamethasone Sodium Phosphate 6 mg 11/05/24 01:25 11/07/24 08:37 Dexamethasone Sod Phos Inj 10 Mg/Ml 1 Ml Vial IV PUSH 11/14/24 09:01 6 mg DAILY MILLA Administration Dextrose 12.5 gm 11/07/24 08:06 Dextrose 50% 25 Gm/50 Ml Syringe IV PUSH PRN PRN Hypoglycemia Protocol Enoxaparin Sodium 40 mg 11/05/24 09:00 11/07/24 08:38 Enoxaparin 40 Mg/0.4 Ml Syringe SUB-Q 40 mg DAILY MILLA Administration Glucagon 1 mg 11/07/24 08:06 Glucagon For Inj 1 Mg Vial IM PRN PRN Hypoglycemia Protocol Glucose 15 gm 11/07/24 08:06 Glucose Oral Gel 15 Gm Of Glucse In 37.5 Gm Tube PO PRN PRN Hypoglycemia Protocol Hydralazine HCl 10 mg 11/05/24 10:47 Hydralazine Hcl 20 Mg/Ml Vial IV PUSH Q4H PRN Blood Pressure - High Ceftriaxone Sodium 2 gm in 100 mls @ 200 mls/hr 11/06/24 02:00 11/07/24 02:12 Rocephin 2 Gm/Ns 100 Ml IVPB Infused Q24H MILLA Infusion Remdesivir 100 mg in 250 mls @ 250 mls/hr 11/06/24 10:00 11/06/24 12:04 IVPB 11/09/24 10:59 Infused Q24H MILLA Infusion Fentanyl Citrate 2,500 mcg in 250 mls @ 12.5 mls/hr 11/05/24 05:05 11/07/24 06:12 Fentanyl 2,500 Mcg/Ns 250 Ml IV CONT 125 mcg/hr .Q20H MILLA 12.5 mls/hr Titration Protocol 125 MCG/HR Azithromycin 500 mg in 250 mls @ 250 mls/hr 11/06/24 03:00 11/07/24 03:13 Zithromax IVPB 11/11/24 02:59 250 mls/hr Q24H MILLA Administration Midazolam HCl 100 mg in 100 mls @ 5 mls/hr 11/06/24 05:45 11/07/24 06:13 Versed 100 Mg/Ns 100 Ml IV CONT 5 mg/hr .Q20H MILLA 5 mls/hr Titration Protocol 5 MG/HR Dextrose 1,000 mls @ 100 mls/hr 11/07/24 08:06 Dextrose 5% 1,000 Ml IVPB PRN PRN Hypoglycemia Protocol Albumin Human 100 mls @ 60 mls/hr 11/07/24 08:11 11/07/24 08:37 Albutein IVPB 11/07/24 09:50 60 mls/hr ONCE ONE Administration Insulin Aspart 3 - 6 units 11/07/24 09:00 Insulin Aspart (*Bkc) 100 Units/Ml SUB-Q Q4HR MILLA Protocol Multi-Ingred Cream/Lotion/Oil/Oint 1 applic 11/05/24 11:40 11/07/24 08:38 Mineral Oil/White Petrolatum Ointment EACH EYE 1 applic Q12HR MILLA Administration Ondansetron HCl 4 mg 11/05/24 01:33 Ondansetron Inj 4 Mg/2 Ml Vial IV PUSH Q4H PRN Nausea Pantoprazole Sodium 40 mg 11/05/24 09:00 11/07/24 08:37 Pantoprazole Sodium Iv 40 Mg Vial IV PUSH 40 mg QAM MILLA Administration Perflutren Lipid Microsphere 0 ml 11/05/24 04:48 Perflutren Lipid Microspheres 1.5 Ml Vial Diluted To 10 Ml Total Volume IV PUSH 11/08/24 04:49 ONCE PRN adequate visualization Protocol Radiology Results: ITS Impressions Chest/Abdomen/Pelvis CT 11/05/24 07:01 IMPRESSION: 1. Extensive patchy airspace consolidation, consistent with pneumonia. 2: Sclerotic lesion left femoral head, most likely benign bone island, although in the presence of enlarged prostate gland, metastatic disease secondary to prostate cancer should be considered. Head/Cervical Spine/Facial Bones CT 11/05/24 07:07 IMPRESSION: 1. No acute abnormality of the facial bones or cervical spine. 2: Severe cervical spondylosis. 3: Patchy upper lobe infiltrates, consistent with pneumonia. Head CT 11/05/24 07:11 IMPRESSION: 1. No acute intracranial abnormality. Abdomen X-Ray 11/05/24 07:19 IMPRESSION: 1: NG tube tip in the stomach. Carotid Doppler Study 11/06/24 15:13 IMPRESSION: 1. Less than 50% stenosis in the right internal carotid artery. 2. Less than 50% stenosis in the left internal carotid artery. Chest X-Ray 11/07/24 06:15 IMPRESSION: 1. Stable airspace opacities in the lower lung zones, consistent with pneumonia. Labs Labs: Laboratory Results - last 24 hr 11/06/24 11/06/24 11/07/24 16:01 16:06 04:37 WBC 6.5 RBC 3.84 L Hgb 12.7 L Hct 37.9 L MCV 98.7 MCH 33.1 MCHC 33.5 RDW 11.8 Plt Count 127 L MPV 10.5 H Immature Gran % (Auto) 0.6 H Neut % (Auto) 87.4 H Lymph % (Auto) 8.3 L [place] % (Auto) 3.7 Eos % (Auto) 0.0 Baso % (Auto) 0.0 L Lymph # (Auto) 0.54 L [place] # (Auto) 0.2 Eos # (Auto) 0.0 Baso # (Auto) 0.0 Abs Immat Gran (auto) 0.04 H Absolute Neuts (auto) 5.7 Absolute Nucleated RBC 0.000 Nucleated RBC % 0.0 % Immature Plt Fraction 3.7 PT 14.1 INR 1.1 Puncture Site ABG pH ABG pCO2 ABG pO2 ABG PO2/FiO2 Ratio ABG HCO3 ABG O2 Saturation ABG O2 Content ABG Base Excess A-a Gradient Oxyhemoglobin Carboxyhemoglobin Methemoglobin Reduced Hemoglobin Total Hemoglobin O2 Delivery Device O2 Liters/Min Minute Volume Vent Rate Vent Mode FiO2 Tidal Volume PEEP Peak Inspir Pressure Pressure Support Sodium 137 Potassium 3.8 Chloride 107 Carbon Dioxide 21 L Anion Gap 9 BUN 26 H Creatinine 1.04 Estim Creat Clear Calc 61 Estimated GFR > 60 Glucose 186 H Lactic Acid 2.5 H Calcium 8.1 L Phosphorus 2.5 Magnesium 2.0 Total Bilirubin 0.1 L AST 24 ALT 25 Alkaline Phosphatase 44 Total Protein 6.0 L Albumin 3.2 L Triglycerides 93 Vancomycin Trough 8.4 L 11/07/24 11/07/24 05:14 07:06 WBC RBC Hgb Hct MCV MCH MCHC RDW Plt Count MPV Immature Gran % (Auto) Neut % (Auto) Lymph % (Auto) [place] % (Auto) Eos % (Auto) Baso % (Auto) Lymph # (Auto) [place] # (Auto) Eos # (Auto) Baso # (Auto) Abs Immat Gran (auto) Absolute Neuts (auto) Absolute Nucleated RBC Nucleated RBC % % Immature Plt Fraction PT INR Puncture Site Right radial ABG pH 7.386 ABG pCO2 37.2 ABG pO2 92.2 ABG PO2/FiO2 Ratio 3.07 ABG HCO3 21.8 L ABG O2 Saturation 97.0 ABG O2 Content 18.1 ABG Base Excess -2.7 A-a Gradient 78.0 Oxyhemoglobin 96.4 Carboxyhemoglobin 0.4 Methemoglobin 0.1 Reduced Hemoglobin 3.1 Total Hemoglobin 13.3 O2 Delivery Device Ventilator O2 Liters/Min Not Reportable Minute Volume Not Reportable Vent Rate 16 Vent Mode Cmv FiO2 30 Tidal Volume 500 PEEP 5 Peak Inspir Pressure Not Reportable Pressure Support Not Reportable Sodium Potassium Chloride Carbon Dioxide Anion Gap BUN Creatinine Estim Creat Clear Calc Estimated GFR Glucose Lactic Acid 1.8 Calcium Phosphorus Magnesium Total Bilirubin AST ALT Alkaline Phosphatase Total Protein Albumin Triglycerides Vancomycin Trough Quality VTE Prophylaxis VTE prophylaxis: pharmacologic ordered
[2024-11-07 08:56] LABS: Glucose Point of Care 106 mg/dl (65-105)
[2024-11-07] MEDS: REMDESIVIR 100 MG/NS 250 ML 100 MG/250 ML BAG 250 MG IVPB (10:25)
[2024-11-07] MEDS: METOPROLOL SUCCINATE EXT REL 12.5 MG TABCR PO (11:03)
[2024-11-07 12:09] LABS: Alveolar/Arterial O2 Gradient 70.7 mmHg; Base Excess ABG -2.2 mEq/l (+/-2.0); Fractional Inspired Oxygen 30 %; HCO3 ABG 21.5 mEq/l (22.0-26.0); Oxygen Saturation ABG 97.9 % (95.0-100.0); PCO2 ABG 34.1 mmHg (35.0-45.0); PO2 ABG 103.1 mmHg (80.0-100.0); PO2 FiO2 Ratio Arterial Blood 3.44 %; Total Hemoglobin 14.6 g/dL (12.0-18.0); pH ABG 7.418 (7.350-7.450)
[2024-11-07 12:11] LABS: Modified Allen's Test Pass; Site Drawn RIGHT RADIAL
[2024-11-07 12:12] LABS: Arterial Blood Gas PEEP 5 cmH2O; Arterial Blood Gas Pressure Support 5 cmH2O; Arterial Blood Gas Vent Mode SPONTANEOUS; Device VENTILATOR
[2024-11-07 12:36] LABS: Glucose Point of Care 122 mg/dl (65-105)
[2024-11-07] MEDS: hydrALAZINE HCL 20 MG/ML VIAL 10 MG IV PUSH (13:42)
--- NOTE | 2024-11-07 15:37 | PM.IMPN ---
Progress Note: A&P Assessment and Plan (1) Acute respiratory failure with hypoxia: Code(s): J96.01 - Acute respiratory failure with hypoxia Status: Acute Assessment and Plan: Acute respiratory failure status post fall/syncope, agonal breathing, initially i-Gel (supraglottic airway) was inserted 11/05:Patient was intubated in the ER - chest x-ray and CT chest abdomen pelvis showed extensive patchy airspace consolidation consistent with pneumonia -SARS-CoV-2 PCR was positive -continue bronchodilators -chest x-ray with bilateral infiltrates in the right lower lobe and left lower lobe. 11/05: CT chest abdomen and pelvis 1. Extensive patchy airspace consolidation, consistent with pneumonia. 2: Sclerotic lesion left femoral head, most likely benign bone island, although in the presence of enlarged prostate gland, metastatic disease secondary to prostate cancer should be considered. Wean trial per greenkeeper (2) COVID-19: Code(s): U07.1 - COVID-19 Status: Acute Assessment and Plan: Patient tested positive for SARS-CoV-2 PCR PCR -pneumonia could be related to that or bacterial pneumonia -patient received a dose of tocilizumab in the ER -continue dexamethasone remdesivir (3) Pneumonia: Code(s): J18.9 - Pneumonia, unspecified organism Status: Acute Assessment and Plan: Extensive pneumonia seen on CT chest as above - continue azithromycin, ceftriaxone and vancomycin (11/05) -MRSA screen is negative -11/05: blood cultures negative x2 for -11/05: Sputum cultures obtained and (4) Elevated troponin: Code(s): R79.89 - Other specified abnormal findings of blood chemistry Status: Acute Assessment and Plan: Elevated troponins, initial EKG showed possible atrial flutter, LBBB -appreciate cardiology evaluation and recommendations, -continue aspirin and statin -elevated troponin could be related to type 2 infarct secondary to pneumonia, CAD, arrhythmias which could be related to syncopal episode, -ischemic evaluation depending on clinical course 11/05/2024: Echocardiogram Summary 1. Left ventricular chamber dimension is normal. 2. There is mildly increased left ventricular wall thickness. 3. Left ventricular systolic function is moderately reduced, estimated at 30-35%. 4. Global hypokinesis with more pronounced hypokinesis of the anteroseptum, mid inferoseptum, apex. 5. The left ventricular diastolic function is grade I diastolic dysfunction. 6. Right ventricular systolic function is normal. 7. Left atrial chamber dimension is moderately enlarged. 8. No significant valvular disease. (5) Syncope: Code(s): R55 - Syncope and collapse Status: Acute Assessment and Plan: Patient presented with fall could be related to syncope secondary to hypoxia, a cardiac arrhythmias as when patient arrived he was possible in atrial flutter, tachycardic -elevated troponins, could be related to coronary artery disease/type 2 infarct -echocardiogram as above -will obtain carotid Doppler 11/05:CT head on admission: No acute intracranial abnormality. 11/05: CT cervical spine/facial bones on admission: 1. No acute abnormality of the facial bones or cervical spine.2: Severe cervical spondylosis.3: Patchy upper lobe infiltrates, consistent with pneumonia. (6) Essential hypertension: Code(s): I10 - Essential (primary) hypertension Status: Acute Assessment and Plan: P.r.n. hydralazine (7) Hyperlipidemia: Code(s): E78.5 - Hyperlipidemia, unspecified Status: Acute Assessment and Plan: Continue atorvastatin Plan DVT prophylaxis: Enoxaparin Stress ulcer prophylaxis: Protonix Nutrition: Tolerating tube feeds Code Status: Full code Subjective Date/time seen: 11/07/24 15:37 Interval history: No overnight events. Patient going on a wean trial. Discussed the nursing staff. Review of Systems Review of Systems: ROS unobtainable: Yes unobtainable due to endotracheal tube Exam Narrative: General: In intubated and sedated, in no acute distress HEENT:? Pupils equal and reactive, sclera is clear, ETT in place Neck:? Cervical collar in place Respiratory:? velcro rales bilaterally, coarse breath sounds at bases, decreased air entry at bases with no wheezing Cardiac:? S1-S2 is normal, regular rate and rhythm, no murmurs Abdomen:? Soft, nontender, nondistended, normoactive bowel sounds Extremities:? No edema, palpable pedal pulses Neuro:? Patient is intubated, sedated, opens his eyes and follows simple commands in all extremities, nods to questions Skin:? No skin lesions noted Psych:? Unable to assess at this time Objective Data Vital Signs Vital Signs: Vital Signs - 24 hr 11/06/24 15:58 11/06/24 15:59 11/06/24 16:00 Temperature Pulse Rate 74 Respiratory Rate Blood Pressure Pulse Oximetry Oxygen Delivery Mechanical Ventilation Oxygen Flow Rate Fraction of Inspired Oxygen 30 30 11/06/24 16:00 11/06/24 16:00 11/06/24 16:00 Temperature 98.3 F Pulse Rate 70 70 70 Respiratory Rate 17 16 16 Blood Pressure 138/64 Pulse Oximetry 98 Oxygen Delivery Oxygen Flow Rate Fraction of Inspired Oxygen 11/06/24 16:43 11/06/24 18:00 11/06/24 18:00 Temperature 98.3 F Pulse Rate 69 68 68 Respiratory Rate 16 Blood Pressure 114/58 L Pulse Oximetry 95 97 Oxygen Delivery Mechanical Ventilation Oxygen Flow Rate Fraction of Inspired Oxygen 30 11/06/24 18:00 11/06/24 18:00 11/06/24 19:35 Temperature Pulse Rate 68 68 Respiratory Rate 16 16 Blood Pressure Pulse Oximetry Oxygen Delivery Oxygen Flow Rate Fraction of Inspired Oxygen 30 11/06/24 19:35 11/06/24 20:00 11/06/24 20:00 Temperature 98 F Pulse Rate 67 66 64 Respiratory Rate 16 16 Blood Pressure 145/68 H Pulse Oximetry 100 99 Oxygen Delivery Mechanical Ventilation Oxygen Flow Rate Fraction of Inspired Oxygen 30 11/06/24 20:00 11/06/24 20:00 11/06/24 20:18 Temperature Pulse Rate 76 66 66 Respiratory Rate 16 16 Blood Pressure Pulse Oximetry 96 Oxygen Delivery Mechanical Ventilation Oxygen Flow Rate Fraction of Inspired Oxygen 30 11/06/24 20:19 11/06/24 20:30 11/06/24 20:45 Temperature 98.3 F Pulse Rate 66 66 65 Respiratory Rate 16 16 16 Blood Pressure Pulse Oximetry 96 Oxygen Delivery Oxygen Flow Rate Fraction of Inspired Oxygen 11/06/24 21:20 11/06/24 21:30 11/06/24 21:31 Temperature 98.2 F 98.1 F 98.1 F Pulse Rate 65 67 65 Respiratory Rate 16 16 16 Blood Pressure 123/59 L Pulse Oximetry 96 93 97 Oxygen Delivery Oxygen Flow Rate Fraction of Inspired Oxygen 11/06/24 21:45 11/06/24 22:00 11/06/24 22:00 Temperature 98.1 F Pulse Rate 73 76 76 Respiratory Rate 18 16 16 Blood Pressure Pulse Oximetry 100 Oxygen Delivery Oxygen Flow Rate Fraction of Inspired Oxygen 11/06/24 22:00 11/06/24 22:12 11/06/24 22:15 Temperature 98.0 F 98.3 F Pulse Rate 98 115 H 115 H Respiratory Rate 22 H 19 Blood Pressure 159/89 H Pulse Oximetry 100 97 Oxygen Delivery Oxygen Flow Rate Fraction of Inspired Oxygen 11/06/24 22:15 11/06/24 22:15 11/06/24 22:15 Temperature 98.3 F 98.3 F Pulse Rate 115 H 115 H 102 H Respiratory Rate 16 16 14 Blood Pressure 159/89 H Pulse Oximetry 98 98 Oxygen Delivery Oxygen Flow Rate Fraction of Inspired Oxygen 11/06/24 22:30 11/06/24 22:31 11/06/24 22:45 Temperature 98.5 F 98.5 F 98.6 F Pulse Rate 95 97 91 Respiratory Rate 21 H 22 H 16 Blood Pressure 166/68 H Pulse Oximetry 97 100 98 Oxygen Delivery Oxygen Flow Rate Fraction of Inspired Oxygen 11/06/24 23:00 11/06/24 23:01 11/06/24 23:10 Temperature 98.6 F 98.6 F Pulse Rate 87 85 88 Respiratory Rate 13 22 H 19 Blood Pressure 147/71 H Pulse Oximetry 97 98 Oxygen Delivery Oxygen Flow Rate Fraction of Inspired Oxygen 11/06/24 23:15 11/06/24 23:23 11/06/24 23:30 Temperature 98.5 F 98.6 F Pulse Rate 85 66 84 Respiratory Rate 18 15 Blood Pressure Pulse Oximetry 100 96 97 Oxygen Delivery Mechanical Ventilation Oxygen Flow Rate Fraction of Inspired Oxygen 30 11/06/24 23:31 11/07/24 00:00 11/07/24 00:00 Temperature 98.6 F Pulse Rate 83 75 Respiratory Rate 16 Blood Pressure 135/62 Pulse Oximetry 98 Oxygen Delivery Oxygen Flow Rate Fraction of Inspired Oxygen 30 11/07/24 00:00 11/07/24 00:00 11/07/24 00:00 Temperature 98.5 F Pulse Rate 75 75 75 Respiratory Rate 16 16 16 Blood Pressure 121/50 L Pulse Oximetry 96 Oxygen Delivery Oxygen Flow Rate Fraction of Inspired Oxygen 11/07/24 01:00 11/07/24 02:00 11/07/24 02:00 Temperature Pulse Rate 69 70 70 Respiratory Rate 16 17 17 Blood Pressure 131/94 H Pulse Oximetry 98 98 Oxygen Delivery Mechanical Ventilation Oxygen Flow Rate Fraction of Inspired Oxygen 30 11/07/24 02:00 11/07/24 02:02 11/07/24 03:19 Temperature Pulse Rate 70 71 69 Respiratory Rate 16 17 Blood Pressure Pulse Oximetry Oxygen Delivery Oxygen Flow Rate Fraction of Inspired Oxygen 11/07/24 04:00 11/07/24 04:00 11/07/24 04:00 Temperature Pulse Rate 74 74 76 Respiratory Rate 16 16 Blood Pressure Pulse Oximetry 97 Oxygen Delivery Mechanical Ventilation Oxygen Flow Rate Fraction of Inspired Oxygen 30 11/07/24 04:00 11/07/24 04:00 11/07/24 04:46 Temperature 98.1 F Pulse Rate 74 73 Respiratory Rate 16 16 Blood Pressure 117/56 L Pulse Oximetry 97 Oxygen Delivery Oxygen Flow Rate Fraction of Inspired Oxygen 30 11/07/24 04:46 11/07/24 05:14 11/07/24 05:30 Temperature Pulse Rate 73 66 65 Respiratory Rate 16 16 Blood Pressure Pulse Oximetry 96 Oxygen Delivery Mechanical Ventilation Oxygen Flow Rate Fraction of Inspired Oxygen 30 11/07/24 06:00 11/07/24 06:00 11/07/24 06:12 Temperature 97.9 F Pulse Rate 65 65 64 Respiratory Rate 16 16 Blood Pressure 126/56 L Pulse Oximetry 99 Oxygen Delivery Oxygen Flow Rate Fraction of Inspired Oxygen 11/07/24 06:13 11/07/24 08:00 11/07/24 08:00 Temperature Pulse Rate 63 64 60 Respiratory Rate 16 Blood Pressure Pulse Oximetry 100 Oxygen Delivery Mechanical Ventilation Oxygen Flow Rate Fraction of Inspired Oxygen 30 11/07/24 08:00 11/07/24 08:00 11/07/24 08:00 Temperature 97.6 F Pulse Rate 59 L 63 Respiratory Rate 16 16 Blood Pressure 145/74 H Pulse Oximetry 99 Oxygen Delivery Oxygen Flow Rate Fraction of Inspired Oxygen 30 11/07/24 08:00 11/07/24 08:43 11/07/24 08:43 Temperature Pulse Rate 61 60 60 Respiratory Rate 16 16 Blood Pressure Pulse Oximetry 100 Oxygen Delivery Mechanical Ventilation Oxygen Flow Rate Fraction of Inspired Oxygen 30 11/07/24 08:58 11/07/24 09:23 11/07/24 09:25 Temperature Pulse Rate 64 64 59 L Respiratory Rate 16 11 L Blood Pressure Pulse Oximetry 100 Oxygen Delivery Mechanical Ventilation Oxygen Flow Rate Fraction of Inspired Oxygen 30 11/07/24 09:25 11/07/24 09:42 11/07/24 10:00 Temperature 98.5 F Pulse Rate 67 68 67 Respiratory Rate 11 L 16 Blood Pressure 148/66 H Pulse Oximetry 96 99 Oxygen Delivery Mechanical Ventilation Oxygen Flow Rate Fraction of Inspired Oxygen 30 11/07/24 10:00 11/07/24 10:00 11/07/24 10:00 Temperature Pulse Rate 95 70 71 Respiratory Rate 12 11 L Blood Pressure Pulse Oximetry Oxygen Delivery Oxygen Flow Rate Fraction of Inspired Oxygen 11/07/24 11:02 11/07/24 11:03 11/07/24 11:57 Temperature Pulse Rate 66 72 80 Respiratory Rate Blood Pressure Pulse Oximetry 98 Oxygen Delivery Mechanical Ventilation Oxygen Flow Rate Fraction of Inspired Oxygen 30 11/07/24 12:00 11/07/24 12:00 11/07/24 12:00 Temperature 98.4 F Pulse Rate 77 78 68 Respiratory Rate 12 13 Blood Pressure 157/95 H Pulse Oximetry 97 99 Oxygen Delivery Mechanical Ventilation Oxygen Flow Rate Fraction of Inspired Oxygen 11/07/24 12:00 11/07/24 12:15 11/07/24 12:17 Temperature Pulse Rate 78 98 Respiratory Rate 12 12 Blood Pressure Pulse Oximetry 95 98 Oxygen Delivery Nasal Cannula Nasal Cannula Oxygen Flow Rate 2 2 Fraction of Inspired Oxygen 28 11/07/24 12:44 11/07/24 12:45 11/07/24 14:00 Temperature Pulse Rate 72 72 86 Respiratory Rate 18 18 Blood Pressure Pulse Oximetry Oxygen Delivery Oxygen Flow Rate Fraction of Inspired Oxygen 11/07/24 14:00 Temperature 98.4 F Pulse Rate 86 Respiratory Rate 12 Blood Pressure 183/73 H Pulse Oximetry 96 Oxygen Delivery Oxygen Flow Rate Fraction of Inspired Oxygen Intake/Output Intake/Output: Intake & Output 11/04/24 11/05/24 11/06/24 11/07/24 23:59 23:59 23:59 23:59 Intake Total 2041.4 2851.0 1865.7 Output Total 6186 708 8627 Balance 766.4 2176.0 -1034.3 Meds/Results Medications: Active Medications Generic Name Dose Route Start Last Admin Trade Name Freq PRN Reason Stop Dose Admin Acetaminophen 650 mg 11/05/24 01:33 Acetaminophen 650 Mg Suppository RECTAL Q6H PRN Mild Pain (1-3) or Fever Albuterol/Ipratropium 3 ml 11/07/24 08:06 11/07/24 08:43 Ipratropium 0.5 Mg/Albuterol Sulfate 2.5 Mg Ampul.Neb 3 Ml INHALATION 3 ml Q6HRT PRN Administration Wheezing Aspirin 81 mg 11/06/24 08:00 11/07/24 08:36 Aspirin 81 Mg Chewable Tablet PO 81 mg DAILY@0800 MILLA Administration Atorvastatin Calcium 40 mg 11/06/24 09:00 11/07/24 08:36 Atorvastatin 40 Mg Tablet PO 40 mg DAILY MILLA Administration Dexamethasone Sodium Phosphate 6 mg 11/05/24 01:25 11/07/24 08:37 Dexamethasone Sod Phos Inj 10 Mg/Ml 1 Ml Vial IV PUSH 11/14/24 09:01 6 mg DAILY MILLA Administration Dextrose 12.5 gm 11/07/24 08:06 Dextrose 50% 25 Gm/50 Ml Syringe IV PUSH PRN PRN Hypoglycemia Protocol Enoxaparin Sodium 40 mg 11/05/24 09:00 11/07/24 08:38 Enoxaparin 40 Mg/0.4 Ml Syringe SUB-Q 40 mg DAILY MILLA Administration Glucagon 1 mg 11/07/24 08:06 Glucagon For Inj 1 Mg Vial IM PRN PRN Hypoglycemia Protocol Glucose 15 gm 11/07/24 08:06 Glucose Oral Gel 15 Gm Of Glucse In 37.5 Gm Tube PO PRN PRN Hypoglycemia Protocol Hydralazine HCl 10 mg 11/05/24 10:47 11/07/24 13:42 Hydralazine Hcl 20 Mg/Ml Vial IV PUSH 10 mg Q4H PRN Administration Blood Pressure - High Ceftriaxone Sodium 2 gm in 100 mls @ 200 mls/hr 11/06/24 02:00 11/07/24 02:12 Rocephin 2 Gm/Ns 100 Ml IVPB Infused Q24H MILLA Infusion Remdesivir 100 mg in 250 mls @ 250 mls/hr 11/06/24 10:00 11/07/24 11:25 IVPB 11/09/24 10:59 Infused Q24H MILLA Infusion Azithromycin 500 mg in 250 mls @ 250 mls/hr 11/06/24 03:00 11/07/24 03:13 Zithromax IVPB 11/10/24 02:59 250 mls/hr Q24H MILLA Administration Dextrose 1,000 mls @ 100 mls/hr 11/07/24 08:06 Dextrose 5% 1,000 Ml IVPB PRN PRN Hypoglycemia Protocol Insulin Aspart 3 - 6 units 11/07/24 09:00 11/07/24 12:38 Insulin Aspart (*Bkc) 100 Units/Ml SUB-Q Not Given Q4HR MILLA Protocol Metoprolol Succinate 12.5 mg 11/07/24 10:15 11/07/24 11:03 Metoprolol Succinate Ext Rel 12.5 Mg Tabcr PO 12.5 mg QAM MILLA Administration Ondansetron HCl 4 mg 11/05/24 01:33 Ondansetron Inj 4 Mg/2 Ml Vial IV PUSH Q4H PRN Nausea Pantoprazole Sodium 40 mg 11/05/24 09:00 11/07/24 08:37 Pantoprazole Sodium Iv 40 Mg Vial IV PUSH 40 mg QAM MILLA Administration Perflutren Lipid Microsphere 0 ml 11/05/24 04:48 Perflutren Lipid Microspheres 1.5 Ml Vial Diluted To 10 Ml Total Volume IV PUSH 11/08/24 04:49 ONCE PRN adequate visualization Protocol Sacubitril/Valsartan 1 tab 11/07/24 21:00 Sacubitril/Valsartan 24-26 Mg Tablet PO Q12HR [facility] Radiology Results: ITS Impressions Chest/Abdomen/Pelvis CT 11/05/24 07:01 IMPRESSION: 1. Extensive patchy airspace consolidation, consistent with pneumonia. 2: Sclerotic lesion left femoral head, most likely benign bone island, although in the presence of enlarged prostate gland, metastatic disease secondary to prostate cancer should be considered. Head/Cervical Spine/Facial Bones CT 11/05/24 07:07 IMPRESSION: 1. No acute abnormality of the facial bones or cervical spine. 2: Severe cervical spondylosis. 3: Patchy upper lobe infiltrates, consistent with pneumonia. Head CT 11/05/24 07:11 IMPRESSION: 1. No acute intracranial abnormality. Abdomen X-Ray 11/05/24 07:19 IMPRESSION: 1: NG tube tip in the stomach. Carotid Doppler Study 11/06/24 15:13 IMPRESSION: 1. Less than 50% stenosis in the right internal carotid artery. 2. Less than 50% stenosis in the left internal carotid artery. Chest X-Ray 11/07/24 06:15 IMPRESSION: 1. Stable airspace opacities in the lower lung zones, consistent with pneumonia. Labs Labs: Laboratory Results - last 24 hr 11/06/24 11/06/24 11/07/24 16:01 16:06 04:37 WBC 6.5 RBC 3.84 L Hgb 12.7 L Hct 37.9 L MCV 98.7 MCH 33.1 MCHC 33.5 RDW 11.8 Plt Count 127 L MPV 10.5 H Immature Gran % (Auto) 0.6 H Neut % (Auto) 87.4 H Lymph % (Auto) 8.3 L [place] % (Auto) 3.7 Eos % (Auto) 0.0 Baso % (Auto) 0.0 L Lymph # (Auto) 0.54 L [place] # (Auto) 0.2 Eos # (Auto) 0.0 Baso # (Auto) 0.0 Abs Immat Gran (auto) 0.04 H Absolute Neuts (auto) 5.7 Absolute Nucleated RBC 0.000 Nucleated RBC % 0.0 % Immature Plt Fraction 3.7 PT 14.1 INR 1.1 Puncture Site ABG pH ABG pCO2 ABG pO2 ABG PO2/FiO2 Ratio ABG HCO3 ABG O2 Saturation ABG O2 Content ABG Base Excess A-a Gradient Oxyhemoglobin Carboxyhemoglobin Methemoglobin Reduced Hemoglobin Total Hemoglobin O2 Delivery Device O2 Liters/Min Minute Volume Vent Rate Vent Mode FiO2 Tidal Volume PEEP Peak Inspir Pressure Pressure Support Sodium 137 Potassium 3.8 Chloride 107 Carbon Dioxide 21 L Anion Gap 9 BUN 26 H Creatinine 1.04 Estim Creat Clear Calc 61 Estimated GFR > 60 Glucose 186 H POC Capillary Glucose Lactic Acid 2.5 H Calcium 8.1 L Phosphorus 2.5 Magnesium 2.0 Total Bilirubin 0.1 L AST 24 ALT 25 Alkaline Phosphatase 44 Total Protein 6.0 L Albumin 3.2 L Triglycerides 93 Vancomycin Trough 8.4 L 11/07/24 11/07/24 11/07/24 05:14 07:06 08:44 WBC RBC Hgb Hct MCV MCH MCHC RDW Plt Count MPV Immature Gran % (Auto) Neut % (Auto) Lymph % (Auto) [place] % (Auto) Eos % (Auto) Baso % (Auto) Lymph # (Auto) [place] # (Auto) Eos # (Auto) Baso # (Auto) Abs Immat Gran (auto) Absolute Neuts (auto) Absolute Nucleated RBC Nucleated RBC % % Immature Plt Fraction PT INR Puncture Site Right radial ABG pH 7.386 ABG pCO2 37.2 ABG pO2 92.2 ABG PO2/FiO2 Ratio 3.07 ABG HCO3 21.8 L ABG O2 Saturation 97.0 ABG O2 Content 18.1 ABG Base Excess -2.7 A-a Gradient 78.0 Oxyhemoglobin 96.4 Carboxyhemoglobin 0.4 Methemoglobin 0.1 Reduced Hemoglobin 3.1 Total Hemoglobin 13.3 O2 Delivery Device Ventilator O2 Liters/Min Not Reportable Minute Volume Not Reportable Vent Rate 16 Vent Mode Cmv FiO2 30 Tidal Volume 500 PEEP 5 Peak Inspir Pressure Not Reportable Pressure Support Not Reportable Sodium Potassium Chloride Carbon Dioxide Anion Gap BUN Creatinine Estim Creat Clear Calc Estimated GFR Glucose POC Capillary Glucose 106 H Lactic Acid 1.8 Calcium Phosphorus Magnesium Total Bilirubin AST ALT Alkaline Phosphatase Total Protein Albumin Triglycerides Vancomycin Trough 11/07/24 11/07/24 12:07 12:17 WBC RBC Hgb Hct MCV MCH MCHC RDW Plt Count MPV Immature Gran % (Auto) Neut % (Auto) Lymph % (Auto) [place] % (Auto) Eos % (Auto) Baso % (Auto) Lymph # (Auto) [place] # (Auto) Eos # (Auto) Baso # (Auto) Abs Immat Gran (auto) Absolute Neuts (auto) Absolute Nucleated RBC Nucleated RBC % % Immature Plt Fraction PT INR Puncture Site Right radial ABG pH 7.418 ABG pCO2 34.1 L ABG pO2 103.1 H ABG PO2/FiO2 Ratio 3.44 ABG HCO3 21.5 L ABG O2 Saturation 97.9 ABG O2 Content 20.0 ABG Base Excess -2.2 A-a Gradient 70.7 Oxyhemoglobin 97.0 Carboxyhemoglobin Methemoglobin Reduced Hemoglobin Total Hemoglobin 14.6 O2 Delivery Device Ventilator O2 Liters/Min Not Reportable Minute Volume Not Reportable Vent Rate Not Reportable Vent Mode Spontaneous FiO2 30 Tidal Volume Not Reportable PEEP 5 Peak Inspir Pressure Not Reportable Pressure Support 5 Sodium Potassium Chloride Carbon Dioxide Anion Gap BUN Creatinine Estim Creat Clear Calc Estimated GFR Glucose POC Capillary Glucose 122 H Lactic Acid Calcium Phosphorus Magnesium Total Bilirubin AST ALT Alkaline Phosphatase Total Protein Albumin Triglycerides Vancomycin Trough
[2024-11-07] MEDS: SACUBITRIL/VALSARTAN 24-26 MG TABLET 1 TAB PO (15:48)
[2024-11-07] MEDS: ONDANSETRON INJ 4 MG/2 ML VIAL IV PUSH (15:53)
[2024-11-07] MEDS: niCARdipine 20 MG/200 ML 20 MG/200 ML BAG 50 MG IV CONT (16:30)
[2024-11-07] MEDS: LABETALOL HCL INJ 100 MG/20 ML VIAL 20 MG IV PUSH (16:33)
[2024-11-07 16:43] LABS: Pneumococcal Antigen Urine NOT DETECTED
[2024-11-07 16:49] LABS: Glucose Point of Care 144 mg/dl (65-105)
[2024-11-07 20:26] LABS: Glucose Point of Care 146 mg/dl (65-105)
[2024-11-08] VITALS (37 sets, daily range): BP systolic 126–177; BP diastolic 62–96; PULSE 66–105; RESP 10–25; TEMP 36.8–37.6; O2SAT 94–100
[2024-11-08 00:22] LABS: Glucose Point of Care 129 mg/dl (65-105)
[2024-11-08 01:18] LABS: Legionella pneumophila Ag Ur NOT DETECTED
[2024-11-08] MEDS: cefTRIAXone 2 GM/NS 100 ML 2 GM/100 ML BAG IVPB (02:35)
[2024-11-08] MEDS: AZITHROMYCIN 500 MG/NS 250 ML 500 MG/250 ML BAG 250 MG IVPB (03:11)
[2024-11-08] MEDS: ACETAMINOPHEN 650 MG SUPPOSITORY RECTAL (04:27)
[2024-11-08 04:29] LABS: Basophils Percent Auto 0.2 % (0.2-1.2); Hematocrit 47.2 % (42.0-52.0); Hemoglobin 16.2 g/dL (14.0-18.0); Immature Granulocyte Absolute 0.11 K/mm3 (0.00-0.031); Immature Granulocyte Percent A 0.8 % (0-0.5); Lymphocytes Absolute Auto 1.98 K/mm3 (0.9-3.2); Lymphocytes Percent Auto 13.7 % (18.3-44.2); Mean Corpuscular HGB Conc 34.3 g/dl (32-36); Mean Corpuscular Hemoglobin 32.7 pg (26-34); Mean Corpuscular Volume 95.4 fl (80-100); Mean Platelet Volume 10.2 fl (7.4-10.4); Monocytes Absolute Auto 1.2 K/mm3 (0.1-0.6); Monocytes Percent Auto 8.1 % (2.6-8.5); Neutrophils Absolute Auto 11.2 K/mm3 (1.3-6.7); Neutrophils Percent Auto 77.2 % (45.5-73.1); Platelet Count Result 227 k/mm3 (150-375); Red Blood Count 4.95 M/mm3 (4.6-6.20); Red Cell Distribution Width 11.8 % (11.5-14.5); White Blood Count 14.4 K/mm3 (4.5-10.0)
[2024-11-08 04:44] LABS: Alanine Aminotransferase 31 U/L (6-50); Albumin Level 4.6 g/dL (3.5-5.1); Alkaline Phosphatase 56 U/L (38-126); Anion Gap 13 mmol/L (4-12); Aspartate Amino Transferase 31 U/L (17-59); Bilirubin,Total 0.5 mg/dL (0.2-1.3); Blood Urea Nitrogen 26 mg/dL (9-20); Calcium 9.4 mg/dL (8.4-10.2); Carbon Dioxide 23 mmol/L (22-30); Chloride 102 mmol/L (98-107); Estimated CRCL calculation 62 ml/min; Estimated Glomerular Filt Rate > 60; Glucose 118 mg/dL (65-110); Magnesium 2.2 mg/dL (1.6-2.3); Phosphorus 3.4 mg/dL (2.5-4.5); Potassium 4.5 mmol/L (3.4-5.0); Sodium 138 mmol/L (137-145)
[2024-11-08] MEDS: hydrALAZINE HCL 20 MG/ML VIAL 10 MG IV PUSH (05:39)
--- NOTE | 2024-11-08 05:47 | PC.NURSE ---
Dr Williamson made aware of azithromycin infiltrating approx 100mls into through shoulder IV. Britney in pharmacy was called and no specail precautions recommended. Order received to alternate ice and heat on site.
--- NOTE | 2024-11-08 07:19 | P.PNCA_ITS ---
Progress Note: A&P Assessment and Plan (1) Elevated troponin: Code(s): R79.89 - Other specified abnormal findings of blood chemistry Status: Acute Plan 1. Elevated troponin level 2. Intermittent LBBB 3. Acute hypoxic respiratory failure requiring mechanical ventilation 4. Syncopal episode 5. COVID pneumonia 6. Heart failure with reduced LVEF of 30-35% per TTE 11/05 PLAN: -Elevated troponins probably due to demand ischemia in setting of acute hypoxic respiratory failure, COVID pneumonia. However, echo shows LVEF 30-35%, global hypokinesis with more pronounced hypokinesis of the anteroseptum, mid inferoseptum, apex. Given these findings, will plan for ischemic evaluation once he has recovered more. He states he has had both a stress test and coronary angiogram at [facility] in the past which reportedly were negative. He does not remember exactly when these tests were done but he thinks greater than 10 years ago. He denies any chest pain prior to hospital admission. However, may still consider [facility] prior to discharge to rule out ischemic etiology of his cardiomyopathy. -Continue ASA 81mg once daily and high intensity statin. -Given reduced LVEF, will slowly introduce GDMT. -Continue ToprolXL 12.5mg daily -Continue Entresto 24-26mg b.i.d. -Add spironolactone 25mg daily -EKG on admission shows heart rate of 140bpm, possibly fast sinus, cannot rule out atrial flutter, LBBB. Telemetry since admission shows sinus rhythm with narrow QRS, today has had some bigeminy and PVC's. Continue to monitor on tele. Given syncopal event prior to admission, recommend 30 day event monitor at time of discharge. Subjective Date/time seen: 11/08/24 07:19 Interval history: Reason for visit: Elevated troponin HPI: We are consulted for elevated troponin. Unable to obtain any history from the patient as he is intubated and sedated, therefore, history obtained from the medical chart and medical team; no family at bedside to provide history. Renaldo is a 74 year old male with hyperlipidemia and GERD who presented to [facility] after he was found unresponsive after a fall. Reportedly had fever, aches, cough, shortness of breath with exertion over past couple of days, along with poor appetite. heard a thud and found him on the floor. He was still breathing, but unresponsive. Upon EMS arrival, he had agonal respirations, and a supraglottic airway was inserted. EKG on admission shows heart rate of 140bpm, possibly fast sinus, cannot rule out atrial flutter, LBBB. Telemetry since admission shows sinus rhythm with narrow QRS. Initial troponin negative, increased to 0.406. NT pro BNP mildly elevated at 372. COVID positive. Chest CT shows extensive patchy airspace consolidation, consistent with pneumonia. Date of service 11/06: Remains intubated. Tele with occasional PVCs, no recurrence of LBBB. Date of service : He was extubated yesterday, stable overall. Review of Systems Review of Systems: ROS unobtainable: Yes unobtainable due to endotracheal tube and unobtainable due to medical condition Exam Const: General: comfortable and no acute distress HENMT: Head: normal to inspection Other: OETT in place Eyes: General: appearance normal, both eyes and all related structures Neck: Neck: normal visual inspection Resp: Effort & Inspection: normal respiratory effort Cardio: Rate: regular rate Rhythm: regular rhythm Heart sounds: no murmurs Neuro: General: patient oriented x3 Extrem: General: no edema Psych: Appearance: grossly normal Mental Status: mental status grossly normal Objective Data Vital Signs Vital Signs: Vital Signs - 24 hr 11/07/24 08:00 11/07/24 08:00 11/07/24 08:00 Temperature Pulse Rate 64 60 Respiratory Rate Blood Pressure Pulse Oximetry 100 Oxygen Delivery Mechanical Ventilation Oxygen Flow Rate Fraction of Inspired Oxygen 30 30 11/07/24 08:00 11/07/24 08:00 11/07/24 08:00 Temperature 36.4 C Pulse Rate 59 L 63 61 Respiratory Rate 16 16 16 Blood Pressure 145/74 H Pulse Oximetry 99 Oxygen Delivery Oxygen Flow Rate Fraction of Inspired Oxygen 11/07/24 08:43 11/07/24 08:43 11/07/24 08:58 Temperature Pulse Rate 60 60 64 Respiratory Rate 16 16 Blood Pressure Pulse Oximetry 100 Oxygen Delivery Mechanical Ventilation Oxygen Flow Rate Fraction of Inspired Oxygen 30 11/07/24 09:23 11/07/24 09:25 11/07/24 09:25 Temperature Pulse Rate 64 59 L 67 Respiratory Rate 11 L 11 L Blood Pressure Pulse Oximetry 100 Oxygen Delivery Mechanical Ventilation Oxygen Flow Rate Fraction of Inspired Oxygen 30 11/07/24 09:42 11/07/24 10:00 11/07/24 10:00 Temperature 36.9 C Pulse Rate 68 67 95 Respiratory Rate 16 Blood Pressure 148/66 H Pulse Oximetry 96 99 Oxygen Delivery Mechanical Ventilation Oxygen Flow Rate Fraction of Inspired Oxygen 30 11/07/24 10:00 11/07/24 10:00 11/07/24 11:02 Temperature Pulse Rate 70 71 66 Respiratory Rate 12 11 L Blood Pressure Pulse Oximetry 98 Oxygen Delivery Mechanical Ventilation Oxygen Flow Rate Fraction of Inspired Oxygen 30 11/07/24 11:03 11/07/24 11:57 11/07/24 12:00 Temperature 36.9 C Pulse Rate 72 80 77 Respiratory Rate 12 Blood Pressure 157/95 H Pulse Oximetry 97 Oxygen Delivery Oxygen Flow Rate Fraction of Inspired Oxygen 11/07/24 12:00 11/07/24 12:00 11/07/24 12:00 Temperature Pulse Rate 78 68 78 Respiratory Rate 13 12 Blood Pressure Pulse Oximetry 99 Oxygen Delivery Mechanical Ventilation Oxygen Flow Rate Fraction of Inspired Oxygen 11/07/24 12:15 11/07/24 12:17 11/07/24 12:44 Temperature Pulse Rate 98 72 Respiratory Rate 12 18 Blood Pressure Pulse Oximetry 95 98 Oxygen Delivery Nasal Cannula Nasal Cannula Oxygen Flow Rate 2 2 Fraction of Inspired Oxygen 28 11/07/24 12:45 11/07/24 14:00 11/07/24 14:00 Temperature 36.9 C Pulse Rate 72 86 86 Respiratory Rate 18 12 Blood Pressure 183/73 H Pulse Oximetry 96 Oxygen Delivery Oxygen Flow Rate Fraction of Inspired Oxygen 11/07/24 15:37 11/07/24 16:00 11/07/24 16:00 Temperature 36.9 C 36.9 C Pulse Rate 85 95 97 Respiratory Rate 12 15 Blood Pressure 186/89 H 203/99 H Pulse Oximetry 98 98 Oxygen Delivery Oxygen Flow Rate Fraction of Inspired Oxygen 11/07/24 16:00 11/07/24 16:18 11/07/24 16:30 Temperature Pulse Rate 79 99 99 Respiratory Rate 13 14 Blood Pressure 203/99 H 197/106 H Pulse Oximetry 97 95 Oxygen Delivery Nasal Cannula Nasal Cannula Oxygen Flow Rate 1 1 Fraction of Inspired Oxygen 11/07/24 16:33 11/07/24 16:45 11/07/24 17:00 Temperature Pulse Rate 101 H 83 80 Respiratory Rate Blood Pressure 165/75 H 153/74 H Pulse Oximetry Oxygen Delivery Oxygen Flow Rate Fraction of Inspired Oxygen 11/07/24 17:15 11/07/24 17:30 11/07/24 18:00 Temperature Pulse Rate 81 82 83 Respiratory Rate Blood Pressure 142/67 H 141/77 H Pulse Oximetry Oxygen Delivery Oxygen Flow Rate Fraction of Inspired Oxygen 11/07/24 18:00 11/07/24 18:00 11/07/24 18:30 Temperature 37.1 C Pulse Rate 83 85 86 Respiratory Rate 16 Blood Pressure 150/74 H 142/67 H 135/64 Pulse Oximetry 15 L Oxygen Delivery Oxygen Flow Rate Fraction of Inspired Oxygen 11/07/24 19:00 11/07/24 19:01 11/07/24 19:15 Temperature 37.1 C 37.1 C 37.1 C Pulse Rate 77 81 73 Respiratory Rate 18 16 14 Blood Pressure 147/64 H Pulse Oximetry 96 97 94 Oxygen Delivery Oxygen Flow Rate Fraction of Inspired Oxygen 11/07/24 19:16 11/07/24 19:30 11/07/24 19:31 Temperature 37.1 C 37.0 C 37.0 C Pulse Rate 80 81 82 Respiratory Rate 15 12 16 Blood Pressure 141/82 H 164/89 H Pulse Oximetry 95 96 97 Oxygen Delivery Oxygen Flow Rate Fraction of Inspired Oxygen 11/07/24 19:45 11/07/24 19:46 11/07/24 20:00 Temperature 37.0 C 37.1 C Pulse Rate 80 76 77 Respiratory Rate 17 12 16 Blood Pressure 158/82 H Pulse Oximetry 97 97 98 Oxygen Delivery Nasal Cannula Oxygen Flow Rate 1 Fraction of Inspired Oxygen 11/07/24 20:00 11/07/24 20:00 11/07/24 20:00 Temperature 37.1 C 37.1 C Pulse Rate 77 94 92 Respiratory Rate 16 21 H Blood Pressure 167/110 H 167/110 H Pulse Oximetry 98 97 Oxygen Delivery Oxygen Flow Rate Fraction of Inspired Oxygen 11/07/24 20:01 11/07/24 20:15 11/07/24 20:16 Temperature 37.1 C 37.1 C Pulse Rate 81 79 76 Respiratory Rate 17 13 Blood Pressure 180/78 H Pulse Oximetry 99 96 Oxygen Delivery Oxygen Flow Rate Fraction of Inspired Oxygen 11/07/24 20:16 11/07/24 20:30 11/07/24 20:36 Temperature 37.1 C 37.1 C Pulse Rate 76 82 85 Respiratory Rate 17 11 L Blood Pressure 180/78 H 160/78 H Pulse Oximetry 97 93 Oxygen Delivery Oxygen Flow Rate Fraction of Inspired Oxygen 11/07/24 20:41 11/07/24 20:45 11/07/24 20:45 Temperature 37.1 C Pulse Rate 83 79 Respiratory Rate 14 Blood Pressure 156/62 H Pulse Oximetry 94 95 Oxygen Delivery Nasal Cannula Oxygen Flow Rate 1 Fraction of Inspired Oxygen 11/07/24 20:46 11/07/24 21:00 11/07/24 21:00 Temperature 37.1 C 37.1 C Pulse Rate 81 80 81 Respiratory Rate 14 14 Blood Pressure 156/62 H 155/69 H Pulse Oximetry 97 95 Oxygen Delivery Oxygen Flow Rate Fraction of Inspired Oxygen 11/07/24 21:01 11/07/24 21:15 11/07/24 21:31 Temperature 37.1 C Pulse Rate 79 85 83 Respiratory Rate 14 Blood Pressure 155/69 H 142/72 H 146/66 H Pulse Oximetry 96 Oxygen Delivery Oxygen Flow Rate Fraction of Inspired Oxygen 11/07/24 21:34 11/07/24 22:00 11/07/24 22:00 Temperature 37.1 C Pulse Rate 83 75 81 Respiratory Rate 11 L Blood Pressure 143/75 H Pulse Oximetry 97 Oxygen Delivery Oxygen Flow Rate Fraction of Inspired Oxygen 11/07/24 22:00 11/07/24 22:00 11/07/24 22:16 Temperature 37.1 C 37.1 C Pulse Rate 81 77 76 Respiratory Rate 12 17 Blood Pressure 143/65 H 135/59 L Pulse Oximetry 96 96 Oxygen Delivery Oxygen Flow Rate Fraction of Inspired Oxygen 11/07/24 23:35 11/07/24 23:45 11/07/24 23:46 Temperature 36.9 C 36.9 C 36.9 C Pulse Rate 69 73 76 Respiratory Rate 13 13 11 L Blood Pressure 144/60 H Pulse Oximetry 97 95 98 Oxygen Delivery Oxygen Flow Rate Fraction of Inspired Oxygen 11/08/24 00:00 11/08/24 00:00 11/08/24 00:00 Temperature 36.9 C Pulse Rate 74 69 74 Respiratory Rate 10 L 10 L Blood Pressure 156/62 H Pulse Oximetry 97 97 Oxygen Delivery Nasal Cannula Oxygen Flow Rate 1 Fraction of Inspired Oxygen 11/08/24 00:00 11/08/24 00:00 11/08/24 00:01 Temperature 36.9 C 36.9 C Pulse Rate 74 70 74 Respiratory Rate 10 L 12 Blood Pressure 139/62 139/62 Pulse Oximetry 96 97 Oxygen Delivery Oxygen Flow Rate Fraction of Inspired Oxygen 11/08/24 00:15 11/08/24 00:16 11/08/24 00:32 Temperature 36.9 C 36.9 C 36.9 C Pulse Rate 75 105 H 71 Respiratory Rate 13 21 H 16 Blood Pressure 158/96 H Pulse Oximetry 95 98 97 Oxygen Delivery Oxygen Flow Rate Fraction of Inspired Oxygen 11/08/24 01:02 11/08/24 02:00 11/08/24 02:00 Temperature 36.9 C Pulse Rate 78 76 76 Respiratory Rate 11 L Blood Pressure 141/77 H Pulse Oximetry 98 Oxygen Delivery Oxygen Flow Rate Fraction of Inspired Oxygen 11/08/24 02:00 11/08/24 02:31 11/08/24 02:32 Temperature 37.0 C 37.0 C 37.0 C Pulse Rate 76 72 75 Respiratory Rate 10 L 14 13 Blood Pressure 141/77 H 142/69 H Pulse Oximetry 96 96 97 Oxygen Delivery Oxygen Flow Rate Fraction of Inspired Oxygen 11/08/24 03:30 11/08/24 04:00 11/08/24 04:00 Temperature 36.8 C Pulse Rate 91 83 Respiratory Rate 24 H Blood Pressure 165/93 H Pulse Oximetry 99 99 Oxygen Delivery Nasal Cannula Oxygen Flow Rate 1 Fraction of Inspired Oxygen 11/08/24 04:00 11/08/24 04:09 11/08/24 04:17 Temperature 36.9 C 37.0 C Pulse Rate 83 96 91 Respiratory Rate 16 23 H Blood Pressure 165/93 H Pulse Oximetry 100 97 Oxygen Delivery Oxygen Flow Rate Fraction of Inspired Oxygen 11/08/24 04:33 11/08/24 04:45 11/08/24 04:46 Temperature 37.3 C 37.4 C 37.4 C Pulse Rate 83 81 80 Respiratory Rate 22 H 25 H 17 Blood Pressure 177/85 H Pulse Oximetry 97 99 99 Oxygen Delivery Oxygen Flow Rate Fraction of Inspired Oxygen 11/08/24 05:01 11/08/24 05:02 11/08/24 05:25 Temperature 37.5 C 37.5 C 37.4 C Pulse Rate 82 85 89 Respiratory Rate 19 17 20 Blood Pressure 156/79 H Pulse Oximetry 99 98 98 Oxygen Delivery Oxygen Flow Rate Fraction of Inspired Oxygen 11/08/24 05:32 11/08/24 05:45 11/08/24 06:00 Temperature 37.5 C 37.6 C Pulse Rate 85 84 86 Respiratory Rate 14 22 H Blood Pressure Pulse Oximetry 98 97 Oxygen Delivery Oxygen Flow Rate Fraction of Inspired Oxygen 11/08/24 06:00 11/08/24 06:05 Temperature 37.5 C Pulse Rate 86 89 Respiratory Rate 19 Blood Pressure 141/66 H 141/66 H Pulse Oximetry 94 Oxygen Delivery Oxygen Flow Rate Fraction of Inspired Oxygen Intake/Output Intake/Output: Intake & Output 11/05/24 11/06/24 11/07/24 11/08/24 23:59 23:59 23:59 23:59 Intake Total 2041.4 2851.0 2234.7 350 Output Total 4209 879 5042 1425 Balance 766.4 2176.0 -2315.3 -1075 Meds/Results Medications: Active Medications Generic Name Dose Route Start Last Admin Trade Name Freq PRN Reason Stop Dose Admin Acetaminophen 650 mg 11/05/24 01:33 11/08/24 04:27 Acetaminophen 650 Mg Suppository RECTAL 650 mg Q6H PRN Administration Mild Pain (1-3) or Fever Albuterol/Ipratropium 3 ml 11/07/24 08:06 11/07/24 08:43 Ipratropium 0.5 Mg/Albuterol Sulfate 2.5 Mg Ampul.Neb 3 Ml INHALATION 3 ml Q6HRT PRN Administration Wheezing Aspirin 81 mg 11/06/24 08:00 11/07/24 08:36 Aspirin 81 Mg Chewable Tablet PO 81 mg DAILY@0800 MILLA Administration Atorvastatin Calcium 40 mg 11/06/24 09:00 11/07/24 08:36 Atorvastatin 40 Mg Tablet PO 40 mg DAILY MILLA Administration Dexamethasone Sodium Phosphate 6 mg 11/05/24 01:25 11/07/24 08:37 Dexamethasone Sod Phos Inj 10 Mg/Ml 1 Ml Vial IV PUSH 11/14/24 09:01 6 mg DAILY MILLA Administration Dextrose 12.5 gm 11/07/24 08:06 Dextrose 50% 25 Gm/50 Ml Syringe IV PUSH PRN PRN Hypoglycemia Protocol Enoxaparin Sodium 40 mg 11/05/24 09:00 11/07/24 08:38 Enoxaparin 40 Mg/0.4 Ml Syringe SUB-Q 40 mg DAILY MILLA Administration Glucagon 1 mg 11/07/24 08:06 Glucagon For Inj 1 Mg Vial IM PRN PRN Hypoglycemia Protocol Glucose 15 gm 11/07/24 08:06 Glucose Oral Gel 15 Gm Of Glucse In 37.5 Gm Tube PO PRN PRN Hypoglycemia Protocol Hydralazine HCl 10 mg 11/05/24 10:47 11/08/24 05:39 Hydralazine Hcl 20 Mg/Ml Vial IV PUSH 10 mg Q4H PRN Administration Blood Pressure - High Ceftriaxone Sodium 2 gm in 100 mls @ 200 mls/hr 11/06/24 02:00 11/08/24 04:50 Rocephin 2 Gm/Ns 100 Ml IVPB Infused Q24H MILLA Infusion Remdesivir 100 mg in 250 mls @ 250 mls/hr 11/06/24 10:00 11/07/24 11:25 IVPB 11/09/24 10:59 Infused Q24H MILLA Infusion Azithromycin 500 mg in 250 mls @ 250 mls/hr 11/06/24 03:00 11/08/24 04:50 Zithromax IVPB 11/10/24 02:59 Infused Q24H MILLA Infusion Dextrose 1,000 mls @ 100 mls/hr 11/07/24 08:06 Dextrose 5% 1,000 Ml IVPB PRN PRN Hypoglycemia Protocol Nicardipine/Sodium Chloride 20 mg in 200 mls @ 0 mls/hr 11/07/24 16:30 11/08/24 06:05 Cardene 20 Mg/200 Ml Ns IV CONT 0 mg/hr .Q0M MILLA 0 mls/hr Titration Protocol Insulin Aspart 3 - 6 units 11/07/24 09:00 11/08/24 05:02 Insulin Aspart (*Bkc) 100 Units/Ml SUB-Q Not Given Q4HR MILLA Protocol Metoprolol Succinate 12.5 mg 11/07/24 10:15 11/07/24 11:03 Metoprolol Succinate Ext Rel 12.5 Mg Tabcr PO 12.5 mg QAM MILLA Administration Ondansetron HCl 4 mg 11/05/24 01:33 11/07/24 15:53 Ondansetron Inj 4 Mg/2 Ml Vial IV PUSH 4 mg Q4H PRN Administration Nausea Pantoprazole Sodium 40 mg 11/05/24 09:00 11/07/24 08:37 Pantoprazole Sodium Iv 40 Mg Vial IV PUSH 40 mg QAM MILLA Administration Sacubitril/Valsartan 1 tab 11/07/24 21:00 11/07/24 15:48 Sacubitril/Valsartan 24-26 Mg Tablet PO 1 tab Q12HR MILLA Administration Radiology Results: ITS Impressions Chest/Abdomen/Pelvis CT 11/05/24 07:01 IMPRESSION: 1. Extensive patchy airspace consolidation, consistent with pneumonia. 2: Sclerotic lesion left femoral head, most likely benign bone island, although in the presence of enlarged prostate gland, metastatic disease secondary to prostate cancer should be considered. Head/Cervical Spine/Facial Bones CT 11/05/24 07:07 IMPRESSION: 1. No acute abnormality of the facial bones or cervical spine. 2: Severe cervical spondylosis. 3: Patchy upper lobe infiltrates, consistent with pneumonia. Head CT 11/05/24 07:11 IMPRESSION: 1. No acute intracranial abnormality. Abdomen X-Ray 11/05/24 07:19 IMPRESSION: 1: NG tube tip in the stomach. Carotid Doppler Study 11/06/24 15:13 IMPRESSION: 1. Less than 50% stenosis in the right internal carotid artery. 2. Less than 50% stenosis in the left internal carotid artery. Chest X-Ray 11/08/24 06:04 IMPRESSION: 1. Mild airspace opacities in left lower lobe with interval improvement, consistent with pneumonia. Labs Labs: Laboratory Results - last 24 hr 11/05/24 11/07/24 11/07/24 09:26 07:06 08:44 WBC RBC Hgb Hct MCV MCH MCHC RDW Plt Count MPV Immature Gran % (Auto) Neut % (Auto) Lymph % (Auto) [place] % (Auto) Eos % (Auto) Baso % (Auto) Lymph # (Auto) [place] # (Auto) Eos # (Auto) Baso # (Auto) Abs Immat Gran (auto) Absolute Neuts (auto) Absolute Nucleated RBC Nucleated RBC % Puncture Site ABG pH ABG pCO2 ABG pO2 ABG PO2/FiO2 Ratio ABG HCO3 ABG O2 Saturation ABG O2 Content ABG Base Excess A-a Gradient Oxyhemoglobin Total Hemoglobin O2 Delivery Device O2 Liters/Min Minute Volume Vent Rate Vent Mode FiO2 Tidal Volume PEEP Peak Inspir Pressure Pressure Support Sodium Potassium Chloride Carbon Dioxide Anion Gap BUN Creatinine Estim Creat Clear Calc Estimated GFR Glucose POC Capillary Glucose 106 H Lactic Acid 1.8 Calcium Phosphorus Magnesium Total Bilirubin AST ALT Alkaline Phosphatase Total Protein Albumin Ur L.pneumophila Ag Not detected Urine Pneumococcal Ag Not detected 11/07/24 11/07/24 11/07/24 12:07 12:17 16:41 WBC RBC Hgb Hct MCV MCH MCHC RDW Plt Count MPV Immature Gran % (Auto) Neut % (Auto) Lymph % (Auto) [place] % (Auto) Eos % (Auto) Baso % (Auto) Lymph # (Auto) [place] # (Auto) Eos # (Auto) Baso # (Auto) Abs Immat Gran (auto) Absolute Neuts (auto) Absolute Nucleated RBC Nucleated RBC % Puncture Site Right radial ABG pH 7.418 ABG pCO2 34.1 L ABG pO2 103.1 H ABG PO2/FiO2 Ratio 3.44 ABG HCO3 21.5 L ABG O2 Saturation 97.9 ABG O2 Content 20.0 ABG Base Excess -2.2 A-a Gradient 70.7 Oxyhemoglobin 97.0 Total Hemoglobin 14.6 O2 Delivery Device Ventilator O2 Liters/Min Not Reportable Minute Volume Not Reportable Vent Rate Not Reportable Vent Mode Spontaneous FiO2 30 Tidal Volume Not Reportable PEEP 5 Peak Inspir Pressure Not Reportable Pressure Support 5 Sodium Potassium Chloride Carbon Dioxide Anion Gap BUN Creatinine Estim Creat Clear Calc Estimated GFR Glucose POC Capillary Glucose 122 H 144 H Lactic Acid Calcium Phosphorus Magnesium Total Bilirubin AST ALT Alkaline Phosphatase Total Protein Albumin Ur L.pneumophila Ag Urine Pneumococcal Ag 11/07/24 11/08/24 11/08/24 20:04 00:14 04:19 WBC 14.4 H RBC 4.95 Hgb 16.2 D Hct 47.2 MCV 95.4 MCH 32.7 MCHC 34.3 RDW 11.8 Plt Count 227 D MPV 10.2 Immature Gran % (Auto) 0.8 H Neut % (Auto) 77.2 H Lymph % (Auto) 13.7 L [place] % (Auto) 8.1 Eos % (Auto) 0.0 Baso % (Auto) 0.2 Lymph # (Auto) 1.98 [place] # (Auto) 1.2 H Eos # (Auto) 0.0 Baso # (Auto) 0.0 Abs Immat Gran (auto) 0.11 H Absolute Neuts (auto) 11.2 H Absolute Nucleated RBC 0.000 Nucleated RBC % 0.0 Puncture Site ABG pH ABG pCO2 ABG pO2 ABG PO2/FiO2 Ratio ABG HCO3 ABG O2 Saturation ABG O2 Content ABG Base Excess A-a Gradient Oxyhemoglobin Total Hemoglobin O2 Delivery Device O2 Liters/Min Minute Volume Vent Rate Vent Mode FiO2 Tidal Volume PEEP Peak Inspir Pressure Pressure Support Sodium 138 Potassium 4.5 Chloride 102 Carbon Dioxide 23 Anion Gap 13 H BUN 26 H Creatinine 1.02 Estim Creat Clear Calc 62 Estimated GFR > 60 Glucose 118 H POC Capillary Glucose 146 H 129 H Lactic Acid Calcium 9.4 Phosphorus 3.4 Magnesium 2.2 Total Bilirubin 0.5 AST 31 ALT 31 Alkaline Phosphatase 56 Total Protein 8.0 Albumin 4.6 Ur L.pneumophila Ag Urine Pneumococcal Ag Quality VTE Prophylaxis VTE prophylaxis: pharmacologic ordered
[2024-11-08] MEDS: ATORVASTATIN 40 MG TABLET PO (08:38)
[2024-11-08] MEDS: SPIRONOLACTONE 25 MG TABLET PO (08:38)
[2024-11-08] MEDS: SACUBITRIL/VALSARTAN 24-26 MG TABLET 1 TAB PO ×2 (08:38→20:11)
[2024-11-08] MEDS: ASPIRIN 81 MG CHEWABLE TABLET PO (08:38)
[2024-11-08] MEDS: METOPROLOL SUCCINATE EXT REL 25 MG TABCR PO (08:38)
[2024-11-08] MEDS: ENOXAPARIN 40 MG/0.4 ML SYRINGE SUB-Q (08:38)
[2024-11-08] MEDS: PANTOPRAZOLE SODIUM IV 40 MG VIAL IV PUSH (08:39)
[2024-11-08] MEDS: dexAMETHasone SOD PHOS INJ 10 MG/ML 1 ML VIAL 6 MG IV PUSH (08:39)
[2024-11-08] MEDS: ONDANSETRON INJ 4 MG/2 ML VIAL IV PUSH (08:50)
[2024-11-08 08:58] LABS: Glucose Point of Care 116 mg/dl (65-105)
--- NOTE | 2024-11-08 09:11 | WPDINTPN ---
Progress Note: A&P Assessment and Plan (1) Acute respiratory failure with hypoxia: Code(s): J96.01 - Acute respiratory failure with hypoxia Status: Acute Assessment and Plan: Acute respiratory failure status post fall/syncope, agonal breathing, initially i-Gel (supraglottic airway) was inserted Appears to be multifactorial secondary to pneumonia could be aspiration, congestive heart failure and patient also tested positive for COVID-19. He has been vaccinated in the past 11/05:Patient was intubated in the ER 11/08 extubated after a successful weaning trial Continue supplemental oxygen. Incentive spirometry. - chest x-ray and ABG reviewed -SARS-CoV-2 PCR was positive -continue bronchodilators but change to p.r.n. -patient received Lasix IV for. Hold further dosing today -continue Rocephin and azithromycin. Off vancomycin -continue dexamethasone and remdesivir for the cord -isolation 11/05: CT chest abdomen and pelvis 1. Extensive patchy airspace consolidation, consistent with pneumonia. 2: Sclerotic lesion left femoral head, most likely benign bone island, although in the presence of enlarged prostate gland, metastatic disease secondary to prostate cancer should be considered. (2) COVID-19: Code(s): U07.1 - COVID-19 Status: Acute Assessment and Plan: Patient tested positive for SARS-CoV-2 PCR PCR -pneumonia could be related to that or bacterial pneumonia -patient received a dose of tocilizumab in the ER -continue dexamethasone remdesivir (3) Pneumonia: Code(s): J18.9 - Pneumonia, unspecified organism Status: Acute Assessment and Plan: Extensive pneumonia seen on CT chest as above - continue azithromycin, ceftriaxone (11/05). Discontinue vancomycin -MRSA screen is negative -11/05: blood cultures negative x2 for -11/05: Sputum cultures obtained and (4) Elevated troponin: Code(s): R79.89 - Other specified abnormal findings of blood chemistry Status: Acute Assessment and Plan: Elevated troponins, initial EKG showed possible atrial flutter, LBBB -appreciate cardiology evaluation and recommendations, -continue aspirin and statin -elevated troponin could be related to type 2 infarct secondary to pneumonia, CAD, arrhythmias which could be related to syncopal episode, -ischemic evaluation depending on clinical course -Lasix IV 11/05/2024: Echocardiogram Summary 1. Left ventricular chamber dimension is normal. 2. There is mildly increased left ventricular wall thickness. 3. Left ventricular systolic function is moderately reduced, estimated at 30-35%. 4. Global hypokinesis with more pronounced hypokinesis of the anteroseptum, mid inferoseptum, apex. 5. The left ventricular diastolic function is grade I diastolic dysfunction. 6. Right ventricular systolic function is normal. 7. Left atrial chamber dimension is moderately enlarged. 8. No significant valvular disease. (5) Syncope: Code(s): R55 - Syncope and collapse Status: Acute Assessment and Plan: Patient presented with fall could be related to syncope secondary to hypoxia, a cardiac arrhythmias as when patient arrived he was possible in atrial flutter, tachycardic -elevated troponins, could be related to coronary artery disease/type 2 infarct -echocardiogram as above -less than 50% stenosis bilaterally on carotid Doppler 11/05:CT head on admission: No acute intracranial abnormality. 11/05: CT cervical spine/facial bones on admission: 1. No acute abnormality of the facial bones or cervical spine.2: Severe cervical spondylosis.3: Patchy upper lobe infiltrates, consistent with pneumonia. (6) Essential hypertension: Code(s): I10 - Essential (primary) hypertension Status: Acute Assessment and Plan: Continue Entresto and metoprolol P.r.n. labetalol and hydralazine (7) Hyperlipidemia: Code(s): E78.5 - Hyperlipidemia, unspecified Status: Acute Assessment and Plan: Continue atorvastatin Plan DVT prophylaxis: Enoxaparin Stress ulcer prophylaxis: Protonix Nutrition: NPO until speech evaluation Code Status: Full code Consult PT OT Consult speech therapy Transfer out of ICU today Subjective Date/time seen: 11/08/24 Patient was extubated yesterday after a successful weaning trial. He has done well and is currently on 1 L nasal cannula. He states his throat hurts for from the tube. He denies any shortness of breath chest pain nausea vomiting abdominal pain diarrhea. All other systems were reviewed and were negative. He has at Good urine output in response to diuretics yesterday. Otherwise signs are stable Interval history: Reason for consult: Fall, acute respiratory failure, syncope, COVID-19 Review of Systems Review of Systems: All systems reviewed & are unremarkable except as noted in HPI and below (HPI) Exam Narrative: General: Alert awake and in no distress s HEENT:? Pupils equal and reactive, sclera is clear, Neck:? Cervical collar in place Respiratory:? Clear breath sound, decreased air entry at bases with no wheezing Cardiac:? S1-S2 is normal, regular rate and rhythm, no murmurs Abdomen:? Soft, nontender, nondistended, normoactive bowel sounds Extremities:? No edema, palpable pedal pulses Neuro:? Patient AO x3, moves and follows commands all 4 extremities Skin:? No skin lesions noted Psych:? Normal speech and affect Objective Data Vital Signs Vital Signs: Vital Signs - 24 hr 11/07/24 09:23 11/07/24 09:25 11/07/24 09:25 Temperature Pulse Rate 64 59 L 67 Respiratory Rate 11 L 11 L Blood Pressure Pulse Oximetry 100 Oxygen Delivery Mechanical Ventilation Oxygen Flow Rate Fraction of Inspired Oxygen 30 11/07/24 09:42 11/07/24 10:00 11/07/24 10:00 Temperature 36.9 C Pulse Rate 68 67 95 Respiratory Rate 16 Blood Pressure 148/66 H Pulse Oximetry 96 99 Oxygen Delivery Mechanical Ventilation Oxygen Flow Rate Fraction of Inspired Oxygen 30 11/07/24 10:00 11/07/24 10:00 11/07/24 11:02 Temperature Pulse Rate 70 71 66 Respiratory Rate 12 11 L Blood Pressure Pulse Oximetry 98 Oxygen Delivery Mechanical Ventilation Oxygen Flow Rate Fraction of Inspired Oxygen 30 11/07/24 11:03 11/07/24 11:57 11/07/24 12:00 Temperature 36.9 C Pulse Rate 72 80 77 Respiratory Rate 12 Blood Pressure 157/95 H Pulse Oximetry 97 Oxygen Delivery Oxygen Flow Rate Fraction of Inspired Oxygen 11/07/24 12:00 11/07/24 12:00 11/07/24 12:00 Temperature Pulse Rate 78 68 78 Respiratory Rate 13 12 Blood Pressure Pulse Oximetry 99 Oxygen Delivery Mechanical Ventilation Oxygen Flow Rate Fraction of Inspired Oxygen 11/07/24 12:15 11/07/24 12:17 11/07/24 12:44 Temperature Pulse Rate 98 72 Respiratory Rate 12 18 Blood Pressure Pulse Oximetry 95 98 Oxygen Delivery Nasal Cannula Nasal Cannula Oxygen Flow Rate 2 2 Fraction of Inspired Oxygen 28 11/07/24 12:45 11/07/24 14:00 11/07/24 14:00 Temperature 36.9 C Pulse Rate 72 86 86 Respiratory Rate 18 12 Blood Pressure 183/73 H Pulse Oximetry 96 Oxygen Delivery Oxygen Flow Rate Fraction of Inspired Oxygen 11/07/24 15:37 11/07/24 16:00 11/07/24 16:00 Temperature 36.9 C 36.9 C Pulse Rate 85 95 97 Respiratory Rate 12 15 Blood Pressure 186/89 H 203/99 H Pulse Oximetry 98 98 Oxygen Delivery Oxygen Flow Rate Fraction of Inspired Oxygen 11/07/24 16:00 11/07/24 16:18 11/07/24 16:30 Temperature Pulse Rate 79 99 99 Respiratory Rate 13 14 Blood Pressure 203/99 H 197/106 H Pulse Oximetry 97 95 Oxygen Delivery Nasal Cannula Nasal Cannula Oxygen Flow Rate 1 1 Fraction of Inspired Oxygen 11/07/24 16:33 11/07/24 16:45 11/07/24 17:00 Temperature Pulse Rate 101 H 83 80 Respiratory Rate Blood Pressure 165/75 H 153/74 H Pulse Oximetry Oxygen Delivery Oxygen Flow Rate Fraction of Inspired Oxygen 11/07/24 17:15 11/07/24 17:30 11/07/24 18:00 Temperature Pulse Rate 81 82 83 Respiratory Rate Blood Pressure 142/67 H 141/77 H Pulse Oximetry Oxygen Delivery Oxygen Flow Rate Fraction of Inspired Oxygen 11/07/24 18:00 11/07/24 18:00 11/07/24 18:30 Temperature 37.1 C Pulse Rate 83 85 86 Respiratory Rate 16 Blood Pressure 150/74 H 142/67 H 135/64 Pulse Oximetry 15 L Oxygen Delivery Oxygen Flow Rate Fraction of Inspired Oxygen 11/07/24 19:00 11/07/24 19:01 11/07/24 19:15 Temperature 37.1 C 37.1 C 37.1 C Pulse Rate 77 81 73 Respiratory Rate 18 16 14 Blood Pressure 147/64 H Pulse Oximetry 96 97 94 Oxygen Delivery Oxygen Flow Rate Fraction of Inspired Oxygen 11/07/24 19:16 11/07/24 19:30 11/07/24 19:31 Temperature 37.1 C 37.0 C 37.0 C Pulse Rate 80 81 82 Respiratory Rate 15 12 16 Blood Pressure 141/82 H 164/89 H Pulse Oximetry 95 96 97 Oxygen Delivery Oxygen Flow Rate Fraction of Inspired Oxygen 11/07/24 19:45 11/07/24 19:46 11/07/24 20:00 Temperature 37.0 C 37.1 C Pulse Rate 80 76 77 Respiratory Rate 17 12 16 Blood Pressure 158/82 H Pulse Oximetry 97 97 98 Oxygen Delivery Nasal Cannula Oxygen Flow Rate 1 Fraction of Inspired Oxygen 11/07/24 20:00 11/07/24 20:00 11/07/24 20:00 Temperature 37.1 C 37.1 C Pulse Rate 77 94 92 Respiratory Rate 16 21 H Blood Pressure 167/110 H 167/110 H Pulse Oximetry 98 97 Oxygen Delivery Oxygen Flow Rate Fraction of Inspired Oxygen 11/07/24 20:01 11/07/24 20:15 11/07/24 20:16 Temperature 37.1 C 37.1 C Pulse Rate 81 79 76 Respiratory Rate 17 13 Blood Pressure 180/78 H Pulse Oximetry 99 96 Oxygen Delivery Oxygen Flow Rate Fraction of Inspired Oxygen 11/07/24 20:16 11/07/24 20:30 11/07/24 20:36 Temperature 37.1 C 37.1 C Pulse Rate 76 82 85 Respiratory Rate 17 11 L Blood Pressure 180/78 H 160/78 H Pulse Oximetry 97 93 Oxygen Delivery Oxygen Flow Rate Fraction of Inspired Oxygen 11/07/24 20:41 11/07/24 20:45 11/07/24 20:45 Temperature 37.1 C Pulse Rate 83 79 Respiratory Rate 14 Blood Pressure 156/62 H Pulse Oximetry 94 95 Oxygen Delivery Nasal Cannula Oxygen Flow Rate 1 Fraction of Inspired Oxygen 11/07/24 20:46 11/07/24 21:00 11/07/24 21:00 Temperature 37.1 C 37.1 C Pulse Rate 81 80 81 Respiratory Rate 14 14 Blood Pressure 156/62 H 155/69 H Pulse Oximetry 97 95 Oxygen Delivery Oxygen Flow Rate Fraction of Inspired Oxygen 11/07/24 21:01 11/07/24 21:15 11/07/24 21:31 Temperature 37.1 C Pulse Rate 79 85 83 Respiratory Rate 14 Blood Pressure 155/69 H 142/72 H 146/66 H Pulse Oximetry 96 Oxygen Delivery Oxygen Flow Rate Fraction of Inspired Oxygen 11/07/24 21:34 11/07/24 22:00 11/07/24 22:00 Temperature 37.1 C Pulse Rate 83 75 81 Respiratory Rate 11 L Blood Pressure 143/75 H Pulse Oximetry 97 Oxygen Delivery Oxygen Flow Rate Fraction of Inspired Oxygen 11/07/24 22:00 11/07/24 22:00 11/07/24 22:16 Temperature 37.1 C 37.1 C Pulse Rate 81 77 76 Respiratory Rate 12 17 Blood Pressure 143/65 H 135/59 L Pulse Oximetry 96 96 Oxygen Delivery Oxygen Flow Rate Fraction of Inspired Oxygen 11/07/24 23:35 11/07/24 23:45 11/07/24 23:46 Temperature 36.9 C 36.9 C 36.9 C Pulse Rate 69 73 76 Respiratory Rate 13 13 11 L Blood Pressure 144/60 H Pulse Oximetry 97 95 98 Oxygen Delivery Oxygen Flow Rate Fraction of Inspired Oxygen 11/08/24 00:00 11/08/24 00:00 11/08/24 00:00 Temperature 36.9 C Pulse Rate 74 69 74 Respiratory Rate 10 L 10 L Blood Pressure 156/62 H Pulse Oximetry 97 97 Oxygen Delivery Nasal Cannula Oxygen Flow Rate 1 Fraction of Inspired Oxygen 11/08/24 00:00 11/08/24 00:00 11/08/24 00:01 Temperature 36.9 C 36.9 C Pulse Rate 74 70 74 Respiratory Rate 10 L 12 Blood Pressure 139/62 139/62 Pulse Oximetry 96 97 Oxygen Delivery Oxygen Flow Rate Fraction of Inspired Oxygen 11/08/24 00:15 11/08/24 00:16 11/08/24 00:32 Temperature 36.9 C 36.9 C 36.9 C Pulse Rate 75 105 H 71 Respiratory Rate 13 21 H 16 Blood Pressure 158/96 H Pulse Oximetry 95 98 97 Oxygen Delivery Oxygen Flow Rate Fraction of Inspired Oxygen 11/08/24 01:02 11/08/24 02:00 11/08/24 02:00 Temperature 36.9 C Pulse Rate 78 76 76 Respiratory Rate 11 L Blood Pressure 141/77 H Pulse Oximetry 98 Oxygen Delivery Oxygen Flow Rate Fraction of Inspired Oxygen 11/08/24 02:00 11/08/24 02:31 11/08/24 02:32 Temperature 37.0 C 37.0 C 37.0 C Pulse Rate 76 72 75 Respiratory Rate 10 L 14 13 Blood Pressure 141/77 H 142/69 H Pulse Oximetry 96 96 97 Oxygen Delivery Oxygen Flow Rate Fraction of Inspired Oxygen 11/08/24 03:30 11/08/24 04:00 11/08/24 04:00 Temperature 36.8 C Pulse Rate 91 83 Respiratory Rate 24 H Blood Pressure 165/93 H Pulse Oximetry 99 99 Oxygen Delivery Nasal Cannula Oxygen Flow Rate 1 Fraction of Inspired Oxygen 11/08/24 04:00 11/08/24 04:09 11/08/24 04:17 Temperature 36.9 C 37.0 C Pulse Rate 83 96 91 Respiratory Rate 16 23 H Blood Pressure 165/93 H Pulse Oximetry 100 97 Oxygen Delivery Oxygen Flow Rate Fraction of Inspired Oxygen 11/08/24 04:33 11/08/24 04:45 11/08/24 04:46 Temperature 37.3 C 37.4 C 37.4 C Pulse Rate 83 81 80 Respiratory Rate 22 H 25 H 17 Blood Pressure 177/85 H Pulse Oximetry 97 99 99 Oxygen Delivery Oxygen Flow Rate Fraction of Inspired Oxygen 11/08/24 05:01 11/08/24 05:02 11/08/24 05:25 Temperature 37.5 C 37.5 C 37.4 C Pulse Rate 82 85 89 Respiratory Rate 19 17 20 Blood Pressure 156/79 H Pulse Oximetry 99 98 98 Oxygen Delivery Oxygen Flow Rate Fraction of Inspired Oxygen 11/08/24 05:32 11/08/24 05:45 11/08/24 06:00 Temperature 37.5 C 37.6 C Pulse Rate 85 84 86 Respiratory Rate 14 22 H Blood Pressure Pulse Oximetry 98 97 Oxygen Delivery Oxygen Flow Rate Fraction of Inspired Oxygen 11/08/24 06:00 11/08/24 06:05 11/08/24 08:38 Temperature 37.5 C Pulse Rate 86 89 78 Respiratory Rate 19 Blood Pressure 141/66 H 141/66 H Pulse Oximetry 94 Oxygen Delivery Oxygen Flow Rate Fraction of Inspired Oxygen Intake/Output Intake/Output: Intake & Output 11/05/24 11/06/24 11/07/24 11/08/24 23:59 23:59 23:59 23:59 Intake Total 2041.4 2851.0 2234.7 350 Output Total 6995 249 9985 1425 Balance 766.4 2176.0 -2315.3 -1075 Meds/Results Medications: Active Medications Generic Name Dose Route Start Last Admin Trade Name Freq PRN Reason Stop Dose Admin Acetaminophen 650 mg 11/05/24 01:33 11/08/24 04:27 Acetaminophen 650 Mg Suppository RECTAL 650 mg Q6H PRN Administration Mild Pain (1-3) or Fever Albuterol/Ipratropium 3 ml 11/07/24 08:06 11/07/24 08:43 Ipratropium 0.5 Mg/Albuterol Sulfate 2.5 Mg Ampul.Neb 3 Ml INHALATION 3 ml Q6HRT PRN Administration Wheezing Aspirin 81 mg 11/06/24 08:00 11/08/24 08:38 Aspirin 81 Mg Chewable Tablet PO 81 mg DAILY@0800 MILLA Administration Atorvastatin Calcium 40 mg 11/06/24 09:00 11/08/24 08:38 Atorvastatin 40 Mg Tablet PO 40 mg DAILY MILLA Administration Dexamethasone Sodium Phosphate 6 mg 11/05/24 01:25 11/08/24 08:39 Dexamethasone Sod Phos Inj 10 Mg/Ml 1 Ml Vial IV PUSH 11/14/24 09:01 6 mg DAILY MILLA Administration Dextrose 12.5 gm 11/07/24 08:06 Dextrose 50% 25 Gm/50 Ml Syringe IV PUSH PRN PRN Hypoglycemia Protocol Enoxaparin Sodium 40 mg 11/05/24 09:00 11/08/24 08:38 Enoxaparin 40 Mg/0.4 Ml Syringe SUB-Q 40 mg DAILY MILLA Administration Glucagon 1 mg 11/07/24 08:06 Glucagon For Inj 1 Mg Vial IM PRN PRN Hypoglycemia Protocol Glucose 15 gm 11/07/24 08:06 Glucose Oral Gel 15 Gm Of Glucse In 37.5 Gm Tube PO PRN PRN Hypoglycemia Protocol Hydralazine HCl 20 mg 11/08/24 07:39 Hydralazine Hcl 20 Mg/Ml Vial IV PUSH Q4H PRN SBP > 160 - 2nd Choice Ceftriaxone Sodium 2 gm in 100 mls @ 200 mls/hr 11/06/24 02:00 11/08/24 04:50 Rocephin 2 Gm/Ns 100 Ml IVPB Infused Q24H MILLA Infusion Remdesivir 100 mg in 250 mls @ 250 mls/hr 11/06/24 10:00 11/07/24 11:25 IVPB 11/09/24 10:59 Infused Q24H MILLA Infusion Azithromycin 500 mg in 250 mls @ 250 mls/hr 11/06/24 03:00 11/08/24 04:50 Zithromax IVPB 11/10/24 02:59 Infused Q24H MILLA Infusion Dextrose 1,000 mls @ 100 mls/hr 11/07/24 08:06 Dextrose 5% 1,000 Ml IVPB PRN PRN Hypoglycemia Protocol Insulin Aspart 3 - 6 units 11/07/24 09:00 11/08/24 08:46 Insulin Aspart (*Bkc) 100 Units/Ml SUB-Q Not Given Q4HR MILLA Protocol Labetalol HCl 20 mg 11/08/24 07:37 Labetalol Hcl Inj 100 Mg/20 Ml Vial IV PUSH Q4H PRN SBP > 160 and HR> 60 -1st choice Metoprolol Succinate 25 mg 11/08/24 09:00 11/08/24 08:38 Metoprolol Succinate Ext Rel 25 Mg Tabcr PO 25 mg QAM MILLA Administration Ondansetron HCl 4 mg 11/05/24 01:33 11/08/24 08:50 Ondansetron Inj 4 Mg/2 Ml Vial IV PUSH 4 mg Q4H PRN Administration Nausea Pantoprazole Sodium 40 mg 11/05/24 09:00 11/08/24 08:39 Pantoprazole Sodium Iv 40 Mg Vial IV PUSH 40 mg QAM MILLA Administration Sacubitril/Valsartan 1 tab 11/07/24 21:00 11/08/24 08:38 Sacubitril/Valsartan 24-26 Mg Tablet PO 1 tab Q12HR MILLA Administration Spironolactone 25 mg 11/08/24 09:00 11/08/24 08:38 Spironolactone 25 Mg Tablet PO 25 mg QAM MILLA Administration Radiology Results: ITS Impressions Chest/Abdomen/Pelvis CT 11/05/24 07:01 IMPRESSION: 1. Extensive patchy airspace consolidation, consistent with pneumonia. 2: Sclerotic lesion left femoral head, most likely benign bone island, although in the presence of enlarged prostate gland, metastatic disease secondary to prostate cancer should be considered. Head/Cervical Spine/Facial Bones CT 11/05/24 07:07 IMPRESSION: 1. No acute abnormality of the facial bones or cervical spine. 2: Severe cervical spondylosis. 3: Patchy upper lobe infiltrates, consistent with pneumonia. Head CT 11/05/24 07:11 IMPRESSION: 1. No acute intracranial abnormality. Abdomen X-Ray 11/05/24 07:19 IMPRESSION: 1: NG tube tip in the stomach. Carotid Doppler Study 11/06/24 15:13 IMPRESSION: 1. Less than 50% stenosis in the right internal carotid artery. 2. Less than 50% stenosis in the left internal carotid artery. Chest X-Ray 11/08/24 06:04 IMPRESSION: 1. Mild airspace opacities in left lower lobe with interval improvement, consistent with pneumonia. Labs Labs: Laboratory Results - last 24 hr 11/05/24 11/07/24 11/07/24 09:26 12:07 12:17 WBC RBC Hgb Hct MCV MCH MCHC RDW Plt Count MPV Immature Gran % (Auto) Neut % (Auto) Lymph % (Auto) [place] % (Auto) Eos % (Auto) Baso % (Auto) Lymph # (Auto) [place] # (Auto) Eos # (Auto) Baso # (Auto) Abs Immat Gran (auto) Absolute Neuts (auto) Absolute Nucleated RBC Nucleated RBC % Puncture Site Right radial ABG pH 7.418 ABG pCO2 34.1 L ABG pO2 103.1 H ABG PO2/FiO2 Ratio 3.44 ABG HCO3 21.5 L ABG O2 Saturation 97.9 ABG O2 Content 20.0 ABG Base Excess -2.2 A-a Gradient 70.7 Oxyhemoglobin 97.0 Total Hemoglobin 14.6 O2 Delivery Device Ventilator O2 Liters/Min Not Reportable Minute Volume Not Reportable Vent Rate Not Reportable Vent Mode Spontaneous FiO2 30 Tidal Volume Not Reportable PEEP 5 Peak Inspir Pressure Not Reportable Pressure Support 5 Sodium Potassium Chloride Carbon Dioxide Anion Gap BUN Creatinine Estim Creat Clear Calc Estimated GFR Glucose POC Capillary Glucose 122 H Calcium Phosphorus Magnesium Total Bilirubin AST ALT Alkaline Phosphatase Total Protein Albumin Ur L.pneumophila Ag Not detected Urine Pneumococcal Ag Not detected 11/07/24 11/07/24 11/08/24 16:41 20:04 00:14 WBC RBC Hgb Hct MCV MCH MCHC RDW Plt Count MPV Immature Gran % (Auto) Neut % (Auto) Lymph % (Auto) [place] % (Auto) Eos % (Auto) Baso % (Auto) Lymph # (Auto) [place] # (Auto) Eos # (Auto) Baso # (Auto) Abs Immat Gran (auto) Absolute Neuts (auto) Absolute Nucleated RBC Nucleated RBC % Puncture Site ABG pH ABG pCO2 ABG pO2 ABG PO2/FiO2 Ratio ABG HCO3 ABG O2 Saturation ABG O2 Content ABG Base Excess A-a Gradient Oxyhemoglobin Total Hemoglobin O2 Delivery Device O2 Liters/Min Minute Volume Vent Rate Vent Mode FiO2 Tidal Volume PEEP Peak Inspir Pressure Pressure Support Sodium Potassium Chloride Carbon Dioxide Anion Gap BUN Creatinine Estim Creat Clear Calc Estimated GFR Glucose POC Capillary Glucose 144 H 146 H 129 H Calcium Phosphorus Magnesium Total Bilirubin AST ALT Alkaline Phosphatase Total Protein Albumin Ur L.pneumophila Ag Urine Pneumococcal Ag 11/08/24 11/08/24 04:19 08:43 WBC 14.4 H RBC 4.95 Hgb 16.2 D Hct 47.2 MCV 95.4 MCH 32.7 MCHC 34.3 RDW 11.8 Plt Count 227 D MPV 10.2 Immature Gran % (Auto) 0.8 H Neut % (Auto) 77.2 H Lymph % (Auto) 13.7 L [place] % (Auto) 8.1 Eos % (Auto) 0.0 Baso % (Auto) 0.2 Lymph # (Auto) 1.98 [place] # (Auto) 1.2 H Eos # (Auto) 0.0 Baso # (Auto) 0.0 Abs Immat Gran (auto) 0.11 H Absolute Neuts (auto) 11.2 H Absolute Nucleated RBC 0.000 Nucleated RBC % 0.0 Puncture Site ABG pH ABG pCO2 ABG pO2 ABG PO2/FiO2 Ratio ABG HCO3 ABG O2 Saturation ABG O2 Content ABG Base Excess A-a Gradient Oxyhemoglobin Total Hemoglobin O2 Delivery Device O2 Liters/Min Minute Volume Vent Rate Vent Mode FiO2 Tidal Volume PEEP Peak Inspir Pressure Pressure Support Sodium 138 Potassium 4.5 Chloride 102 Carbon Dioxide 23 Anion Gap 13 H BUN 26 H Creatinine 1.02 Estim Creat Clear Calc 62 Estimated GFR > 60 Glucose 118 H POC Capillary Glucose 116 H Calcium 9.4 Phosphorus 3.4 Magnesium 2.2 Total Bilirubin 0.5 AST 31 ALT 31 Alkaline Phosphatase 56 Total Protein 8.0 Albumin 4.6 Ur L.pneumophila Ag Urine Pneumococcal Ag Quality VTE Prophylaxis VTE prophylaxis: pharmacologic ordered
[2024-11-08] MEDS: REMDESIVIR 100 MG/NS 250 ML 100 MG/250 ML BAG 250 MG IVPB (10:22)
--- NOTE | 2024-11-08 10:30 | PCSTNOTE ---
Please refer to the Bedside Swallow Evaluation in the EMR. Please note, silent aspiration cannot be ruled out at bedside. The above pt, admitted with a dx of COVID and respiratory failure with 3-day intubation, was seen for a bedside swallow evaluation post extubation. Per RN he is nauseous this am possibly due to medications. Pt was able to dry swallow on command and exhibited a clear vocal quality before oral trials. Oral mucosa is normal; natural dentition is in good condition. Cursory oral peripheral exam revealed lingual and labial structures to be within normal limits. Pt was positioned upright in the bed for optimal feeding position. He was tested with small amounts of thin liquids, pudding, and cracker in controlled amounts; thin liquids were also tested in uncontrolled amounts via a cup sip (very small amount). The oral stages appeared WNL. No oral leakage or pocketing was noted. During the pharyngeal stage, the swallow reflex appeared prompt & laryngeal elevation adequate; however, pt exhibited a delayed cough after the pudding and cracker trials. Pt stated the cough didn't seem to be related to the food trials but more so sinus drainage. Due to the inconsistent overt s/s of aspiration, an MBS is recommended. Impression/recommendation: could not definitively rule out aspiration at the bedside; an MBS is recommended to further assess swallow ability, definitively rule out aspiration, and determine a safe diet and/or POC if appropriate. Thank you for this referral.
[2024-11-08 12:59] LABS: Glucose Point of Care 152 mg/dl (65-105)
--- NOTE | 2024-11-08 13:46 | PCNFU ---
Nutrition Follow-Up Complete: Predicted suboptimal energy intake as related to mechanical ventilation as evidenced by NPO/tube feedings. goal: Meet estimated nutritional needs Patient is progressing towards goal. We will continue current goal. Pt current nutrition is NPO. Last recorded weight is 81.8 kg, down from 90.8 kg. Called nursing they are going to zero bed and reweigh. Bowel Motility:No BM reported. Labs Reviewed: Glu 118, BUN 26 Meds Noted: Protonix, Rocephin Skin:WNL Additional Notes: Patient is currently NPO for MBS. Will monitor and follow up when testing is complete. Will monitor weight, labs, skin, diet orders, meds every 3 days.
--- NOTE | 2024-11-08 13:59 | PCPTNOTE ---
Attempted PT evaluation this date. Pt getting MBS at this time. Will continue to attempt.
--- NOTE | 2024-11-08 14:35 | PCSTNOTE ---
Please refer to the Modified Barium Swallow Evaluation in the EMR. Pt was seen for an MBS due to questionable overt s/s of aspiration during the bedside swallow evaluation. Pt was intubated x 3 days & extubated on 11/07. For the MBS, he appeared very tired but he was able to follow directions for completion of the testing. The patient was seated for a lateral view and presented with 5cc of thin liquid barium via spoon, pudding consistency barium via a spoon, cracker coated with barium pudding via spoon, and uncontrolled thin liquid barium. This was presented via a cup & straw. Oral preparatory and oral phase symptoms: none. Pharyngeal phase symptoms: none. Esophageal stage symptoms: none. No aspiration occurred. Impressions: Normal swallow Ability Recommendation: Regular diet with regular liquids No further ST is warranted at this time.
[2024-11-08 16:48] LABS: Glucose Point of Care 146 mg/dl (65-105)
[2024-11-08] MEDS: LABETALOL HCL INJ 100 MG/20 ML VIAL 20 MG IV PUSH (20:10)
[2024-11-08 20:36] LABS: Glucose Point of Care 120 mg/dl (65-105)
[2024-11-08 22:11] LABS: Triglycerides 157 mg/dL (<150)
[2024-11-08 23:53] LABS: Glucose Point of Care 141 mg/dl (65-105)
[2024-11-09] VITALS (10 sets, daily range): BP systolic 109–147; BP diastolic 68–92; PULSE 57–80; RESP 13–18; TEMP 36.3–37.1; O2SAT 96–98
[2024-11-09] MEDS: cefTRIAXone 2 GM/NS 100 ML 2 GM/100 ML BAG IVPB (02:41)
[2024-11-09] MEDS: AZITHROMYCIN 500 MG/NS 250 ML 500 MG/250 ML BAG 250 MG IVPB (02:44)
[2024-11-09 04:04] LABS: Basophils Percent Auto 0.4 % (0.2-1.2); Eosinophils Percent Auto 0.1 % (0-4.4); Hemoglobin 17.1 g/dL (14.0-18.0); Immature Granulocyte Absolute 0.16 K/mm3 (0.00-0.031); Immature Granulocyte Percent A 1.4 % (0-0.5); Lymphocytes Absolute Auto 1.56 K/mm3 (0.9-3.2); Lymphocytes Percent Auto 13.9 % (18.3-44.2); Mean Corpuscular HGB Conc 34.9 g/dl (32-36); Mean Corpuscular Volume 94.6 fl (80-100); Monocytes Absolute Auto 0.9 K/mm3 (0.1-0.6); Monocytes Percent Auto 8.3 % (2.6-8.5); Neutrophils Absolute Auto 8.5 K/mm3 (1.3-6.7); Neutrophils Percent Auto 75.9 % (45.5-73.1); Platelet Count Result 237 k/mm3 (150-375); Red Blood Count 5.18 M/mm3 (4.6-6.20); Red Cell Distribution Width 11.8 % (11.5-14.5); White Blood Count 11.2 K/mm3 (4.5-10.0)
[2024-11-09 04:15] LABS: Alanine Aminotransferase 33 U/L (6-50); Albumin Level 4.4 g/dL (3.5-5.1); Alkaline Phosphatase 50 U/L (38-126); Anion Gap 13 mmol/L (4-12); Aspartate Amino Transferase 29 U/L (17-59); Bilirubin,Total 0.6 mg/dL (0.2-1.3); Blood Urea Nitrogen 30 mg/dL (9-20); Calcium 9.1 mg/dL (8.4-10.2); Carbon Dioxide 18 mmol/L (22-30); Chloride 105 mmol/L (98-107); Estimated CRCL calculation 63 ml/min; Estimated Glomerular Filt Rate > 60; Glucose 128 mg/dL (65-110); Magnesium 2.4 mg/dL (1.6-2.3); Phosphorus 4.6 mg/dL (2.5-4.5); Potassium 4.4 mmol/L (3.4-5.0); Sodium 136 mmol/L (137-145)
[2024-11-09 04:18] LABS: INR 1.1; Prothrombin Time 14.6 Seconds (11.1-14.7)
[2024-11-09] MEDS: ONDANSETRON INJ 4 MG/2 ML VIAL IV PUSH (07:45)
--- NOTE | 2024-11-09 07:59 | PM.PNCARD ---
Progress Note: A&P Assessment and Plan (1) Elevated troponin: Code(s): R79.89 - Other specified abnormal findings of blood chemistry Status: Acute Plan 74-year-old man with: Coronavirus infection and pneumonia with elevated troponin in this setting. Troponinemia is consistent with his acute respiratory illness does not appear to be having any evidence of an acute coronary syndrome. Left ventricular systolic dysfunction is noted on echo and he is on appropriate medical therapy for this. Following recovery from this illness repeat ischemia evaluation will be considered depending on his clinical course a and or recovery of systolic function. Sharif Paniagua MD [facility] Subjective Date/time seen: Date of service: 11/09/24 07:59 Interval history: Reason for visit: Elevated troponin HPI: We are consulted for elevated troponin. Unable to obtain any history from the patient as he is intubated and sedated, therefore, history obtained from the medical chart and medical team; no family at bedside to provide history. Renaldo is a 74 year old male with hyperlipidemia and GERD who presented to [place] after he was found unresponsive after a fall. Reportedly had fever, aches, cough, shortness of breath with exertion over past couple of days, along with poor appetite. heard a thud and found him on the floor. He was still breathing, but unresponsive. Upon EMS arrival, he had agonal respirations, and a supraglottic airway was inserted. EKG on admission shows heart rate of 140bpm, possibly fast sinus, cannot rule out atrial flutter, LBBB. Telemetry since admission shows sinus rhythm with narrow QRS. Initial troponin negative, increased to 0.406. NT pro BNP mildly elevated at 372. COVID positive. Chest CT shows extensive patchy airspace consolidation, consistent with pneumonia. Date of service 11/06: Remains intubated. Tele with occasional PVCs, no recurrence of LBBB. Date of service : He was extubated yesterday, stable overall. Date of service 11/09/2024: Still in ICU room 8. Extubated appears to be relatively comfortable other than nausea which is been off and on through the night Exam Const: General: comfortable and no acute distress Orientation/consciousness: patient oriented x3 Other: Ill appearing male, intubated/sedated HENMT: Head: normal to inspection Other: OETT in place Eyes: General: appearance normal, both eyes and all related structures Neck: Neck: normal visual inspection Resp: Effort & Inspection: normal respiratory effort Other: On mechanical ventilation. Cardio: Rate: regular rate Rhythm: regular rhythm Heart sounds: no murmurs Neuro: General: patient oriented x3 Other: Sedated Extrem: General: no edema Psych: Appearance: grossly normal Mental Status: mental status grossly normal Objective Data Vital Signs Vital Signs: Vital Signs - 24 hr 11/08/24 08:00 11/08/24 08:00 11/08/24 08:00 Temperature 37.3 C Pulse Rate 82 82 97 Respiratory Rate 14 14 Blood Pressure 129/67 Pulse Oximetry 97 97 Oxygen Delivery Nasal Cannula Oxygen Flow Rate 1 Fraction of Inspired Oxygen 11/08/24 08:38 11/08/24 09:27 11/08/24 10:00 Temperature Pulse Rate 78 71 Respiratory Rate Blood Pressure Pulse Oximetry 96 Oxygen Delivery Nasal Cannula Oxygen Flow Rate 1 Fraction of Inspired Oxygen 11/08/24 10:00 11/08/24 12:00 11/08/24 12:00 Temperature 37.3 C 37.2 C Pulse Rate 77 72 72 Respiratory Rate 16 12 Blood Pressure 127/66 126/68 Pulse Oximetry 96 97 Oxygen Delivery Oxygen Flow Rate Fraction of Inspired Oxygen 11/08/24 12:00 11/08/24 14:00 11/08/24 16:00 Temperature Pulse Rate 76 76 80 Respiratory Rate 15 Blood Pressure Pulse Oximetry 99 Oxygen Delivery Room Air Oxygen Flow Rate Fraction of Inspired Oxygen 11/08/24 16:00 11/08/24 16:00 11/08/24 18:00 Temperature 37.2 C Pulse Rate 74 75 71 Respiratory Rate 14 17 Blood Pressure Pulse Oximetry 98 100 Oxygen Delivery Room Air Oxygen Flow Rate Fraction of Inspired Oxygen 11/08/24 20:00 11/08/24 20:00 11/08/24 20:10 Temperature 37.2 C Pulse Rate 73 72 72 Respiratory Rate 20 Blood Pressure 171/91 H Pulse Oximetry 98 Oxygen Delivery Oxygen Flow Rate Fraction of Inspired Oxygen 11/08/24 20:15 11/08/24 21:00 11/08/24 22:00 Temperature Pulse Rate 72 75 68 Respiratory Rate 20 16 Blood Pressure 156/87 H Pulse Oximetry 98 97 Oxygen Delivery Room Air Oxygen Flow Rate Fraction of Inspired Oxygen 28 11/08/24 22:00 11/08/24 23:50 11/09/24 00:00 Temperature 36.9 C Pulse Rate 66 67 68 Respiratory Rate 15 14 14 Blood Pressure 146/86 H 147/84 H Pulse Oximetry 96 96 97 Oxygen Delivery Room Air Oxygen Flow Rate Fraction of Inspired Oxygen 28 11/09/24 00:00 11/09/24 02:00 11/09/24 03:45 Temperature Pulse Rate 65 62 64 Respiratory Rate 15 Blood Pressure Pulse Oximetry 97 Oxygen Delivery Room Air Oxygen Flow Rate Fraction of Inspired Oxygen 11/09/24 04:00 11/09/24 04:00 Temperature 37.1 C Pulse Rate 58 L 57 L Respiratory Rate 15 Blood Pressure 132/86 Pulse Oximetry 96 Oxygen Delivery Oxygen Flow Rate Fraction of Inspired Oxygen Intake/Output Intake/Output: Intake & Output 11/06/24 11/07/24 11/08/24 11/09/24 23:59 23:59 23:59 23:59 Intake Total 2851.0 2234.7 350 550 Output Total 675 4550 3225 600 Balance 2176.0 -2315.3 -2875 -50 Meds/Results Medications: Active Medications Generic Name Dose Route Start Last Admin Trade Name Freq PRN Reason Stop Dose Admin Acetaminophen 650 mg 11/05/24 01:33 11/08/24 04:27 Acetaminophen 650 Mg Suppository RECTAL 650 mg Q6H PRN Administration Mild Pain (1-3) or Fever Albuterol/Ipratropium 3 ml 11/07/24 08:06 11/07/24 08:43 Ipratropium 0.5 Mg/Albuterol Sulfate 2.5 Mg Ampul.Neb 3 Ml INHALATION 3 ml Q6HRT PRN Administration Wheezing Aspirin 81 mg 11/06/24 08:00 11/08/24 08:38 Aspirin 81 Mg Chewable Tablet PO 81 mg DAILY@0800 MILLA Administration Atorvastatin Calcium 40 mg 11/06/24 09:00 11/08/24 08:38 Atorvastatin 40 Mg Tablet PO 40 mg DAILY MILLA Administration Dexamethasone Sodium Phosphate 6 mg 11/05/24 01:25 11/08/24 08:39 Dexamethasone Sod Phos Inj 10 Mg/Ml 1 Ml Vial IV PUSH 11/14/24 09:01 6 mg DAILY MILLA Administration Dextrose 12.5 gm 11/07/24 08:06 Dextrose 50% 25 Gm/50 Ml Syringe IV PUSH PRN PRN Hypoglycemia Protocol Enoxaparin Sodium 40 mg 11/05/24 09:00 11/08/24 08:38 Enoxaparin 40 Mg/0.4 Ml Syringe SUB-Q 40 mg DAILY MILLA Administration Glucagon 1 mg 11/07/24 08:06 Glucagon For Inj 1 Mg Vial IM PRN PRN Hypoglycemia Protocol Glucose 15 gm 11/07/24 08:06 Glucose Oral Gel 15 Gm Of Glucse In 37.5 Gm Tube PO PRN PRN Hypoglycemia Protocol Hydralazine HCl 20 mg 11/08/24 07:39 Hydralazine Hcl 20 Mg/Ml Vial IV PUSH Q4H PRN SBP > 160 - 2nd Choice Ceftriaxone Sodium 2 gm in 100 mls @ 200 mls/hr 11/06/24 02:00 11/09/24 03:11 Rocephin 2 Gm/Ns 100 Ml IVPB Infused Q24H MILLA Infusion Remdesivir 100 mg in 250 mls @ 250 mls/hr 11/06/24 10:00 11/08/24 10:22 IVPB 11/09/24 10:59 250 mls/hr Q24H MILLA Administration Azithromycin 500 mg in 250 mls @ 250 mls/hr 11/06/24 03:00 11/09/24 03:45 Zithromax IVPB 11/10/24 02:59 Infused Q24H MILLA Infusion Dextrose 1,000 mls @ 100 mls/hr 11/07/24 08:06 Dextrose 5% 1,000 Ml IVPB PRN PRN Hypoglycemia Protocol Insulin Aspart 3 - 6 units 11/07/24 09:00 11/09/24 04:24 Insulin Aspart (*Bkc) 100 Units/Ml SUB-Q Not Given Q4HR [facility] Protocol Labetalol HCl 20 mg 11/08/24 07:37 11/08/24 20:10 Labetalol Hcl Inj 100 Mg/20 Ml Vial IV PUSH 20 mg Q4H PRN Administration SBP > 160 and HR> 60 -1st choice Metoprolol Succinate 25 mg 11/08/24 09:00 11/08/24 08:38 Metoprolol Succinate Ext Rel 25 Mg Tabcr PO 25 mg QAM MILLA Administration Ondansetron HCl 4 mg 11/05/24 01:33 11/09/24 07:45 Ondansetron Inj 4 Mg/2 Ml Vial IV PUSH 4 mg Q4H PRN Administration Nausea Pantoprazole Sodium 40 mg 11/05/24 09:00 11/08/24 08:39 Pantoprazole Sodium Iv 40 Mg Vial IV PUSH 40 mg QAM MILLA Administration Sacubitril/Valsartan 1 tab 11/07/24 21:00 11/08/24 20:11 Sacubitril/Valsartan 24-26 Mg Tablet PO 1 tab Q12HR MILLA Administration Spironolactone 25 mg 11/08/24 09:00 11/08/24 08:38 Spironolactone 25 Mg Tablet PO 25 mg QAM MILLA Administration Radiology Results: ITS Impressions Chest/Abdomen/Pelvis CT 11/05/24 07:01 IMPRESSION: 1. Extensive patchy airspace consolidation, consistent with pneumonia. 2: Sclerotic lesion left femoral head, most likely benign bone island, although in the presence of enlarged prostate gland, metastatic disease secondary to prostate cancer should be considered. Head/Cervical Spine/Facial Bones CT 11/05/24 07:07 IMPRESSION: 1. No acute abnormality of the facial bones or cervical spine. 2: Severe cervical spondylosis. 3: Patchy upper lobe infiltrates, consistent with pneumonia. Head CT 11/05/24 07:11 IMPRESSION: 1. No acute intracranial abnormality. Abdomen X-Ray 11/05/24 07:19 IMPRESSION: 1: NG tube tip in the stomach. Carotid Doppler Study 11/06/24 15:13 IMPRESSION: 1. Less than 50% stenosis in the right internal carotid artery. 2. Less than 50% stenosis in the left internal carotid artery. Modified Barium Swallow 11/08/24 14:42 IMPRESSION: 1. Normal modified barium swallow. 2. Please refer to the speech therapy report for recommendations. Chest X-Ray 11/09/24 05:55 IMPRESSION: 1. Stable mild airspace opacities in left lower lung zone, consistent with pneumonia. Labs Labs: Laboratory Results - last 24 hr 11/08/24 11/08/24 11/08/24 04:10 08:43 12:51 WBC RBC Hgb Hct MCV MCH MCHC RDW Plt Count MPV Immature Gran % (Auto) Neut % (Auto) Lymph % (Auto) [place] % (Auto) Eos % (Auto) Baso % (Auto) Lymph # (Auto) [place] # (Auto) Eos # (Auto) Baso # (Auto) Abs Immat Gran (auto) Absolute Neuts (auto) Absolute Nucleated RBC Nucleated RBC % PT INR Sodium Potassium Chloride Carbon Dioxide Anion Gap BUN Creatinine Estim Creat Clear Calc Estimated GFR Glucose POC Capillary Glucose 116 H 152 H Calcium Phosphorus Magnesium Total Bilirubin Direct Bilirubin AST ALT Alkaline Phosphatase Total Protein Albumin Triglycerides 157 H 11/08/24 11/08/24 11/08/24 16:42 20:09 23:49 WBC RBC Hgb Hct MCV MCH MCHC RDW Plt Count MPV Immature Gran % (Auto) Neut % (Auto) Lymph % (Auto) [place] % (Auto) Eos % (Auto) Baso % (Auto) Lymph # (Auto) [place] # (Auto) Eos # (Auto) Baso # (Auto) Abs Immat Gran (auto) Absolute Neuts (auto) Absolute Nucleated RBC Nucleated RBC % PT INR Sodium Potassium Chloride Carbon Dioxide Anion Gap BUN Creatinine Estim Creat Clear Calc Estimated GFR Glucose POC Capillary Glucose 146 H 120 H 141 H Calcium Phosphorus Magnesium Total Bilirubin Direct Bilirubin AST ALT Alkaline Phosphatase Total Protein Albumin Triglycerides 11/09/24 03:59 WBC 11.2 H RBC 5.18 Hgb 17.1 Hct 49.0 MCV 94.6 MCH 33.0 MCHC 34.9 RDW 11.8 Plt Count 237 MPV 10.0 Immature Gran % (Auto) 1.4 H Neut % (Auto) 75.9 H Lymph % (Auto) 13.9 L [place] % (Auto) 8.3 Eos % (Auto) 0.1 Baso % (Auto) 0.4 Lymph # (Auto) 1.56 [place] # (Auto) 0.9 H Eos # (Auto) 0.0 Baso # (Auto) 0.0 Abs Immat Gran (auto) 0.16 H Absolute Neuts (auto) 8.5 H Absolute Nucleated RBC 0.000 Nucleated RBC % 0.0 PT 14.6 INR 1.1 Sodium 136 L Potassium 4.4 Chloride 105 Carbon Dioxide 18 L Anion Gap 13 H BUN 30 H Creatinine 1.00 Estim Creat Clear Calc 63 Estimated GFR > 60 Glucose 128 H POC Capillary Glucose Calcium 9.1 Phosphorus 4.6 H Magnesium 2.4 H Total Bilirubin 0.6 Direct Bilirubin 0.0 AST 29 ALT 33 Alkaline Phosphatase 50 Total Protein 8.0 Albumin 4.4 Triglycerides
[2024-11-09] MEDS: PANTOPRAZOLE SODIUM IV 40 MG VIAL IV PUSH (08:23)
[2024-11-09] MEDS: SACUBITRIL/VALSARTAN 24-26 MG TABLET 1 TAB PO ×2 (08:24→20:23)
[2024-11-09] MEDS: METOPROLOL SUCCINATE EXT REL 25 MG TABCR PO (08:24)
[2024-11-09] MEDS: dexAMETHasone SOD PHOS INJ 10 MG/ML 1 ML VIAL 6 MG IV PUSH (08:24)
[2024-11-09] MEDS: ASPIRIN 81 MG CHEWABLE TABLET PO (08:24)
[2024-11-09] MEDS: ENOXAPARIN 40 MG/0.4 ML SYRINGE SUB-Q (08:24)
[2024-11-09] MEDS: ATORVASTATIN 40 MG TABLET PO (08:24)
[2024-11-09] MEDS: SPIRONOLACTONE 25 MG TABLET PO (08:36)
[2024-11-09 08:37] LABS: Glucose Point of Care 115 mg/dl (65-105)
--- NOTE | 2024-11-09 09:28 | PM.IMPN ---
Progress Note: A&P Assessment and Plan (1) Acute respiratory failure with hypoxia: Code(s): J96.01 - Acute respiratory failure with hypoxia Status: Acute Assessment and Plan: Acute respiratory failure status post fall/syncope, agonal breathing, initially i-Gel (supraglottic airway) was inserted Appears to be multifactorial secondary to pneumonia could be aspiration, congestive heart failure and patient also tested positive for COVID-19. He has been vaccinated in the past 11/05:Patient was intubated in the ER 11/08 extubated after a successful weaning trial Weaned off of oxygen. Continue Incentive spirometry. - chest x-ray and ABG reviewed -SARS-CoV-2 PCR was positive -continue bronchodilators but change to p.r.n. -patient received Lasix IV earlier.. Hold further dosing today -continue Rocephin and azithromycin for course. Off vancomycin -continue dexamethasone and remdesivir for the course -isolation 11/05: CT chest abdomen and pelvis 1. Extensive patchy airspace consolidation, consistent with pneumonia. 2: Sclerotic lesion left femoral head, most likely benign bone island, although in the presence of enlarged prostate gland, metastatic disease secondary to prostate cancer should be considered. (2) COVID-19: Code(s): U07.1 - COVID-19 Status: Acute Assessment and Plan: Patient tested positive for SARS-CoV-2 PCR PCR -pneumonia could be related to that or bacterial pneumonia -patient received a dose of tocilizumab in the ER -continue dexamethasone remdesivir (3) Pneumonia: Code(s): J18.9 - Pneumonia, unspecified organism Status: Acute Assessment and Plan: Extensive pneumonia seen on CT chest as above - continue azithromycin, ceftriaxone (11/05). Discontinue vancomycin -MRSA screen is negative -11/05: blood cultures negative x2 for -11/05: Sputum cultures obtained and (4) Elevated troponin: Code(s): R79.89 - Other specified abnormal findings of blood chemistry Status: Acute Assessment and Plan: Elevated troponins, initial EKG showed possible atrial flutter, LBBB -appreciate cardiology evaluation and recommendations, -continue aspirin and statin -elevated troponin could be related to type 2 infarct secondary to pneumonia, CAD, arrhythmias which could be related to syncopal episode, -ischemic evaluation depending on clinical course -Lasix IV as needed 11/05/2024: Echocardiogram Summary 1. Left ventricular chamber dimension is normal. 2. There is mildly increased left ventricular wall thickness. 3. Left ventricular systolic function is moderately reduced, estimated at 30-35%. 4. Global hypokinesis with more pronounced hypokinesis of the anteroseptum, mid inferoseptum, apex. 5. The left ventricular diastolic function is grade I diastolic dysfunction. 6. Right ventricular systolic function is normal. 7. Left atrial chamber dimension is moderately enlarged. 8. No significant valvular disease. (5) Syncope: Code(s): R55 - Syncope and collapse Status: Acute Assessment and Plan: Patient presented with fall could be related to syncope secondary to hypoxia, a cardiac arrhythmias as when patient arrived he was possible in atrial flutter, tachycardic -elevated troponins, could be related to coronary artery disease/type 2 infarct -echocardiogram as above -less than 50% stenosis bilaterally on carotid Doppler 11/05:CT head on admission: No acute intracranial abnormality. 11/05: CT cervical spine/facial bones on admission: 1. No acute abnormality of the facial bones or cervical spine.2: Severe cervical spondylosis.3: Patchy upper lobe infiltrates, consistent with pneumonia. (6) Essential hypertension: Code(s): I10 - Essential (primary) hypertension Status: Acute Assessment and Plan: Continue Entresto and metoprolol P.r.n. labetalol and hydralazine (7) Hyperlipidemia: Code(s): E78.5 - Hyperlipidemia, unspecified Status: Acute Assessment and Plan: Continue atorvastatin (8) Nausea: Code(s): R11.0 - Nausea Status: Acute Assessment and Plan: Patient has bowel sounds and abdomen is not tender Check KUB Continue Zofran. Add p.r.n. Compazine Plan DVT prophylaxis: Enoxaparin Stress ulcer prophylaxis: Protonix Nutrition: Diet ordered Code Status: Full code Consult PT OT Transfer to [place] today Subjective Date/time seen: 11/09/24 Patient complains of nausea this morning. No episodes of vomiting. He states the nausea started this morning when he woke up. He is still not sleep well. He denies any other complaints. Patient denies fever, chest pain, shortness of breath, cough, vomiting, abdominal pain,, diarrhea, headache or constipation. All other systems were reviewed and were negative Patient is now on room air. Sinus bradycardia on the monitor. He has some PVCs. Blood pressure is adequate. Interval history: Reason for consult: Fall, acute respiratory failure, syncope, COVID-19 Review of Systems Review of Systems: All systems reviewed & are unremarkable except as noted in HPI and below (HPI) Exam Narrative: General: Alert awake and in no distress s HEENT:? Pupils equal and reactive, sclera is clear, Neck:? No tenderness Respiratory:? Clear breath sound, decreased air entry at bases with no wheezing Cardiac:? S1-S2 is normal, regular rate and rhythm, no murmurs Abdomen:? Soft, nontender, nondistended, normoactive bowel sounds Extremities:? No edema, palpable pedal pulses Neuro:? Patient AO x3, moves and follows commands all 4 extremities Skin:? No skin lesions noted Psych:? Normal speech and affect Objective Data Vital Signs Vital Signs: Vital Signs - 24 hr 11/08/24 10:00 11/08/24 10:00 11/08/24 12:00 Temperature 37.3 C Pulse Rate 71 77 72 Respiratory Rate 16 Blood Pressure 127/66 Pulse Oximetry 96 Oxygen Delivery Fraction of Inspired Oxygen 11/08/24 12:00 11/08/24 12:00 11/08/24 14:00 Temperature 37.2 C Pulse Rate 72 76 76 Respiratory Rate 12 15 Blood Pressure 126/68 Pulse Oximetry 97 99 Oxygen Delivery Room Air Fraction of Inspired Oxygen 11/08/24 16:00 11/08/24 16:00 11/08/24 16:00 Temperature 37.2 C Pulse Rate 80 74 75 Respiratory Rate 14 17 Blood Pressure Pulse Oximetry 98 100 Oxygen Delivery Room Air Fraction of Inspired Oxygen 11/08/24 18:00 11/08/24 20:00 11/08/24 20:00 Temperature 37.2 C Pulse Rate 71 73 72 Respiratory Rate 20 Blood Pressure 171/91 H Pulse Oximetry 98 Oxygen Delivery Fraction of Inspired Oxygen 11/08/24 20:10 11/08/24 20:15 11/08/24 21:00 Temperature Pulse Rate 72 72 75 Respiratory Rate 20 16 Blood Pressure 156/87 H Pulse Oximetry 98 97 Oxygen Delivery Room Air Fraction of Inspired Oxygen 28 11/08/24 22:00 11/08/24 22:00 11/08/24 23:50 Temperature Pulse Rate 68 66 67 Respiratory Rate 15 14 Blood Pressure 146/86 H Pulse Oximetry 96 96 Oxygen Delivery Room Air Fraction of Inspired Oxygen 28 11/09/24 00:00 11/09/24 00:00 11/09/24 02:00 Temperature 36.9 C Pulse Rate 68 65 62 Respiratory Rate 14 Blood Pressure 147/84 H Pulse Oximetry 97 Oxygen Delivery Fraction of Inspired Oxygen 11/09/24 03:45 11/09/24 04:00 11/09/24 04:00 Temperature 37.1 C Pulse Rate 64 58 L 57 L Respiratory Rate 15 15 Blood Pressure 132/86 Pulse Oximetry 97 96 Oxygen Delivery Room Air Fraction of Inspired Oxygen 11/09/24 08:24 Temperature Pulse Rate 61 Respiratory Rate Blood Pressure Pulse Oximetry Oxygen Delivery Fraction of Inspired Oxygen Intake/Output Intake/Output: Intake & Output 11/06/24 11/07/24 11/08/24 11/09/24 23:59 23:59 23:59 23:59 Intake Total 2851.0 2234.7 350 550 Output Total 675 4550 3225 600 Balance 2176.0 -2315.3 -2875 -50 Meds/Results Medications: Active Medications Generic Name Dose Route Start Last Admin Trade Name Freq PRN Reason Stop Dose Admin Acetaminophen 650 mg 11/05/24 01:33 11/08/24 04:27 Acetaminophen 650 Mg Suppository RECTAL 650 mg Q6H PRN Administration Mild Pain (1-3) or Fever Albuterol/Ipratropium 3 ml 11/07/24 08:06 11/07/24 08:43 Ipratropium 0.5 Mg/Albuterol Sulfate 2.5 Mg Ampul.Neb 3 Ml INHALATION 3 ml Q6HRT PRN Administration Wheezing Aspirin 81 mg 11/06/24 08:00 11/09/24 08:24 Aspirin 81 Mg Chewable Tablet PO 81 mg DAILY@0800 MILLA Administration Atorvastatin Calcium 40 mg 11/06/24 09:00 11/09/24 08:24 Atorvastatin 40 Mg Tablet PO 40 mg DAILY MILLA Administration Dexamethasone Sodium Phosphate 6 mg 11/05/24 01:25 11/09/24 08:24 Dexamethasone Sod Phos Inj 10 Mg/Ml 1 Ml Vial IV PUSH 11/14/24 09:01 6 mg DAILY MILLA Administration Dextrose 12.5 gm 11/07/24 08:06 Dextrose 50% 25 Gm/50 Ml Syringe IV PUSH PRN PRN Hypoglycemia Protocol Enoxaparin Sodium 40 mg 11/05/24 09:00 11/09/24 08:24 Enoxaparin 40 Mg/0.4 Ml Syringe SUB-Q 40 mg DAILY MILLA Administration Glucagon 1 mg 11/07/24 08:06 Glucagon For Inj 1 Mg Vial IM PRN PRN Hypoglycemia Protocol Glucose 15 gm 11/07/24 08:06 Glucose Oral Gel 15 Gm Of Glucse In 37.5 Gm Tube PO PRN PRN Hypoglycemia Protocol Hydralazine HCl 20 mg 11/08/24 07:39 Hydralazine Hcl 20 Mg/Ml Vial IV PUSH Q4H PRN SBP > 160 - 2nd Choice Ceftriaxone Sodium 2 gm in 100 mls @ 200 mls/hr 11/06/24 02:00 11/09/24 03:11 Rocephin 2 Gm/Ns 100 Ml IVPB Infused Q24H MILLA Infusion Remdesivir 100 mg in 250 mls @ 250 mls/hr 11/06/24 10:00 11/08/24 10:22 IVPB 11/09/24 10:59 250 mls/hr Q24H MILLA Administration Azithromycin 500 mg in 250 mls @ 250 mls/hr 11/06/24 03:00 11/09/24 03:45 Zithromax IVPB 11/10/24 02:59 Infused Q24H MILLA Infusion Dextrose 1,000 mls @ 100 mls/hr 11/07/24 08:06 Dextrose 5% 1,000 Ml IVPB PRN PRN Hypoglycemia Protocol Insulin Aspart 3 - 6 units 11/07/24 09:00 11/09/24 08:38 Insulin Aspart (*Bkc) 100 Units/Ml SUB-Q Not Given Q4HR [facility] Protocol Labetalol HCl 20 mg 11/08/24 07:37 11/08/24 20:10 Labetalol Hcl Inj 100 Mg/20 Ml Vial IV PUSH 20 mg Q4H PRN Administration SBP > 160 and HR> 60 -1st choice Metoprolol Succinate 25 mg 11/08/24 09:00 11/09/24 08:24 Metoprolol Succinate Ext Rel 25 Mg Tabcr PO 25 mg QAM MILLA Administration Ondansetron HCl 4 mg 11/05/24 01:33 11/09/24 07:45 Ondansetron Inj 4 Mg/2 Ml Vial IV PUSH 4 mg Q4H PRN Administration Nausea Pantoprazole Sodium 40 mg 11/05/24 09:00 11/09/24 08:23 Pantoprazole Sodium Iv 40 Mg Vial IV PUSH 40 mg QAM MILLA Administration Sacubitril/Valsartan 1 tab 11/07/24 21:00 11/09/24 08:24 Sacubitril/Valsartan 24-26 Mg Tablet PO 1 tab Q12HR MILLA Administration Spironolactone 25 mg 11/08/24 09:00 11/09/24 08:36 Spironolactone 25 Mg Tablet PO 25 mg QAM MILLA Administration Radiology Results: ITS Impressions Chest/Abdomen/Pelvis CT 11/05/24 07:01 IMPRESSION: 1. Extensive patchy airspace consolidation, consistent with pneumonia. 2: Sclerotic lesion left femoral head, most likely benign bone island, although in the presence of enlarged prostate gland, metastatic disease secondary to prostate cancer should be considered. Head/Cervical Spine/Facial Bones CT 11/05/24 07:07 IMPRESSION: 1. No acute abnormality of the facial bones or cervical spine. 2: Severe cervical spondylosis. 3: Patchy upper lobe infiltrates, consistent with pneumonia. Head CT 11/05/24 07:11 IMPRESSION: 1. No acute intracranial abnormality. Abdomen X-Ray 11/05/24 07:19 IMPRESSION: 1: NG tube tip in the stomach. Carotid Doppler Study 11/06/24 15:13 IMPRESSION: 1. Less than 50% stenosis in the right internal carotid artery. 2. Less than 50% stenosis in the left internal carotid artery. Modified Barium Swallow 11/08/24 14:42 IMPRESSION: 1. Normal modified barium swallow. 2. Please refer to the speech therapy report for recommendations. Chest X-Ray 11/09/24 05:55 IMPRESSION: 1. Stable mild airspace opacities in left lower lung zone, consistent with pneumonia. Labs Labs: Laboratory Results - last 24 hr 11/08/24 11/08/24 11/08/24 04:10 12:51 16:42 WBC RBC Hgb Hct MCV MCH MCHC RDW Plt Count MPV Immature Gran % (Auto) Neut % (Auto) Lymph % (Auto) [place] % (Auto) Eos % (Auto) Baso % (Auto) Lymph # (Auto) [place] # (Auto) Eos # (Auto) Baso # (Auto) Abs Immat Gran (auto) Absolute Neuts (auto) Absolute Nucleated RBC Nucleated RBC % PT INR Sodium Potassium Chloride Carbon Dioxide Anion Gap BUN Creatinine Estim Creat Clear Calc Estimated GFR Glucose POC Capillary Glucose 152 H 146 H Calcium Phosphorus Magnesium Total Bilirubin Direct Bilirubin AST ALT Alkaline Phosphatase Total Protein Albumin Triglycerides 157 H 11/08/24 11/08/24 11/09/24 20:09 23:49 03:59 WBC 11.2 H RBC 5.18 Hgb 17.1 Hct 49.0 MCV 94.6 MCH 33.0 MCHC 34.9 RDW 11.8 Plt Count 237 MPV 10.0 Immature Gran % (Auto) 1.4 H Neut % (Auto) 75.9 H Lymph % (Auto) 13.9 L [place] % (Auto) 8.3 Eos % (Auto) 0.1 Baso % (Auto) 0.4 Lymph # (Auto) 1.56 [place] # (Auto) 0.9 H Eos # (Auto) 0.0 Baso # (Auto) 0.0 Abs Immat Gran (auto) 0.16 H Absolute Neuts (auto) 8.5 H Absolute Nucleated RBC 0.000 Nucleated RBC % 0.0 PT 14.6 INR 1.1 Sodium 136 L Potassium 4.4 Chloride 105 Carbon Dioxide 18 L Anion Gap 13 H BUN 30 H Creatinine 1.00 Estim Creat Clear Calc 63 Estimated GFR > 60 Glucose 128 H POC Capillary Glucose 120 H 141 H Calcium 9.1 Phosphorus 4.6 H Magnesium 2.4 H Total Bilirubin 0.6 Direct Bilirubin 0.0 AST 29 ALT 33 Alkaline Phosphatase 50 Total Protein 8.0 Albumin 4.4 Triglycerides 11/09/24 08:23 WBC RBC Hgb Hct MCV MCH MCHC RDW Plt Count MPV Immature Gran % (Auto) Neut % (Auto) Lymph % (Auto) [place] % (Auto) Eos % (Auto) Baso % (Auto) Lymph # (Auto) [place] # (Auto) Eos # (Auto) Baso # (Auto) Abs Immat Gran (auto) Absolute Neuts (auto) Absolute Nucleated RBC Nucleated RBC % PT INR Sodium Potassium Chloride Carbon Dioxide Anion Gap BUN Creatinine Estim Creat Clear Calc Estimated GFR Glucose POC Capillary Glucose 115 H Calcium Phosphorus Magnesium Total Bilirubin Direct Bilirubin AST ALT Alkaline Phosphatase Total Protein Albumin Triglycerides Quality VTE Prophylaxis VTE prophylaxis: pharmacologic ordered
[2024-11-09] MEDS: REMDESIVIR 100 MG/NS 250 ML 100 MG/250 ML BAG 250 MG IVPB (09:55)
[2024-11-09] MEDS: PROCHLORPERAZINE MALEATE 5 MG TABLET 10 MG PO (10:28)
--- NOTE | 2024-11-09 11:07 | PCNFU ---
Nutrition Follow-Up Complete: Predicted suboptimal energy intake as related to mechanical ventilation as evidenced by NPO/tube feedings. Goal: Meet estimated nutritional needs Patient is progressing towards goal. We will continue current goal. Pt current nutrition is Heart Healthy with Ensure Enlive BID. Last recorded weight is 78.7 kg Bowel Motility: No BM reported. Labs Reviewed: PO4 4.6, Mg 2.4, Glu 128, Na 136 Meds Noted:Protonix, Rocephin Skin:WNL Additional Notes: MBS 11/08-recommending regular consistencies with thin liquids. Diet order advanced to heart healthy diet. Intake has been poor 2/2 to nausea. Diet supplements have been ordered for additional kcal and protein needs. Agree with diet orders. Will monitor weight, labs, skin, diet orders, meds every 5 days.
[2024-11-09 12:06] LABS: Glucose Point of Care 153 mg/dl (65-105)
--- NOTE | 2024-11-09 14:22 | PCPTNOTE ---
14:22 Pt just returned to bed from OT evaluation prior to lunch. To fatigued for PT evaluation. Will reattempt as able
--- NOTE | 2024-11-09 18:23 | PC.NURSE ---
This patient, Renaldo Whitaker, was received from ICU on 11/09/24 at 1823. Patient/family oriented to unit policies and routines
[2024-11-09 21:15] LABS: Glucose Point of Care 141 mg/dl (65-105)
[2024-11-10] VITALS (10 sets, daily range): BP systolic 109–115; BP diastolic 55–69; PULSE 53–99; RESP 16–18; TEMP 36.8–37.3; O2SAT 96–100
--- NOTE | 2024-11-10 | ECHOL_ITS ---
Patient Info Name: Renaldo Whitaker Age: 74 years : 1950 Gender: Male Ht: 72 in Wt: 173 lbs BSA: 2.00 m2 HR: 73 bpm BP: 109 / 55 mmHg Heart Rhythm: Sinus Arrhythmia Technical Quality: Fair Exam Date: 11/10/2024 1:01 PM Exam Location: Echo Lab Patient Status: Inpatient Admit Date: 11/05/2024 Staff Ordering Physician: Samantha Arango Ibm Bpm Architect: Mary Harmon RDCS Attending Provider: Nataly Chavis MD Referring Physician: Conchita DONALDSON; Exam Type: CA echo limited Study Info Indications - CMP Limited two-dimensional transthoracic echocardiogram is performed. Summary 1. There is normal biventricular size and systolic function. 2. There were no significant valvular abnormalities. Left Ventricle The left ventricle is normal in size and systolic function. The left ventricular ejection fraction is visually estimated to be 60-65%. Right Ventricle The right ventricle is normal in size and systolic function. Left Atria The left atrium is normal size. Right Atria The right atrium is normal size. Atrial Septum The atrial septum is not well visualized. Aortic Valve The aortic valve opens well. There is no aortic regurgitation. Pulmonic Valve The pulmonic valve is not well visualized. Mitral Valve The mitral valve is normal. There is no mitral regurgitation. Tricuspid Valve The tricuspid valve is not well visualized. Pericardium/Pleural There is trace pericardial effusion. Inferior Vena Cava The IVC is not well visualized. Aorta The aortic root is not well visualized. Left Ventricular Outflow Tract Name Value Normal LVOT 2D LVOT Diameter 2.0 cm LVOT Doppler LVOT Peak Gradient 4 mmHg LVOT Mean Gradient 2 mmHg LVOT VTI 25 cm LVOT Stroke Volume 76 ml LVOT CO 4.4 l/min LVOT CI 2.2 l/min/m2 Tricuspid Valve Name Value Normal TV Regurgitation Doppler TR Peak Velocity 214 cm/s TR Peak Gradient 18 mmHg Aortic Valve Name Value Normal AV Regurgitation 2D LVOT Area 3.1 cm2 Ventricles Name Value Normal LV Dimensions 2D/MM IVS Diastolic Thickness (2D) 1.1 cm 0.6-1.0 LVID Diastole (2D) 4.4 cm 4.2-5.8 LVIW Diastolic Thickness (2D) 1.0 cm 0.6-1.0 LVID Systole (2D) 2.7 cm 2.5-4.0 LVOT Diameter 2.0 cm LV Mass (2D Cubed) 162.14 g 88.00-224.00 LV Mass Index (2D Cubed) 81 g/m2 49-115 Relative Wall Thickness (2D) 0.47 LV Fractional Shortening/Ejection Fraction 2D/MM LV Fractional Shortening (2D) 38 % 25-43 LV EF (2D Teicholz) 69 % 52-72 LV Diastolic Volume (4C MOD) 131 ml LV EF (4C MOD) 69 % LV Diastolic Volume (2C MOD) 132 ml LV EF (2C MOD) 60 % LV Diastolic Volume (BP MOD) 126 ml 62-150 LV Diastolic Volume Index (BP MOD) 63 ml/m2 34-74 LV Systolic Volume (BP MOD) 44 ml 21-61 LV Systolic Volume Index (BP MOD) 22 ml/m2 11-31 LV EF (BP MOD) 65 % 52-72 LV Diastolic Length (4C) 8.9 cm LV Systolic Length (4C) 7.0 cm LV Stroke Volume (4C MOD) 91 ml Atria Name Value Normal LA Dimensions LA Volume (4C A-L) 50 ml LA Volume (BP A-L) 47 ml RA Dimensions RA Area (4C) 17.6 cm2 <=18.0 Report Signatures
[2024-11-10 00:01] LABS: Glucose Point of Care 125 mg/dl (65-105)
[2024-11-10] MEDS: cefTRIAXone 2 GM/NS 100 ML 2 GM/100 ML BAG IVPB (02:32)
[2024-11-10 05:03] LABS: Basophils Absolute Auto 0.1 K/mm3 (0.0-0.1); Basophils Percent Auto 0.4 % (0.2-1.2); Eosinophils Percent Auto 0.1 % (0-4.4); Hematocrit 52.6 % (42.0-52.0); Immature Granulocyte Absolute 0.37 K/mm3 (0.00-0.031); Immature Granulocyte Percent A 2.3 % (0-0.5); Lymphocytes Absolute Auto 2.31 K/mm3 (0.9-3.2); Lymphocytes Percent Auto 14.6 % (18.3-44.2); Mean Corpuscular HGB Conc 34.2 g/dl (32-36); Mean Corpuscular Hemoglobin 32.8 pg (26-34); Mean Corpuscular Volume 95.8 fl (80-100); Mean Platelet Volume 10.3 fl (7.4-10.4); Monocytes Absolute Auto 1.3 K/mm3 (0.1-0.6); Monocytes Percent Auto 8.2 % (2.6-8.5); Neutrophils Absolute Auto 11.7 K/mm3 (1.3-6.7); Neutrophils Percent Auto 74.4 % (45.5-73.1); Platelet Count Result 297 k/mm3 (150-375); Red Blood Count 5.49 M/mm3 (4.6-6.20); Red Cell Distribution Width 11.8 % (11.5-14.5); White Blood Count 15.8 K/mm3 (4.5-10.0)
[2024-11-10 05:17] LABS: Alanine Aminotransferase 40 U/L (6-50); Albumin Level 4.6 g/dL (3.5-5.1); Alkaline Phosphatase 50 U/L (38-126); Anion Gap 14 mmol/L (4-12); Aspartate Amino Transferase 38 U/L (17-59); Bilirubin,Total 0.7 mg/dL (0.2-1.3); Blood Urea Nitrogen 47 mg/dL (9-20); Carbon Dioxide 19 mmol/L (22-30); Chloride 103 mmol/L (98-107); Estimated CRCL calculation 52 ml/min; Estimated Glomerular Filt Rate 58; Glucose 117 mg/dL (65-110); Magnesium 2.8 mg/dL (1.6-2.3); Phosphorus 5.6 mg/dL (2.5-4.5); Potassium 4.7 mmol/L (3.4-5.0); Sodium 136 mmol/L (137-145)
[2024-11-10] MEDS: ATORVASTATIN 40 MG TABLET PO (08:18)
[2024-11-10] MEDS: dexAMETHasone SOD PHOS INJ 10 MG/ML 1 ML VIAL 6 MG IV PUSH (08:18)
[2024-11-10] MEDS: PANTOPRAZOLE 40 MG TABLET PO ×2 (08:18→20:37)
[2024-11-10] MEDS: ASPIRIN 81 MG CHEWABLE TABLET PO (08:18)
[2024-11-10] MEDS: METOPROLOL SUCCINATE EXT REL 25 MG TABCR PO (08:18)
[2024-11-10] MEDS: SPIRONOLACTONE 25 MG TABLET PO (08:18)
[2024-11-10] MEDS: ENOXAPARIN 40 MG/0.4 ML SYRINGE SUB-Q (08:18)
[2024-11-10] MEDS: SACUBITRIL/VALSARTAN 24-26 MG TABLET 1 TAB PO ×2 (08:18→20:37)
[2024-11-10] MEDS: ONDANSETRON INJ 4 MG/2 ML VIAL IV PUSH (08:25)
--- NOTE | 2024-11-10 15:25 | PM.IMPN ---
Progress Note: A&P Assessment and Plan (1) Acute respiratory failure with hypoxia: Code(s): J96.01 - Acute respiratory failure with hypoxia Status: Acute Assessment and Plan: Patient with acute respiratory failure status post fall/syncope, agonal breathing, initially i-Gel (supraglottic airway) was inserted. Appears to be multifactorial secondary to pneumonia (?aspiration), CHF and/or COVID-19. He has been vaccinated in the past 11/05:Patient was intubated in the ER 11/08 extubated after a successful weaning trial Weaned off of oxygen. Continue Incentive spirometry. 11/05: CT chest abdomen and pelvis 1. Extensive patchy airspace consolidation, consistent with pneumonia. 2: Sclerotic lesion left femoral head, most likely benign bone island, although in the presence of enlarged prostate gland, metastatic disease secondary to prostate cancer should be considered. -continue bronchodilators but change to p.r.n. -patient received Lasix IV earlier. Hold further dosing today -On Rocephin; he completed azithromycin course. Off vancomycin -continue dexamethasone; he completed remdesivir course -isolation; stop abx after 1 week (2) COVID-19: Code(s): U07.1 - COVID-19 Status: Acute Assessment and Plan: Patient tested positive for SARS-CoV-2 PCR PCR -pneumonia could be related to that or bacterial pneumonia -patient received a dose of tocilizumab in the ER. He completed remdesivir. -continue dexamethasone (3) Pneumonia: Code(s): J18.9 - Pneumonia, unspecified organism Status: Acute Assessment and Plan: Extensive pneumonia seen on CT chest as above -treated with azithromycin, ceftriaxone (11/05) and Vanco. -MRSA screen is negative so Vanco discontinued -11/05: blood cultures negative -11/05: Sputum culture negative WBC higher but felt related to steroids. Completed Azithro. On Rocephin. Stop abx after 7 days (4) Elevated troponin: Code(s): R79.89 - Other specified abnormal findings of blood chemistry Status: Acute Assessment and Plan: Elevated troponins, initial EKG showed possible atrial flutter, LBBB Echo 11/05 showing 1. Left ventricular chamber dimension is normal. 2. There is mildly increased left ventricular wall thickness. 3. Left ventricular systolic function is moderately reduced, estimated at 30-35%. 4. Global hypokinesis with more pronounced hypokinesis of the anteroseptum, mid inferoseptum, apex. 5. The left ventricular diastolic function is grade I diastolic dysfunction. 6. Right ventricular systolic function is normal. 7. Left atrial chamber dimension is moderately enlarged. 8. No significant valvular disease. Cardiology consulted and appreciate their evaluation and recommendations, -elevated troponin could be related to type 2 infarct secondary to resp failure, pneumonia, CAD, arrhythmias which could be related to syncopal episode -ischemic evaluation depending on clinical course -Lasix IV as needed. Continue tele (5) Syncope: Code(s): R55 - Syncope and collapse Status: Acute Assessment and Plan: Patient presented with fall could be related to syncope secondary to hypoxia, a cardiac arrhythmias as when patient arrived he was possible in atrial flutter, tachycardic 11/05:CT head on admission: No acute intracranial abnormality. 11/05: CT cervical spine/facial bones on admission: 1. No acute abnormality of the facial bones or cervical spine.2: Severe cervical spondylosis.3: Patchy upper lobe infiltrates, consistent with pneumonia. -elevated troponins, could be related to coronary artery disease/type 2 infarct -echocardiogram as above -less than 50% stenosis bilaterally on carotid Doppler Monitor (6) LV dysfunction: Code(s): I51.9 - Heart disease, unspecified Status: Acute Assessment and Plan: As above. Entresto, Toprol XL and Aldacrtone started. Will need ischemic evaluation per cardiology recommendations. Add Empagliflozin. (7) Essential hypertension: Code(s): I10 - Essential (primary) hypertension Status: Acute Assessment and Plan: BP better controlled Continue Entresto and metoprolol P.r.n. labetalol and hydralazine (8) Hyperlipidemia: Code(s): E78.5 - Hyperlipidemia, unspecified Status: Acute Assessment and Plan: LFTs normal. Continue atorvastatin (9) Nausea: Code(s): R11.0 - Nausea Status: Acute Assessment and Plan: Patient with nausea on 11/09. Had normal bowel sounds and abdomen was not tender. KUB negative. Eating okay now. Continue Zofran and Compazine prn Plan DVT prophylaxis: Enoxaparin Code Status: Full code Consult PT OT Subjective Date/time seen: 11/10/24 15:25 Interval history: 74yo male with HLD and GERD here after being found unresponsive after a fall. Assuming care. Chart reviewed. He was moved out of the ICU yesterday. Odd oxygen now. Feels weak. No Cp or SOB. Eating better. Was up to the chair. Exam Narrative: AF 98.6 109/55 73 18 100% ra Gen - NARD Chest -few scattered rhonchi otherwise clear. CV - RRR S1/S2. Telemetry showing bigeminy Abd - Soft, NT/ND, Positive BS Ext - No pedal edema Psych - Nml mood and affect Skin - Warm and dry Objective Data Vital Signs Vital Signs: Vital Signs - 24 hr 11/09/24 16:00 11/09/24 16:00 11/09/24 20:00 Temperature 98.4 F Pulse Rate 68 60 80 Respiratory Rate 16 Blood Pressure 123/69 Pulse Oximetry 96 Oxygen Delivery 11/09/24 21:09 11/10/24 00:00 11/10/24 04:00 Temperature 97.4 F L Pulse Rate 80 67 53 L Respiratory Rate 18 Blood Pressure 109/68 Pulse Oximetry 97 Oxygen Delivery 11/10/24 06:12 11/10/24 08:00 11/10/24 08:15 Temperature 98.6 F Pulse Rate 99 56 L Respiratory Rate 18 Blood Pressure 109/55 L Pulse Oximetry 100 Oxygen Delivery Room Air 11/10/24 08:18 11/10/24 12:00 11/10/24 14:23 Temperature Pulse Rate 96 73 Respiratory Rate Blood Pressure Pulse Oximetry Oxygen Delivery Room Air Intake/Output Intake/Output: Intake & Output 11/07/24 11/08/24 11/09/24 11/10/24 23:59 23:59 23:59 23:59 Intake Total 2234.7 600 800 Output Total 4550 3225 600 100 Balance -2315.3 -2625 200 -100 Meds/Results Medications: Active Medications Generic Name Dose Route Start Last Admin Trade Name Freq PRN Reason Stop Dose Admin Acetaminophen 650 mg 11/05/24 01:33 11/08/24 04:27 Acetaminophen 650 Mg Suppository RECTAL 650 mg Q6H PRN Administration Mild Pain (1-3) or Fever Albuterol/Ipratropium 3 ml 11/07/24 08:06 11/07/24 08:43 Ipratropium 0.5 Mg/Albuterol Sulfate 2.5 Mg Ampul.Neb 3 Ml INHALATION 3 ml Q6HRT PRN Administration Wheezing Aspirin 81 mg 11/06/24 08:00 11/10/24 08:18 Aspirin 81 Mg Chewable Tablet PO 81 mg DAILY@0800 MILLA Administration Atorvastatin Calcium 40 mg 11/06/24 09:00 11/10/24 08:18 Atorvastatin 40 Mg Tablet PO 40 mg DAILY MILLA Administration Dexamethasone Sodium Phosphate 6 mg 11/05/24 01:25 11/10/24 08:18 Dexamethasone Sod Phos Inj 10 Mg/Ml 1 Ml Vial IV PUSH 11/14/24 09:01 6 mg DAILY MILLA Administration Dextrose 12.5 gm 11/07/24 08:06 Dextrose 50% 25 Gm/50 Ml Syringe IV PUSH PRN PRN Hypoglycemia Protocol Enoxaparin Sodium 40 mg 11/05/24 09:00 11/10/24 08:18 Enoxaparin 40 Mg/0.4 Ml Syringe SUB-Q 40 mg DAILY MILLA Administration Glucagon 1 mg 11/07/24 08:06 Glucagon For Inj 1 Mg Vial IM PRN PRN Hypoglycemia Protocol Glucose 15 gm 11/07/24 08:06 Glucose Oral Gel 15 Gm Of Glucse In 37.5 Gm Tube PO PRN PRN Hypoglycemia Protocol Hydralazine HCl 20 mg 11/08/24 07:39 Hydralazine Hcl 20 Mg/Ml Vial IV PUSH Q4H PRN SBP > 160 - 2nd Choice Ceftriaxone Sodium 2 gm in 100 mls @ 200 mls/hr 11/06/24 02:00 11/10/24 02:32 Rocephin 2 Gm/Ns 100 Ml IVPB 11/11/24 23:59 200 mls/hr Q24H MILLA Administration Dextrose 1,000 mls @ 100 mls/hr 11/07/24 08:06 Dextrose 5% 1,000 Ml IVPB PRN PRN Hypoglycemia Protocol Labetalol HCl 20 mg 11/08/24 07:37 11/08/24 20:10 Labetalol Hcl Inj 100 Mg/20 Ml Vial IV PUSH 20 mg Q4H PRN Administration SBP > 160 and HR> 60 -1st choice Metoprolol Succinate 25 mg 11/08/24 09:00 11/10/24 08:18 Metoprolol Succinate Ext Rel 25 Mg Tabcr PO 25 mg QAM MILLA Administration Ondansetron HCl 4 mg 11/05/24 01:33 11/10/24 08:25 Ondansetron Inj 4 Mg/2 Ml Vial IV PUSH 4 mg Q4H PRN Administration Nausea Pantoprazole Sodium 40 mg 11/10/24 09:00 11/10/24 08:18 Pantoprazole 40 Mg Tablet PO 40 mg Q12HR MILLA Administration Perflutren Lipid Microsphere 0 ml 11/10/24 08:18 Perflutren Lipid Microspheres 1.5 Ml Vial Diluted To 10 Ml Total Volume IV PUSH 11/13/24 08:18 ONCE PRN adequate visualization Protocol Prochlorperazine Maleate 10 mg 11/09/24 09:30 11/09/24 10:28 Prochlorperazine Maleate 5 Mg Tablet PO 10 mg Q6H PRN Administration Nausea And Vomiting Sacubitril/Valsartan 1 tab 11/07/24 21:00 11/10/24 08:18 Sacubitril/Valsartan 24-26 Mg Tablet PO 1 tab Q12HR MILLA Administration Spironolactone 25 mg 11/08/24 09:00 11/10/24 08:18 Spironolactone 25 Mg Tablet PO 25 mg QAM MILLA Administration Radiology Results: ITS Impressions Chest/Abdomen/Pelvis CT 11/05/24 07:01 IMPRESSION: 1. Extensive patchy airspace consolidation, consistent with pneumonia. 2: Sclerotic lesion left femoral head, most likely benign bone island, although in the presence of enlarged prostate gland, metastatic disease secondary to prostate cancer should be considered. Head/Cervical Spine/Facial Bones CT 11/05/24 07:07 IMPRESSION: 1. No acute abnormality of the facial bones or cervical spine. 2: Severe cervical spondylosis. 3: Patchy upper lobe infiltrates, consistent with pneumonia. Head CT 11/05/24 07:11 IMPRESSION: 1. No acute intracranial abnormality. Carotid Doppler Study 11/06/24 15:13 IMPRESSION: 1. Less than 50% stenosis in the right internal carotid artery. 2. Less than 50% stenosis in the left internal carotid artery. Modified Barium Swallow 11/08/24 14:42 IMPRESSION: 1. Normal modified barium swallow. 2. Please refer to the speech therapy report for recommendations. Abdomen X-Ray 11/09/24 09:59 IMPRESSION: 1. Normal bowel gas pattern. Chest X-Ray 11/10/24 06:00 IMPRESSION: 1. No acute cardiopulmonary disease. Labs Labs: Laboratory Results - last 24 hr 11/09/24 11/09/24 11/10/24 21:07 23:56 04:25 WBC 15.8 H RBC 5.49 Hgb 18.0 Hct 52.6 H MCV 95.8 MCH 32.8 MCHC 34.2 RDW 11.8 Plt Count 297 MPV 10.3 Immature Gran % (Auto) 2.3 H Neut % (Auto) 74.4 H Lymph % (Auto) 14.6 L [place] % (Auto) 8.2 Eos % (Auto) 0.1 Baso % (Auto) 0.4 Lymph # (Auto) 2.31 [place] # (Auto) 1.3 H Eos # (Auto) 0.0 Baso # (Auto) 0.1 Abs Immat Gran (auto) 0.37 H Absolute Neuts (auto) 11.7 H Absolute Nucleated RBC 0.000 Nucleated RBC % 0.0 Sodium 136 L Potassium 4.7 Chloride 103 Carbon Dioxide 19 L Anion Gap 14 H BUN 47 H D Creatinine 1.22 Estim Creat Clear Calc 52 Estimated GFR 58 L Glucose 117 H POC Capillary Glucose 141 H 125 H Calcium 9.0 Phosphorus 5.6 H Magnesium 2.8 H Total Bilirubin 0.7 AST 38 ALT 40 Alkaline Phosphatase 50 Total Protein 8.0 Albumin 4.6
[2024-11-10 22:29] LABS: Triglycerides 172 mg/dL (<150)
[2024-11-11] VITALS (13 sets, daily range): BP systolic 77–133; BP diastolic 49–71; PULSE 60–70; RESP 12–18; TEMP 36.4–36.8; O2SAT 94–99
[2024-11-11] MEDS: cefTRIAXone 2 GM/NS 100 ML 2 GM/100 ML BAG IVPB (01:31)
[2024-11-11 04:41] LABS: Basophils Absolute Auto 0.1 K/mm3 (0.0-0.1); Basophils Percent Auto 0.3 % (0.2-1.2); Eosinophils Percent Auto 0.2 % (0-4.4); Hematocrit 48.4 % (42.0-52.0); Hemoglobin 17.1 g/dL (14.0-18.0); Immature Granulocyte Absolute 0.52 K/mm3 (0.00-0.031); Immature Granulocyte Percent A 2.8 % (0-0.5); Lymphocytes Absolute Auto 2.52 K/mm3 (0.9-3.2); Lymphocytes Percent Auto 13.6 % (18.3-44.2); Mean Corpuscular HGB Conc 35.3 g/dl (32-36); Mean Corpuscular Volume 93.4 fl (80-100); Mean Platelet Volume 10.6 fl (7.4-10.4); Monocytes Absolute Auto 1.6 K/mm3 (0.1-0.6); Monocytes Percent Auto 8.5 % (2.6-8.5); Neutrophils Absolute Auto 13.9 K/mm3 (1.3-6.7); Neutrophils Percent Auto 74.6 % (45.5-73.1); Platelet Count Result 286 k/mm3 (150-375); Red Blood Count 5.18 M/mm3 (4.6-6.20); Red Cell Distribution Width 11.6 % (11.5-14.5); White Blood Count 18.6 K/mm3 (4.5-10.0)
[2024-11-11 05:15] LABS: Anion Gap 13 mmol/L (4-12); Blood Urea Nitrogen 59 mg/dL (9-20); Calcium 8.6 mg/dL (8.4-10.2); Carbon Dioxide 17 mmol/L (22-30); Chloride 103 mmol/L (98-107); Estimated CRCL calculation 50 ml/min; Estimated Glomerular Filt Rate 55; Glucose 112 mg/dL (65-110); Phosphorus 4.8 mg/dL (2.5-4.5); Potassium 4.8 mmol/L (3.4-5.0); Sodium 133 mmol/L (137-145)
--- NOTE | 2024-11-11 08:19 | P.PNCA_ITS ---
Progress Note: A&P Assessment and Plan (1) Elevated troponin: Code(s): R79.89 - Other specified abnormal findings of blood chemistry Status: Acute Plan 1. Elevated troponin level 2. Intermittent LBBB 3. Acute hypoxic respiratory failure requiring mechanical ventilation 4. Syncopal episode 5. COVID pneumonia 6. Heart failure with reduced LVEF of 30-35% per TTE 11/05 7. Shoulder pain 8. PVC's and bigeminy 9. JACQUES PLAN: -Elevated troponins probably due to demand ischemia in setting of acute hypoxic respiratory failure, COVID pneumonia. [facility] negative for any significant coronary artery disease in 2019. -Continue ASA 81mg once daily and high intensity statin. -Limited echo yesterday showed normal LVEF. Will hold entresto, spironolactone give hypotension and JACQUES -EKG on admission shows heart rate of 140bpm, possibly fast sinus, cannot rule out atrial flutter, LBBB. Telemetry since admission shows sinus rhythm with narrow QRS, today has had some bigeminy and PVC's. Continue to monitor on tele. -Given syncopal event prior to admission, recommend 30 day event monitor at time of discharge. -MSK pain management per primary service -Asymptomatic. Increase metoprolol to 50mg daily Subjective Date/time seen: 11/11/24 08:19 Interval history: Reason for visit: Elevated troponin HPI: We are consulted for elevated troponin. Unable to obtain any history from the patient as he is intubated and sedated, therefore, history obtained from the medical chart and medical team; no family at bedside to provide history. Renaldo is a 74 year old male with hyperlipidemia and GERD who presented to [place] after he was found unresponsive after a fall. Reportedly had fever, aches, cough, shortness of breath with exertion over past couple of days, along with poor appetite. heard a thud and found him on the floor. He was still breathing, but unresponsive. Upon EMS arrival, he had agonal respirations, and a supraglottic airway was inserted. EKG on admission shows heart rate of 140bpm, possibly fast sinus, cannot rule out atrial flutter, LBBB. Telemetry since admission shows sinus rhythm with narrow QRS. Initial troponin negative, increased to 0.406. NT pro BNP mildly elevated at 372. COVID positive. Chest CT shows extensive patchy airspace consolidation, consistent with pneumonia. Date of service 11/06: Remains intubated. Tele with occasional PVCs, no recurrence of LBBB. Date of service : He was extubated yesterday, stable overall. Date of service 11/09/2024: Still in ICU room 8. Extubated appears to be relatively comfortable other than nausea which is been off and on through the night Date of service 11/11/2024: Complaining of left shoulder pain, left arm num bness/tingling which improved with application of ice pack. He denies chest pain, shortness of breath, palpitations. Telemetry showing frequent bigeminy. Review of Systems Review of Systems: All systems reviewed & are unremarkable except as noted in HPI and below Exam Const: General: comfortable and no acute distress Orientation/consciousness: patient oriented x3 HENMT: Head: normal to inspection Other: Eyes: General: appearance normal, both eyes and all related structures Neck: Neck: normal visual inspection Chest: Other: Reproducible upper left chest/axilla pain to palpation Resp: Effort & Inspection: normal respiratory effort Auscultation: clear to auscultation bilaterally Cardio: Rate: regular rate Rhythm: regular rhythm and abnormal rhythm with ectopic beats Heart sounds: no murmurs Neuro: General: patient oriented x3 Extrem: General: no edema Psych: Appearance: grossly normal Mental Status: mental status grossly normal Objective Data Vital Signs Vital Signs: Vital Signs - 24 hr 11/10/24 12:00 11/10/24 14:00 11/10/24 14:23 Temperature 37.3 C Pulse Rate 73 60 Respiratory Rate 16 Blood Pressure 114/69 Pulse Oximetry 96 Oxygen Delivery Room Air 11/10/24 16:00 11/10/24 19:46 11/10/24 20:00 Temperature 36.8 C Pulse Rate 70 59 L 61 Respiratory Rate 18 Blood Pressure 115/63 Pulse Oximetry 97 Oxygen Delivery 11/11/24 00:00 11/11/24 04:00 11/11/24 04:32 Temperature 36.8 C Pulse Rate 61 61 66 Respiratory Rate 18 Blood Pressure 108/56 L Pulse Oximetry 98 Oxygen Delivery Intake/Output Intake/Output: Intake & Output 11/08/24 11/09/24 11/10/24 11/11/24 23:59 23:59 23:59 23:59 Intake Total 443 453 8087 350 Output Total 3225 600 1300 900 Balance -2625 200 -100 -550 Meds/Results Medications: Active Medications Generic Name Dose Route Start Last Admin Trade Name Freq PRN Reason Stop Dose Admin Acetaminophen 650 mg 11/05/24 01:33 11/08/24 04:27 Acetaminophen 650 Mg Suppository RECTAL 650 mg Q6H PRN Administration Mild Pain (1-3) or Fever Albuterol/Ipratropium 3 ml 11/07/24 08:06 11/07/24 08:43 Ipratropium 0.5 Mg/Albuterol Sulfate 2.5 Mg Ampul.Neb 3 Ml INHALATION 3 ml Q6HRT PRN Administration Wheezing Aspirin 81 mg 11/06/24 08:00 11/10/24 08:18 Aspirin 81 Mg Chewable Tablet PO 81 mg DAILY@0800 MILLA Administration Atorvastatin Calcium 40 mg 11/06/24 09:00 11/10/24 08:18 Atorvastatin 40 Mg Tablet PO 40 mg DAILY MILLA Administration Dextrose 12.5 gm 11/07/24 08:06 Dextrose 50% 25 Gm/50 Ml Syringe IV PUSH PRN PRN Hypoglycemia Protocol Empagliflozin 10 mg 11/11/24 09:00 Empagliflozin 10 Mg Tablet PO DAILY MILLA Enoxaparin Sodium 40 mg 11/05/24 09:00 11/10/24 08:18 Enoxaparin 40 Mg/0.4 Ml Syringe SUB-Q 40 mg DAILY MILLA Administration Glucagon 1 mg 11/07/24 08:06 Glucagon For Inj 1 Mg Vial IM PRN PRN Hypoglycemia Protocol Glucose 15 gm 11/07/24 08:06 Glucose Oral Gel 15 Gm Of Glucse In 37.5 Gm Tube PO PRN PRN Hypoglycemia Protocol Hydralazine HCl 20 mg 11/08/24 07:39 Hydralazine Hcl 20 Mg/Ml Vial IV PUSH Q4H PRN SBP > 160 - 2nd Choice Dextrose 1,000 mls @ 100 mls/hr 11/07/24 08:06 Dextrose 5% 1,000 Ml IVPB PRN PRN Hypoglycemia Protocol Labetalol HCl 20 mg 11/08/24 07:37 11/08/24 20:10 Labetalol Hcl Inj 100 Mg/20 Ml Vial IV PUSH 20 mg Q4H PRN Administration SBP > 160 and HR> 60 -1st choice Metoprolol Succinate 25 mg 11/08/24 09:00 11/10/24 08:18 Metoprolol Succinate Ext Rel 25 Mg Tabcr PO 25 mg QAM MILLA Administration Ondansetron HCl 4 mg 11/05/24 01:33 11/10/24 08:25 Ondansetron Inj 4 Mg/2 Ml Vial IV PUSH 4 mg Q4H PRN Administration Nausea Pantoprazole Sodium 40 mg 11/10/24 09:00 11/10/24 20:37 Pantoprazole 40 Mg Tablet PO 40 mg Q12HR MILLA Administration Perflutren Lipid Microsphere 0 ml 11/10/24 08:18 Perflutren Lipid Microspheres 1.5 Ml Vial Diluted To 10 Ml Total Volume IV PUSH 11/13/24 08:18 ONCE PRN adequate visualization Protocol Prochlorperazine Maleate 10 mg 11/09/24 09:30 11/09/24 10:28 Prochlorperazine Maleate 5 Mg Tablet PO 10 mg Q6H PRN Administration Nausea And Vomiting Sacubitril/Valsartan 1 tab 11/07/24 21:00 11/10/24 20:37 Sacubitril/Valsartan 24-26 Mg Tablet PO 1 tab Q12HR MILLA Administration Spironolactone 25 mg 11/08/24 09:00 11/10/24 08:18 Spironolactone 25 Mg Tablet PO 25 mg QAM MILLA Administration Radiology Results: ITS Impressions Chest/Abdomen/Pelvis CT 11/05/24 07:01 IMPRESSION: 1. Extensive patchy airspace consolidation, consistent with pneumonia. 2: Sclerotic lesion left femoral head, most likely benign bone island, although in the presence of enlarged prostate gland, metastatic disease secondary to prostate cancer should be considered. Head/Cervical Spine/Facial Bones CT 11/05/24 07:07 IMPRESSION: 1. No acute abnormality of the facial bones or cervical spine. 2: Severe cervical spondylosis. 3: Patchy upper lobe infiltrates, consistent with pneumonia. Head CT 11/05/24 07:11 IMPRESSION: 1. No acute intracranial abnormality. Carotid Doppler Study 11/06/24 15:13 IMPRESSION: 1. Less than 50% stenosis in the right internal carotid artery. 2. Less than 50% stenosis in the left internal carotid artery. Modified Barium Swallow 11/08/24 14:42 IMPRESSION: 1. Normal modified barium swallow. 2. Please refer to the speech therapy report for recommendations. Abdomen X-Ray 11/09/24 09:59 IMPRESSION: 1. Normal bowel gas pattern. Chest X-Ray 11/10/24 06:00 IMPRESSION: 1. No acute cardiopulmonary disease. Labs Labs: Laboratory Results - last 24 hr 11/10/24 11/11/24 04:18 03:52 WBC 18.6 H RBC 5.18 Hgb 17.1 Hct 48.4 MCV 93.4 MCH 33.0 MCHC 35.3 RDW 11.6 Plt Count 286 MPV 10.6 H Immature Gran % (Auto) 2.8 H Neut % (Auto) 74.6 H Lymph % (Auto) 13.6 L [place] % (Auto) 8.5 Eos % (Auto) 0.2 Baso % (Auto) 0.3 Lymph # (Auto) 2.52 [place] # (Auto) 1.6 H Eos # (Auto) 0.0 Baso # (Auto) 0.1 Abs Immat Gran (auto) 0.52 H Absolute Neuts (auto) 13.9 H Absolute Nucleated RBC 0.000 Nucleated RBC % 0.0 Sodium 133 L Potassium 4.8 Chloride 103 Carbon Dioxide 17 L Anion Gap 13 H BUN 59 H D Creatinine 1.27 Estim Creat Clear Calc 50 Estimated GFR 55 L Glucose 112 H Calcium 8.6 Phosphorus 4.8 H Magnesium 3.0 H Albumin 4.0 Triglycerides 172 H Quality VTE Prophylaxis VTE prophylaxis: pharmacologic ordered
[2024-11-11] MEDS: PANTOPRAZOLE 40 MG TABLET PO ×2 (08:35→20:40)
[2024-11-11] MEDS: SACUBITRIL/VALSARTAN 24-26 MG TABLET 1 TAB PO (08:35)
[2024-11-11] MEDS: EMPAGLIFLOZIN 10 MG TABLET PO (08:35)
[2024-11-11] MEDS: ATORVASTATIN 40 MG TABLET PO (08:35)
[2024-11-11] MEDS: ASPIRIN 81 MG CHEWABLE TABLET PO (08:35)
[2024-11-11] MEDS: METOPROLOL SUCCINATE EXT REL 25 MG TABCR PO (08:35)
[2024-11-11] MEDS: SPIRONOLACTONE 25 MG TABLET PO (08:35)
[2024-11-11] MEDS: ENOXAPARIN 40 MG/0.4 ML SYRINGE SUB-Q (08:37)
--- NOTE | 2024-11-11 08:42 | ECG_ITS ---
Test Date: 2024-11-11 09:26:22 Measurements Intervals [place] Rate: 64 P: -1 AR: 157 QRS: -16 QRSD: 101 T: 149 QT: 458 QTc: 474 Interpretive Statements SINUS RHYTHM WITH FREQUENT VENTRICULAR PREMATURE COMPLEXES IN A BIGEMINAL PATTERN ST DEVIATION AND MODERATE T-WAVE ABNORMALITY, CONSIDER ANTEROLATERAL ISCHEMIA [-0.1+ mV T-WAVE IN V3-V6] Compared to ECG 11/05/2024 12:39:41 Ventricular premature complex(es) now present Electronically Signed On 11-11-2024 11:00:28 CDT by Jose Luis Yeager M.D.
--- NOTE | 2024-11-11 08:49 | PCPTNOTE ---
Attempted to see patient for PT, per RN advised to wait on patient due to patient having chest pain.
--- NOTE | 2024-11-11 09:18 | PCOTNOTE ---
Attempted to see patient for OT, per RN advised to wait on patient due to patient having chest pain.
[2024-11-11 09:35] LABS: Troponin I 0.024 ng/mL (0.000-0.034)
--- NOTE | 2024-11-11 12:13 | PM.IMPN ---
Progress Note: A&P Assessment and Plan (1) Acute respiratory failure with hypoxia: Code(s): J96.01 - Acute respiratory failure with hypoxia Status: Acute Assessment and Plan: Patient with acute respiratory failure status post fall/syncope, agonal breathing, initially i-Gel (supraglottic airway) was inserted. Appears to be multifactorial secondary to pneumonia (?aspiration), CHF and/or COVID-19. He has been vaccinated in the past 11/05:Patient was intubated in the ER 11/08 extubated after a successful weaning trial Weaned off of oxygen. Continue Incentive spirometry. 11/05: CT chest abdomen and pelvis 1. Extensive patchy airspace consolidation, consistent with pneumonia. 2: Sclerotic lesion left femoral head, most likely benign bone island, although in the presence of enlarged prostate gland, metastatic disease secondary to prostate cancer should be considered. -continue bronchodilators but changed to p.r.n. -patient received Lasix IV earlier. Hold further dosing today -He completed Rocephin and azithromycin course. Off vancomycin -He completed remdesivir course; stop dexamethasone since on room air. -isolation (2) COVID-19: Code(s): U07.1 - COVID-19 Status: Acute Assessment and Plan: Patient tested positive for SARS-CoV-2 PCR PCR -pneumonia could be related to that or bacterial pneumonia -patient received a dose of tocilizumab in the ER. He completed remdesivir. -will stop dexamethasone (3) Pneumonia: Code(s): J18.9 - Pneumonia, unspecified organism Status: Acute Assessment and Plan: Extensive pneumonia seen on CT chest as above -treated with azithromycin, ceftriaxone (11/05) and Vanco. -MRSA screen is negative so Vanco discontinued -11/05: blood cultures negative -11/05: Sputum culture negative WBC higher but felt related to steroids. Completed Azithro and Rocephin. (4) Elevated troponin: Code(s): R79.89 - Other specified abnormal findings of blood chemistry Status: Acute Assessment and Plan: Elevated troponins, initial EKG showed possible atrial flutter, LBBB Echo 11/05 showing 1. Left ventricular chamber dimension is normal. 2. There is mildly increased left ventricular wall thickness. 3. Left ventricular systolic function is moderately reduced, estimated at 30-35%. 4. Global hypokinesis with more pronounced hypokinesis of the anteroseptum, mid inferoseptum, apex. 5. The left ventricular diastolic function is grade I diastolic dysfunction. 6. Right ventricular systolic function is normal. 7. Left atrial chamber dimension is moderately enlarged. 8. No significant valvular disease. Cardiology consulted and appreciate their evaluation and recommendations, -elevated troponin could be related to type 2 infarct secondary to resp failure, pneumonia, CAD, arrhythmias which could be related to syncopal episode Now having CP. Repeat Echo showing EF 60-65% -ischemic evaluation per cardiology -Lasix IV as needed. Medications adjusted due to low BP. Continue tele Appreciate cardiology input (5) Syncope: Code(s): R55 - Syncope and collapse Status: Acute Assessment and Plan: Patient presented with fall could be related to syncope secondary to hypoxia, a cardiac arrhythmias as when patient arrived he was possible in atrial flutter, tachycardic 11/05:CT head on admission: No acute intracranial abnormality. 11/05: CT cervical spine/facial bones on admission: 1. No acute abnormality of the facial bones or cervical spine.2: Severe cervical spondylosis.3: Patchy upper lobe infiltrates, consistent with pneumonia. -elevated troponins, could be related to coronary artery disease/type 2 infarct -echocardiogram as above -less than 50% stenosis bilaterally on carotid Doppler Monitor (6) LV dysfunction: Code(s): I51.9 - Heart disease, unspecified Status: Acute Assessment and Plan: As above. Entresto, Toprol XL and Aldactone started. Empagliflozin was added. Will need ischemic evaluation per cardiology recommendations. Medications adjusted given the low BP. (7) Essential hypertension: Code(s): I10 - Essential (primary) hypertension Status: Acute Assessment and Plan: BP soft now As above. P.r.n. labetalol and hydralazine (8) Hyperlipidemia: Code(s): E78.5 - Hyperlipidemia, unspecified Status: Acute Assessment and Plan: LFTs normal. Continue atorvastatin (9) Nausea: Code(s): R11.0 - Nausea Status: Acute Assessment and Plan: Patient with nausea on 11/09. Had normal bowel sounds and abdomen was not tender. KUB negative. Eating okay now. Continue Zofran and Compazine prn Plan DVT prophylaxis: Enoxaparin Code Status: Full code Consult PT OT Subjective Date/time seen: 11/11/24 12:13 Interval history: 74yo male with HLD and GERD here after being found unresponsive after a fall. SOB better. Had chest pain overnight left upper chest as achy pain. Pain was positional and palpable but lasted hours. Recurrent pain this morning. Exam Narrative: AF 97.9 93/55 68 16 94% ra Gen - NARD Chest - CTA bilaterally, nml RR CV - RRR S1/S2 Abd - Soft, NT/ND, Positive BS Ext - No pedal edema Psych - Nml mood and affect Skin - Warm and dry Objective Data Vital Signs Vital Signs: Vital Signs - 24 hr 11/10/24 14:00 11/10/24 14:23 11/10/24 16:00 Temperature 99.1 F Pulse Rate 60 70 Respiratory Rate 16 Blood Pressure 114/69 Pulse Oximetry 96 Oxygen Delivery Room Air 11/10/24 19:46 11/10/24 20:00 11/11/24 00:00 Temperature 98.3 F Pulse Rate 59 L 61 61 Respiratory Rate 18 Blood Pressure 115/63 Pulse Oximetry 97 Oxygen Delivery 11/11/24 04:00 11/11/24 04:32 11/11/24 08:35 Temperature 98.3 F Pulse Rate 61 66 70 Respiratory Rate 18 Blood Pressure 108/56 L Pulse Oximetry 98 Oxygen Delivery 11/11/24 08:35 11/11/24 08:42 11/11/24 11:49 Temperature 97.9 F Pulse Rate 68 Respiratory Rate 16 Blood Pressure 133/71 77/49 L Pulse Oximetry 94 Oxygen Delivery Room Air 11/11/24 11:49 Temperature Pulse Rate Respiratory Rate Blood Pressure 93/55 L Pulse Oximetry Oxygen Delivery Intake/Output Intake/Output: Intake & Output 11/08/24 11/09/24 11/10/24 11/11/24 23:59 23:59 23:59 23:59 Intake Total 278 836 1783 350 Output Total 3225 600 1300 900 Balance -2625 200 -100 -550 Meds/Results Medications: Active Medications Generic Name Dose Route Start Last Admin Trade Name Freq PRN Reason Stop Dose Admin Acetaminophen 650 mg 11/11/24 08:45 Acetaminophen 325 Mg Tablet PO Q6H PRN Mild Pain (1-3) or Fever Albuterol/Ipratropium 3 ml 11/07/24 08:06 11/07/24 08:43 Ipratropium 0.5 Mg/Albuterol Sulfate 2.5 Mg Ampul.Neb 3 Ml INHALATION 3 ml Q6HRT PRN Administration Wheezing Aspirin 81 mg 11/06/24 08:00 11/11/24 08:35 Aspirin 81 Mg Chewable Tablet PO 81 mg DAILY@0800 MILLA Administration Atorvastatin Calcium 40 mg 11/06/24 09:00 11/11/24 08:35 Atorvastatin 40 Mg Tablet PO 40 mg DAILY MILLA Administration Dextrose 12.5 gm 11/07/24 08:06 Dextrose 50% 25 Gm/50 Ml Syringe IV PUSH PRN PRN Hypoglycemia Protocol Empagliflozin 10 mg 11/11/24 09:00 11/11/24 08:35 Empagliflozin 10 Mg Tablet PO 10 mg DAILY MILLA Administration Enoxaparin Sodium 40 mg 11/05/24 09:00 11/11/24 08:37 Enoxaparin 40 Mg/0.4 Ml Syringe SUB-Q 40 mg DAILY MILLA Administration Glucagon 1 mg 11/07/24 08:06 Glucagon For Inj 1 Mg Vial IM PRN PRN Hypoglycemia Protocol Glucose 15 gm 11/07/24 08:06 Glucose Oral Gel 15 Gm Of Glucse In 37.5 Gm Tube PO PRN PRN Hypoglycemia Protocol Dextrose 1,000 mls @ 100 mls/hr 11/07/24 08:06 Dextrose 5% 1,000 Ml IVPB PRN PRN Hypoglycemia Protocol Labetalol HCl 20 mg 11/08/24 07:37 11/08/24 20:10 Labetalol Hcl Inj 100 Mg/20 Ml Vial IV PUSH 20 mg Q4H PRN Administration SBP > 160 and HR> 60 -1st choice Metoprolol Succinate 50 mg 11/12/24 09:00 Metoprolol Succinate Ext Rel 50 Mg Tabcr PO QAM MILLA Ondansetron HCl 4 mg 11/05/24 01:33 11/10/24 08:25 Ondansetron Inj 4 Mg/2 Ml Vial IV PUSH 4 mg Q4H PRN Administration Nausea Pantoprazole Sodium 40 mg 11/10/24 09:00 11/11/24 08:35 Pantoprazole 40 Mg Tablet PO 40 mg Q12HR MILLA Administration Perflutren Lipid Microsphere 0 ml 11/10/24 08:18 Perflutren Lipid Microspheres 1.5 Ml Vial Diluted To 10 Ml Total Volume IV PUSH 11/13/24 08:18 ONCE PRN adequate visualization Protocol Prochlorperazine Maleate 10 mg 11/09/24 09:30 11/09/24 10:28 Prochlorperazine Maleate 5 Mg Tablet PO 10 mg Q6H PRN Administration Nausea And Vomiting Sacubitril/Valsartan 1 tab 11/07/24 21:00 11/11/24 08:35 Sacubitril/Valsartan 24-26 Mg Tablet PO 1 tab Q12HR MILLA Administration Spironolactone 25 mg 11/08/24 09:00 11/11/24 08:35 Spironolactone 25 Mg Tablet PO 25 mg QAM MILLA Administration Radiology Results: ITS Impressions Chest/Abdomen/Pelvis CT 11/05/24 07:01 IMPRESSION: 1. Extensive patchy airspace consolidation, consistent with pneumonia. 2: Sclerotic lesion left femoral head, most likely benign bone island, although in the presence of enlarged prostate gland, metastatic disease secondary to prostate cancer should be considered. Head/Cervical Spine/Facial Bones CT 11/05/24 07:07 IMPRESSION: 1. No acute abnormality of the facial bones or cervical spine. 2: Severe cervical spondylosis. 3: Patchy upper lobe infiltrates, consistent with pneumonia. Head CT 11/05/24 07:11 IMPRESSION: 1. No acute intracranial abnormality. Carotid Doppler Study 11/06/24 15:13 IMPRESSION: 1. Less than 50% stenosis in the right internal carotid artery. 2. Less than 50% stenosis in the left internal carotid artery. Modified Barium Swallow 11/08/24 14:42 IMPRESSION: 1. Normal modified barium swallow. 2. Please refer to the speech therapy report for recommendations. Abdomen X-Ray 11/09/24 09:59 IMPRESSION: 1. Normal bowel gas pattern. Chest X-Ray 11/10/24 06:00 IMPRESSION: 1. No acute cardiopulmonary disease. Labs Labs: Laboratory Results - last 24 hr 11/10/24 11/11/24 11/11/24 04:18 03:52 09:07 WBC 18.6 H RBC 5.18 Hgb 17.1 Hct 48.4 MCV 93.4 MCH 33.0 MCHC 35.3 RDW 11.6 Plt Count 286 MPV 10.6 H Immature Gran % (Auto) 2.8 H Neut % (Auto) 74.6 H Lymph % (Auto) 13.6 L [place] % (Auto) 8.5 Eos % (Auto) 0.2 Baso % (Auto) 0.3 Lymph # (Auto) 2.52 [place] # (Auto) 1.6 H Eos # (Auto) 0.0 Baso # (Auto) 0.1 Abs Immat Gran (auto) 0.52 H Absolute Neuts (auto) 13.9 H Absolute Nucleated RBC 0.000 Nucleated RBC % 0.0 Sodium 133 L Potassium 4.8 Chloride 103 Carbon Dioxide 17 L Anion Gap 13 H BUN 59 H D Creatinine 1.27 Estim Creat Clear Calc 50 Estimated GFR 55 L Glucose 112 H Calcium 8.6 Phosphorus 4.8 H Magnesium 3.0 H Troponin I 0.024 Albumin 4.0 Triglycerides 172 H
[2024-11-11 12:33] LABS: Troponin I 0.028 ng/mL (0.000-0.034)
[2024-11-11 15:46] LABS: Troponin I 0.026 ng/mL (0.000-0.034)
[2024-11-11 17:53] LABS: Mycoplasma IgM Antibody Titer 44 U/mL
[2024-11-12] VITALS (10 sets, daily range): BP systolic 112–139; BP diastolic 58–94; PULSE 54–66; RESP 16–20; TEMP 36.2–36.8; O2SAT 95–99
[2024-11-12 05:30] LABS: Basophils Percent Auto 0.2 % (0.2-1.2); Eosinophils Absolute Auto 0.2 K/mm3 (0-0.3); Eosinophils Percent Auto 1.5 % (0-4.4); Hematocrit 48.6 % (42.0-52.0); Hemoglobin 17.2 g/dL (14.0-18.0); Immature Granulocyte Absolute 0.25 K/mm3 (0.00-0.031); Immature Granulocyte Percent A 1.9 % (0-0.5); Mean Corpuscular HGB Conc 35.4 g/dl (32-36); Mean Corpuscular Hemoglobin 33.4 pg (26-34); Mean Corpuscular Volume 94.4 fl (80-100); Mean Platelet Volume 10.4 fl (7.4-10.4); Monocytes Absolute Auto 1.2 K/mm3 (0.1-0.6); Monocytes Percent Auto 9.4 % (2.6-8.5); Neutrophils Absolute Auto 8.1 K/mm3 (1.3-6.7); Platelet Count Result 279 k/mm3 (150-375); Red Blood Count 5.15 M/mm3 (4.6-6.20); Red Cell Distribution Width 11.8 % (11.5-14.5); White Blood Count 12.9 K/mm3 (4.5-10.0)
[2024-11-12 05:40] LABS: Albumin Level 3.9 g/dL (3.5-5.1); Anion Gap 13 mmol/L (4-12); Blood Urea Nitrogen 54 mg/dL (9-20); Calcium 8.5 mg/dL (8.4-10.2); Carbon Dioxide 19 mmol/L (22-30); Chloride 104 mmol/L (98-107); Estimated CRCL calculation 47 ml/min; Estimated Glomerular Filt Rate 51; Glucose 105 mg/dL (65-110); Magnesium 2.9 mg/dL (1.6-2.3); Phosphorus 4.2 mg/dL (2.5-4.5); Potassium 4.1 mmol/L (3.4-5.0); Sodium 136 mmol/L (137-145)
[2024-11-12] MEDS: ENOXAPARIN 40 MG/0.4 ML SYRINGE SUB-Q (10:04)
[2024-11-12] MEDS: ASPIRIN 81 MG CHEWABLE TABLET PO (10:05)
[2024-11-12] MEDS: EMPAGLIFLOZIN 10 MG TABLET PO (10:05)
[2024-11-12] MEDS: ATORVASTATIN 40 MG TABLET PO (10:05)
[2024-11-12] MEDS: METOPROLOL SUCCINATE EXT REL 50 MG TABCR PO (10:05)
[2024-11-12] MEDS: PANTOPRAZOLE 40 MG TABLET PO ×2 (10:05→20:49)
--- NOTE | 2024-11-12 14:48 | PM.IMPN ---
Progress Note: A&P Assessment and Plan (1) Acute respiratory failure with hypoxia: Code(s): J96.01 - Acute respiratory failure with hypoxia Status: Acute Assessment and Plan: Patient with fall/syncope and found to have acute respiratory failure with agonal breathing. [place] to be multifactorial secondary to pneumonia (?aspiration), CHF and/or COVID-19. He has been vaccinated in the past. Patient was intubated in ED (11/05). CT chest abdomen and pelvis showed extensive patchy airspace consolidation, consistent with pneumonia and sclerotic lesion left femoral head, most likely benign bone island, although in the presence of enlarged prostate gland, metastatic disease secondary to prostate cancer should be considered. 11/08 extubated after a successful weaning trial. Weaned off of oxygen. -continue bronchodilators but changed to p.r.n. -patient received Lasix IV earlier. Hold further dosing today -He completed Rocephin and azithromycin course. Off vancomycin -He completed remdesivir course; stop dexamethasone since on room air. -isolation. Check bone scan to assess for other bony lesions. (2) COVID-19: Code(s): U07.1 - COVID-19 Status: Acute Assessment and Plan: Patient tested positive for SARS-CoV-2 PCR PCR -pneumonia could be related to that or bacterial pneumonia -patient received a dose of tocilizumab in the ER. He completed remdesivir. - dexamethasone stopped (3) Pneumonia: Code(s): J18.9 - Pneumonia, unspecified organism Status: Acute Assessment and Plan: Extensive pneumonia seen on CT chest as above -treated with azithromycin, ceftriaxone (11/05) and Vanco. -MRSA screen is negative so Vanco discontinued -11/05: blood cultures negative -11/05: Sputum culture negative WBC was higher but felt related to steroids. WBC better. Completed Azithro and Rocephin. (4) Elevated troponin: Code(s): R79.89 - Other specified abnormal findings of blood chemistry Status: Acute Assessment and Plan: Elevated troponins, initial EKG showed possible atrial flutter, LBBB Echo 11/05 showing 1. Left ventricular chamber dimension is normal. 2. There is mildly increased left ventricular wall thickness. 3. Left ventricular systolic function is moderately reduced, estimated at 30-35%. 4. Global hypokinesis with more pronounced hypokinesis of the anteroseptum, mid inferoseptum, apex. 5. The left ventricular diastolic function is grade I diastolic dysfunction. 6. Right ventricular systolic function is normal. 7. Left atrial chamber dimension is moderately enlarged. 8. No significant valvular disease. Cardiology consulted and appreciate their evaluation and recommendations, -elevated troponin could be related to type 2 infarct secondary to resp failure, pneumonia, CAD, arrhythmias which could be related to syncopal episode Repeat Echo showing EF 60-65% -ischemic evaluation per cardiology -Lasix IV as needed. Medications adjusted due to low BP. Continue tele Appreciate cardiology input (5) Syncope: Code(s): R55 - Syncope and collapse Status: Acute Assessment and Plan: Patient presented with fall could be related to syncope secondary to hypoxia, a cardiac arrhythmias as when patient arrived he was possible in atrial flutter, tachycardic 11/05:CT head on admission: No acute intracranial abnormality. 11/05: CT cervical spine/facial bones on admission: 1. No acute abnormality of the facial bones or cervical spine.2: Severe cervical spondylosis.3: Patchy upper lobe infiltrates, consistent with pneumonia. -elevated troponins, could be related to coronary artery disease/type 2 infarct -echocardiogram as above -less than 50% stenosis bilaterally on carotid Doppler Monitor (6) LV dysfunction: Code(s): I51.9 - Heart disease, unspecified Status: Acute Assessment and Plan: As above. Entresto, Toprol XL and Aldactone started. Empagliflozin was added. Will need ischemic evaluation per cardiology recommendations. Repeat Echo showing improved EF. Continue current meds (7) Essential hypertension: Code(s): I10 - Essential (primary) hypertension Status: Acute Assessment and Plan: BP stable As above. P.r.n. labetalol and hydralazine (8) Hyperlipidemia: Code(s): E78.5 - Hyperlipidemia, unspecified Status: Acute Assessment and Plan: LFTs normal. Continue atorvastatin (9) Nausea: Code(s): R11.0 - Nausea Status: Acute Assessment and Plan: Patient with nausea on 11/09. KUB negative. Eating okay now. Continue Zofran and Compazine prn Plan DVT prophylaxis: Enoxaparin Code Status: Full code Consult PT OT Subjective Date/time seen: 11/12/24 14:48 Interval history: 74yo male with HLD and GERD here after being found unresponsive after a fall. No chest pain shortness of breath. Walking well with therapy. No nausea or vomiting. Exam Narrative: AF 97.4 124/58 60 18 99% ra Gen - NARD Chest - CTA bilaterally, nml RR CV - RRR S1/S2. Telemetry showing PVCs and bigeminy. Abd - Soft, NT/ND, Positive BS Ext - No pedal edema Psych - Nml mood and affect Skin - Warm and dry Objective Data Vital Signs Vital Signs: Vital Signs - 24 hr 11/11/24 16:00 11/11/24 19:36 11/11/24 20:00 Temperature 97.6 F Pulse Rate 64 66 66 Respiratory Rate 12 12 Blood Pressure 102/57 L Pulse Oximetry 96 96 Oxygen Delivery Room Air Fraction of Inspired Oxygen 28 11/11/24 20:00 11/11/24 23:36 11/12/24 00:00 Temperature 98.1 F Pulse Rate 61 60 56 L Respiratory Rate 16 Blood Pressure 108/61 Pulse Oximetry 99 Oxygen Delivery Fraction of Inspired Oxygen 11/12/24 04:00 11/12/24 04:52 11/12/24 08:00 Temperature 98.3 F 97.4 F L Pulse Rate 54 L 60 60 Respiratory Rate 16 18 Blood Pressure 114/61 124/58 L Pulse Oximetry 95 99 Oxygen Delivery Fraction of Inspired Oxygen 11/12/24 08:00 11/12/24 08:00 11/12/24 10:05 Temperature Pulse Rate 62 60 Respiratory Rate Blood Pressure Pulse Oximetry Oxygen Delivery Room Air Fraction of Inspired Oxygen Intake/Output Intake/Output: Intake & Output 11/09/24 11/10/24 11/11/24 11/12/24 23:59 23:59 23:59 23:59 Intake Total 800 1200 1200 490 Output Total 600 1300 1250 525 Balance 200 -100 -50 -35 Meds/Results Medications: Active Medications Generic Name Dose Route Start Last Admin Trade Name Freq PRN Reason Stop Dose Admin Acetaminophen 650 mg 11/11/24 08:45 Acetaminophen 325 Mg Tablet PO Q6H PRN Mild Pain (1-3) or Fever Albuterol/Ipratropium 3 ml 11/07/24 08:06 11/07/24 08:43 Ipratropium 0.5 Mg/Albuterol Sulfate 2.5 Mg Ampul.Neb 3 Ml INHALATION 3 ml Q6HRT PRN Administration Wheezing Aspirin 81 mg 11/06/24 08:00 11/12/24 10:05 Aspirin 81 Mg Chewable Tablet PO 81 mg DAILY@0800 MILLA Administration Atorvastatin Calcium 40 mg 11/06/24 09:00 11/12/24 10:05 Atorvastatin 40 Mg Tablet PO 40 mg DAILY MILLA Administration Dextrose 12.5 gm 11/07/24 08:06 Dextrose 50% 25 Gm/50 Ml Syringe IV PUSH PRN PRN Hypoglycemia Protocol Empagliflozin 10 mg 11/11/24 09:00 11/12/24 10:05 Empagliflozin 10 Mg Tablet PO 10 mg DAILY MILLA Administration Enoxaparin Sodium 40 mg 11/05/24 09:00 11/12/24 10:04 Enoxaparin 40 Mg/0.4 Ml Syringe SUB-Q 40 mg DAILY MILLA Administration Glucagon 1 mg 11/07/24 08:06 Glucagon For Inj 1 Mg Vial IM PRN PRN Hypoglycemia Protocol Glucose 15 gm 11/07/24 08:06 Glucose Oral Gel 15 Gm Of Glucse In 37.5 Gm Tube PO PRN PRN Hypoglycemia Protocol Dextrose 1,000 mls @ 100 mls/hr 11/07/24 08:06 Dextrose 5% 1,000 Ml IVPB PRN PRN Hypoglycemia Protocol Labetalol HCl 20 mg 11/08/24 07:37 11/08/24 20:10 Labetalol Hcl Inj 100 Mg/20 Ml Vial IV PUSH 20 mg Q4H PRN Administration SBP > 160 and HR> 60 -1st choice Metoprolol Succinate 50 mg 11/12/24 09:00 11/12/24 10:05 Metoprolol Succinate Ext Rel 50 Mg Tabcr PO 50 mg QAM MILLA Administration Ondansetron HCl 4 mg 11/05/24 01:33 11/10/24 08:25 Ondansetron Inj 4 Mg/2 Ml Vial IV PUSH 4 mg Q4H PRN Administration Nausea Pantoprazole Sodium 40 mg 11/10/24 09:00 11/12/24 10:05 Pantoprazole 40 Mg Tablet PO 40 mg Q12HR MILLA Administration Perflutren Lipid Microsphere 0 ml 11/10/24 08:18 Perflutren Lipid Microspheres 1.5 Ml Vial Diluted To 10 Ml Total Volume IV PUSH 11/13/24 08:18 ONCE PRN adequate visualization Protocol Prochlorperazine Maleate 10 mg 11/09/24 09:30 11/09/24 10:28 Prochlorperazine Maleate 5 Mg Tablet PO 10 mg Q6H PRN Administration Nausea And Vomiting Sacubitril/Valsartan 1 tab 11/07/24 21:00 11/11/24 08:35 Sacubitril/Valsartan 24-26 Mg Tablet PO 1 tab Q12HR MILLA Administration Spironolactone 25 mg 11/08/24 09:00 11/11/24 08:35 Spironolactone 25 Mg Tablet PO 25 mg QAM MILLA Administration Radiology Results: ITS Impressions Chest/Abdomen/Pelvis CT 11/05/24 07:01 IMPRESSION: 1. Extensive patchy airspace consolidation, consistent with pneumonia. 2: Sclerotic lesion left femoral head, most likely benign bone island, although in the presence of enlarged prostate gland, metastatic disease secondary to prostate cancer should be considered. Head/Cervical Spine/Facial Bones CT 11/05/24 07:07 IMPRESSION: 1. No acute abnormality of the facial bones or cervical spine. 2: Severe cervical spondylosis. 3: Patchy upper lobe infiltrates, consistent with pneumonia. Head CT 11/05/24 07:11 IMPRESSION: 1. No acute intracranial abnormality. Carotid Doppler Study 11/06/24 15:13 IMPRESSION: 1. Less than 50% stenosis in the right internal carotid artery. 2. Less than 50% stenosis in the left internal carotid artery. Modified Barium Swallow 11/08/24 14:42 IMPRESSION: 1. Normal modified barium swallow. 2. Please refer to the speech therapy report for recommendations. Abdomen X-Ray 11/09/24 09:59 IMPRESSION: 1. Normal bowel gas pattern. Chest X-Ray 11/10/24 06:00 IMPRESSION: 1. No acute cardiopulmonary disease. Labs Labs: Laboratory Results - last 24 hr 11/05/24 11/11/24 11/12/24 04:09 15:08 04:55 WBC 12.9 H RBC 5.15 Hgb 17.2 Hct 48.6 MCV 94.4 MCH 33.4 MCHC 35.4 RDW 11.8 Plt Count 279 MPV 10.4 Immature Gran % (Auto) 1.9 H Neut % (Auto) 63.0 Lymph % (Auto) 24.0 [place] % (Auto) 9.4 H Eos % (Auto) 1.5 Baso % (Auto) 0.2 Lymph # (Auto) 3.10 [place] # (Auto) 1.2 H Eos # (Auto) 0.2 Baso # (Auto) 0.0 Abs Immat Gran (auto) 0.25 H Absolute Neuts (auto) 8.1 H Absolute Nucleated RBC 0.000 Nucleated RBC % 0.0 Sodium 136 L Potassium 4.1 Chloride 104 Carbon Dioxide 19 L Anion Gap 13 H BUN 54 H Creatinine 1.36 H Estim Creat Clear Calc 47 Estimated GFR 51 L Glucose 105 Calcium 8.5 Phosphorus 4.2 Magnesium 2.9 H Troponin I 0.026 Albumin 3.9 Mycoplasma pneumon IgM 44
[2024-11-12 23:52] LABS: Triglycerides 134 mg/dL (<150)
[2024-11-13] VITALS (10 sets, daily range): BP systolic 119–151; BP diastolic 65–79; PULSE 56–76; RESP 18–20; TEMP 36.6–37.3; O2SAT 98–99
[2024-11-13] MEDS: ASPIRIN 81 MG CHEWABLE TABLET PO (08:51)
[2024-11-13] MEDS: EMPAGLIFLOZIN 10 MG TABLET PO (08:51)
[2024-11-13] MEDS: ATORVASTATIN 40 MG TABLET PO (08:51)
[2024-11-13] MEDS: ENOXAPARIN 40 MG/0.4 ML SYRINGE SUB-Q (08:51)
[2024-11-13] MEDS: PANTOPRAZOLE 40 MG TABLET PO ×2 (08:51→20:46)
[2024-11-13] MEDS: METOPROLOL SUCCINATE EXT REL 50 MG TABCR PO (08:51)
--- NOTE | 2024-11-13 19:57 | P.PNIM_ITS ---
Progress Note: A&P Assessment and Plan (1) Acute respiratory failure with hypoxia: Code(s): J96.01 - Acute respiratory failure with hypoxia Status: Acute Assessment and Plan: Patient with fall/syncope and found to have acute respiratory failure with agonal breathing. [place] to be multifactorial secondary to pneumonia (?aspiration), CHF and/or COVID-19. Patient was intubated in ED. CT ch/abd/pelvis showed extensive patchy airspace consolidation, consistent with pneumonia and sclerotic lesion left femoral head, most likely benign bone island, although in the presence of enlarged prostate gland, metastatic disease secondary to prostate cancer should be considered. PSA was 5.5. Patient was able to be extubated after a successful weaning trial. Weaned off of oxygen. Bronchodilators changed to p.r.n. Patient received Lasix IV but off now. -He completed Rocephin and azithromycin course. Off vancomycin -He completed remdesivir course; stop dexamethasone since on room air. -isolation. Bone scan ordered to assess for other bony lesions. (2) COVID-19: Code(s): U07.1 - COVID-19 Status: Acute Assessment and Plan: Patient tested positive for SARS-CoV-2 PCR -pneumonia could be related to COVID or bacterial pneumonia -patient received a dose of tocilizumab in the ER. He completed remdesivir. - dexamethasone stopped (3) Pneumonia: Code(s): J18.9 - Pneumonia, unspecified organism Status: Acute Assessment and Plan: Extensive pneumonia seen on CT chest as above -treated with azithromycin, ceftriaxone (11/05) and Vanco. -MRSA screen is negative so Vanco discontinued -11/05: blood cultures negative -11/05: Sputum culture negative WBC was higher but felt related to steroids. WBC better. Completed Azithro and Rocephin. (4) Elevated troponin: Code(s): R79.89 - Other specified abnormal findings of blood chemistry Status: Acute Assessment and Plan: Elevated troponins, initial EKG showed possible atrial flutter, LBBB Echo 11/05 showing 1. Left ventricular chamber dimension is normal. 2. There is mildly increased left ventricular wall thickness. 3. Left ventricular systolic function is moderately reduced, estimated at 30-35%. 4. Global hypokinesis with more pronounced hypokinesis of the anteroseptum, mid inferoseptum, apex. 5. The left ventricular diastolic function is grade I diastolic dysfunction. 6. Right ventricular systolic function is normal. 7. Left atrial chamber dimension is moderately enlarged. 8. No significant valvular disease. Cardiology consulted and appreciate their evaluation and recommendations, -elevated troponin could be related to type 2 infarct secondary to resp failure, pneumonia, CAD, arrhythmias which could be related to syncopal episode Repeat Echo showing EF 60-65% -ischemic evaluation per cardiology -Lasix IV as needed. Medications adjusted due to low BP. Continue tele Appreciate cardiology input (5) Syncope: Code(s): R55 - Syncope and collapse Status: Acute Assessment and Plan: Patient presented with fall could be related to syncope secondary to hypoxia, a cardiac arrhythmias as when patient arrived he was possible in atrial flutter, tachycardic 11/05:CT head on admission: No acute intracranial abnormality. 11/05: CT cervical spine/facial bones on admission: 1. No acute abnormality of the facial bones or cervical spine.2: Severe cervical spondylosis.3: Patchy upper lobe infiltrates, consistent with pneumonia. -elevated troponins, could be related to coronary artery disease/type 2 infarct -echocardiogram as above -less than 50% stenosis bilaterally on carotid Doppler Monitor (6) LV dysfunction: Code(s): I51.9 - Heart disease, unspecified Status: Acute Assessment and Plan: As above. Entresto, Toprol XL and Aldactone started. Empagliflozin was added. Will need ischemic evaluation per cardiology recommendations. Repeat Echo showing improved EF. Entresto and Aldactone held due to soft BP. Continue current meds (7) Essential hypertension: Code(s): I10 - Essential (primary) hypertension Status: Acute Assessment and Plan: BP stable As above. (8) Hyperlipidemia: Code(s): E78.5 - Hyperlipidemia, unspecified Status: Acute Assessment and Plan: LFTs normal. Continue atorvastatin (9) Nausea: Code(s): R11.0 - Nausea Status: Acute Assessment and Plan: Patient with nausea on 11/09. KUB negative. Eating okay now. Zofran and Compazine available prn Plan DVT prophylaxis: Enoxaparin Code Status: Full code Consult PT OT. Waiting on placement. Subjective Date/time seen: 11/13/24 19:57 Interval history: 74yo male with HLD and GERD here after being found unresponsive after a fall. No chest pain, SOB, cough, n/v. Exam Narrative: AF 97.8 120/79 66 18 98% ra Gen - NARD Chest - CTA bilaterally, nml RR CV - RRR S1/S2. Telemetry showing PVCs Abd - Soft, NT/ND, Positive BS Ext - No pedal edema Psych - Nml mood and affect Skin - Warm and dry Objective Data Vital Signs Vital Signs: Vital Signs - 24 hr 11/12/24 20:00 11/12/24 20:00 11/12/24 23:44 Temperature 97.3 F L Pulse Rate 66 60 55 L Respiratory Rate 20 16 Blood Pressure 112/61 Pulse Oximetry 99 96 Oxygen Delivery Room Air Fraction of Inspired Oxygen 28 11/13/24 00:00 11/13/24 04:00 11/13/24 04:46 Temperature 99.1 F Pulse Rate 56 L 59 L 61 Respiratory Rate 20 Blood Pressure 119/65 Pulse Oximetry 98 Oxygen Delivery Fraction of Inspired Oxygen 11/13/24 08:00 11/13/24 08:00 11/13/24 08:51 Temperature Pulse Rate 68 61 Respiratory Rate Blood Pressure Pulse Oximetry Oxygen Delivery Room Air Fraction of Inspired Oxygen 11/13/24 09:00 11/13/24 12:00 11/13/24 16:00 Temperature 97.8 F Pulse Rate 68 60 66 Respiratory Rate 18 Blood Pressure 120/79 Pulse Oximetry 98 Oxygen Delivery Fraction of Inspired Oxygen Intake/Output Intake/Output: Intake & Output 11/10/24 11/11/24 11/12/24 11/13/24 23:59 23:59 23:59 23:59 Intake Total 1200 9435 617 1902 Output Total 1300 1250 1275 Balance -100 -50 -295 1770 Meds/Results Medications: Active Medications Generic Name Dose Route Start Last Admin Trade Name Freq PRN Reason Stop Dose Admin Acetaminophen 650 mg 11/11/24 08:45 Acetaminophen 325 Mg Tablet PO Q6H PRN Mild Pain (1-3) or Fever Albuterol/Ipratropium 3 ml 11/07/24 08:06 11/07/24 08:43 Ipratropium 0.5 Mg/Albuterol Sulfate 2.5 Mg Ampul.Neb 3 Ml INHALATION 3 ml Q6HRT PRN Administration Wheezing Aspirin 81 mg 11/06/24 08:00 03/30/25 08:51 Aspirin 81 Mg Chewable Tablet PO 81 mg DAILY@0800 MILLA Administration Atorvastatin Calcium 40 mg 11/06/24 09:00 11/13/24 08:51 Atorvastatin 40 Mg Tablet PO 40 mg DAILY MILLA Administration Dextrose 12.5 gm 11/07/24 08:06 Dextrose 50% 25 Gm/50 Ml Syringe IV PUSH PRN PRN Hypoglycemia Protocol Empagliflozin 10 mg 11/11/24 09:00 11/13/24 08:51 Empagliflozin 10 Mg Tablet PO 10 mg DAILY MILLA Administration Enoxaparin Sodium 40 mg 11/05/24 09:00 11/13/24 08:51 Enoxaparin 40 Mg/0.4 Ml Syringe SUB-Q 40 mg DAILY MILLA Administration Glucagon 1 mg 11/07/24 08:06 Glucagon For Inj 1 Mg Vial IM PRN PRN Hypoglycemia Protocol Glucose 15 gm 11/07/24 08:06 Glucose Oral Gel 15 Gm Of Glucse In 37.5 Gm Tube PO PRN PRN Hypoglycemia Protocol Dextrose 1,000 mls @ 100 mls/hr 11/07/24 08:06 Dextrose 5% 1,000 Ml IVPB PRN PRN Hypoglycemia Protocol Labetalol HCl 20 mg 11/08/24 07:37 11/08/24 20:10 Labetalol Hcl Inj 100 Mg/20 Ml Vial IV PUSH 20 mg Q4H PRN Administration SBP > 160 and HR> 60 -1st choice Metoprolol Succinate 50 mg 11/12/24 09:00 11/13/24 08:51 Metoprolol Succinate Ext Rel 50 Mg Tabcr PO 50 mg QAM MILLA Administration Ondansetron HCl 4 mg 11/05/24 01:33 11/10/24 08:25 Ondansetron Inj 4 Mg/2 Ml Vial IV PUSH 4 mg Q4H PRN Administration Nausea Pantoprazole Sodium 40 mg 11/10/24 09:00 11/13/24 08:51 Pantoprazole 40 Mg Tablet PO 40 mg Q12HR MILLA Administration Prochlorperazine Maleate 10 mg 11/09/24 09:30 11/09/24 10:28 Prochlorperazine Maleate 5 Mg Tablet PO 10 mg Q6H PRN Administration Nausea And Vomiting Sacubitril/Valsartan 1 tab 11/07/24 21:00 11/11/24 08:35 Sacubitril/Valsartan 24-26 Mg Tablet PO 1 tab Q12HR MILLA Administration Spironolactone 25 mg 11/08/24 09:00 11/11/24 08:35 Spironolactone 25 Mg Tablet PO 25 mg QAM MILLA Administration Radiology Results: ITS Impressions Chest/Abdomen/Pelvis CT 11/05/24 07:01 IMPRESSION: 1. Extensive patchy airspace consolidation, consistent with pneumonia. 2: Sclerotic lesion left femoral head, most likely benign bone island, although in the presence of enlarged prostate gland, metastatic disease secondary to prostate cancer should be considered. Head/Cervical Spine/Facial Bones CT 11/05/24 07:07 IMPRESSION: 1. No acute abnormality of the facial bones or cervical spine. 2: Severe cervical spondylosis. 3: Patchy upper lobe infiltrates, consistent with pneumonia. Head CT 11/05/24 07:11 IMPRESSION: 1. No acute intracranial abnormality. Carotid Doppler Study 11/06/24 15:13 IMPRESSION: 1. Less than 50% stenosis in the right internal carotid artery. 2. Less than 50% stenosis in the left internal carotid artery. Modified Barium Swallow 11/08/24 14:42 IMPRESSION: 1. Normal modified barium swallow. 2. Please refer to the speech therapy report for recommendations. Abdomen X-Ray 11/09/24 09:59 IMPRESSION: 1. Normal bowel gas pattern. Chest X-Ray 11/10/24 06:00 IMPRESSION: 1. No acute cardiopulmonary disease. Labs Labs: Laboratory Results - last 24 hr 11/12/24 23:36 Triglycerides 134
[2024-11-14] VITALS (8 sets, daily range): BP systolic 130–132; BP diastolic 72–80; PULSE 54–109; RESP 16–17; TEMP 35.8–37; O2SAT 97–98
[2024-11-14] MEDS: ASPIRIN 81 MG CHEWABLE TABLET PO (09:08)
[2024-11-14] MEDS: ATORVASTATIN 40 MG TABLET PO (09:08)
[2024-11-14] MEDS: PANTOPRAZOLE 40 MG TABLET PO (09:08)
[2024-11-14] MEDS: EMPAGLIFLOZIN 10 MG TABLET PO (09:08)
[2024-11-14] MEDS: METOPROLOL SUCCINATE EXT REL 50 MG TABCR PO (09:08)
[2024-11-14] MEDS: ENOXAPARIN 40 MG/0.4 ML SYRINGE SUB-Q (09:08)
--- NOTE | 2024-11-14 09:39 | PCNFU ---
Nutrition Follow-Up Complete: Predicted suboptimal energy intake as related to mechanical ventilation as evidenced by NPO/tube feedings. Meet estimated nutritional needs - goal is being met wit PO intake Goal: Pt current nutrition is Heart healthy diet with Ensure Enlive BID (350 kcal, 20 g protein) Nutrition recommendation: No new nutrition recommendations. Continue current nutrition care plan and orders. Agree with orders Last recorded weight is 81.2 kg. Bowel Motility: +2 BMs 11/13/24 Labs Reviewed: No new labs since 11/12 Meds Noted: Spironolactone, protonix, Zofran Skin: WNL Additional Notes: Appetite and intakes are good. No new recommendations. Agree with current orders. awaiting placement Will monitor weight, labs, skin, diet orders, meds every Thursday and Thursday.
--- NOTE | 2024-11-14 15:59 | PM.DS ---
DS: Admitting Diagnosis Discharge Date 11/14/24 Admitting Diagnosis Fall, unresponsive. DS: Discharge Diagnosis Discharge Diagnosis (1) Acute respiratory failure with hypoxia: Code(s): J96.01 - Acute respiratory failure with hypoxia Status: Acute (2) COVID-19: Code(s): U07.1 - COVID-19 Status: Acute (3) Pneumonia: Code(s): J18.9 - Pneumonia, unspecified organism Status: Acute (4) Elevated troponin: Code(s): R79.89 - Other specified abnormal findings of blood chemistry Status: Acute (5) Syncope: Code(s): R55 - Syncope and collapse Status: Acute (6) LV dysfunction: Code(s): I51.9 - Heart disease, unspecified Status: Acute (7) Essential hypertension: Code(s): I10 - Essential (primary) hypertension Status: Acute (8) Hyperlipidemia: Code(s): E78.5 - Hyperlipidemia, unspecified Status: Acute (9) Nausea: Code(s): R11.0 - Nausea Status: Acute DS: Summary Hospital Course Reason for hospitalization: 74yo male with HLD and GERD here after being found unresponsive after a fall. Please see H&P for details. Hospital Course: Patient with fall/syncope and found to have acute respiratory failure with agonal breathing. [place] to be multifactorial secondary to pneumonia (?aspiration), CHF and/or COVID-19. Patient tested positive for SARS-CoV-2 PCR. Patient was intubated in ED. CT ch/abd/pelvis showed extensive patchy airspace consolidation, consistent with pneumonia and a sclerotic lesion left femoral head, most likely benign bone island, although in the presence of enlarged prostate gland, metastatic disease secondary to prostate cancer should be considered. PSA was 5.5. Bone scan showing arthritic uptake but nothing suspicious for malignancy. MRSA screen is negative. BCx negative. Sputum culture negative. Patient was able to be extubated after a successful weaning trial. Weaned off of oxygen as well. Bronchodilators changed to p.r.n. Patient received Lasix IV intermittently. He completed a course of antibiotics. He received a dose of tocilizumab in the ER. He completed a course of remdesivir; stopped dexamethasone after 6 days since on room air and recovering normally. Patient also with elevated troponins to 0.28. Initial EKG showed tachycardia (possible sinus tach vs atrial flutter), LAD and LBBB. No old EKG to compare. Echo 11/05 showing mildly increased left ventricular wall thickness, moderately reduced LV systolic fxn (EF 30-35%), and global hypokinesis with more pronounced hypokinesis of the anteroseptum, mid inferoseptum, apex. The left ventricular diastolic function is grade I diastolic dysfunction and no significant valvular disease. Cardiology consulted and appreciate their evaluation and recommendations. Elevated troponin felt related to type 2 infarct secondary to resp failure, pneumonia, CAD, arrhythmias which could be related to syncopal episode. Repeat Echo showing EF 60-65% with normal biventricular size and systolic function. Medications adjusted. Patient presented with fall felt related to syncope secondary to hypoxia. CT head on admission showing no acute intracranial abnormality. CT cervical spine/facial bones showing no acute abnormality of the facial bones or cervical spine. Less than 50% stenosis bilaterally on carotid Doppler. Patient work PT and OT. He had clinical improvement. He overall did well and was able to be discharged home with home health on 11/14/2024. Status at Discharge Cognitive/behavioral status at discharge: stable. Time Spent with Patient Time attestation: Total time spent providing and/or coordinating discharge services: 38 minutes Time spent: Greater than 30 minutes Exam Narrative: AF 96.5 132/72 64 16 98% ra Gen - NARD Chest - CTA bilaterally, nml RR CV - RRR S1/S2. Telemetry showing PVCs Abd - Soft, NT/ND, Positive BS Ext - No pedal edema Psych - Nml mood and affect Skin - Warm and dry Discharge Plan Discharge Attending physician on discharge: Riley Martines Consulting providers: Evan Benavides; Jose Luis Yeager Discharging Clinician: Riley Martines Anticipated Discharge Date/Time: 11/14/24 16:15 Patient Disposition: Home Health Service Activity: as tolerated Diet: heart healthy Discharge Instructions: Per Care Coordination: [facility] [phone] has been arranged for physical and occupational therapy. RN - Please fax discharge orders to [phone] Take precautions to avoid falls. Rise slowly from a lying or sitting position. Pause before standing or walking. Check daily morning weights after voiding. Call your doctor if you gain more than 3 lb in 2 days or 5 lb in 1 week. Contact your doctor or call 911 and come to the Emergency Room if you have any type of trauma, lightheadedness with standing or other worrisome symptoms. Avoid NSAIDs (ibuprofen, naproxen, Aleve). Tylenol is safe to take. Follow-up with your primary care provider in 1-2 weeks. Please call for appointment. Follow-up with Cardiology in 2-3 weeks. Please call for an appointment. Thank you for using [facility] for your health care needs. Patient Instructions: Antibiotic Form Patient Language: Amharic Stand Alone Forms: General Discharge Information Follow-up/Referrals: Shana,Sharif Spencer Jr., MD [Primary Care Provider] - Call for Appointment Jose Luis Yeager MD [Physician] - Call for Appointment Discharge Medications: New atorvastatin 40 mg Tablet 40 mg PO DAILY Qty: 30 2RF metoprolol succinate 50 mg Tablet Extended Release 24 Hr 50 mg PO QAM Qty: 30 2RF aspirin [Children's Aspirin] 81 mg Tablet,Chewable 81 mg PO DAILY@0800 Qty: 30 2RF Continued omeprazole 40 mg capsule,delayed release(DR/EC) 40 mg PO DAILY Discontinued celecoxib 200 mg capsule 200 mg PO DAILY Date of admission: 11/05/24 07:59 Primary Care Provider: ShanaSharif Jr. Admitting Provider: Nataly Chavis Attending physician on admission: Nataly Chavis Condition: Stable Hospitalist MIPS Heart Failure (Exclusion) Patient has history of Heart Transplant or Left Ventricular Assistive Device?: No IF YES, STOP HERE Heart Failure (Qualifier) Patient has current or prior documentation of LVEF less than or equal to 40%, or mod/servere depressed LVSF?: No IF NO, STOP HERE
== END 2024-11-14 16:55 | disposition home health service (06) | DRG 208 ==
LOC: ANHED 11-05 01:37 → ANHICU 11-05 02:18 → ANH2MED 11-10 11:57 → ANHICU 11-15 08:43
PROVIDERS: Internal Medicine; Physician Assistant; Admitting Provider Hospitalist; Emergency Provider Emergency Medicine; PCP Hospitalist; Visit Provider Internal Medicine
DX: U07.1 COVID-19 (principal); J96.01 Acute respiratory failure with hypoxia; J18.9 Pneumonia, unspecified organism; I21.A1 Myocardial infarction type 2; I50.22 Chronic systolic (congestive) heart failure; E78.5 Hyperlipidemia, unspecified; K21.9 Gastro-esophageal reflux disease without esophagitis; M89.8X5 Other specified disorders of bone, thigh
CPT/HCPCS: 31500; 36415; 36600; 70450; 70486; 71045; 71250; 72125; 74018; 74176; 78306; 80053; 80069; 80202; 80307; 81001; 82077; 82248; 82375; 82728; 82805; 82948; 83050; 83605; 83615; 83690; 83735; 83880; 84100; 84145; 84153; 84478; 84484; 85018; 85025; 85055; 85610; 85730; 86140; 86738; 87040; 87070; 87205; 87449; 87637; 87641; 87899; 92611; 93005; 93306; 93308; 93880; 94002; 94003; 94640; 96361; 96365; 96366; 96367; 96375; 96376; 97110; 97161; 97166; 97530; 99291; A9270; A9503; G0378; J0248; J0330; J0360; J0456; J0696; J1100; J1650; J1940; J2250; J2404; J2405; J2470; J2704; J3010; J3370; J7030; P9047; Q0249